=== PATIENT | female | born 1960 | race American Indian/Alaskan Native ===

== ENCOUNTER 2016-06-12 12:34 | Emergency (ER) | payer MEDICAID, SELFPAY ==
[2016-06-12 12:54] VITALS: BP 117/58
--- NOTE | 2016-06-12 14:20 | EDM.PDOC ---
Scribed by Jeanne Pate 06/12/16 [id number] for Tree Mcintosh MD ED HISTORY OF PRESENT ILLNESS - General Chief Complaint: Respiratory Problem Stated Complaint: COLD, BREATHING, STOMACH Time Seen by Provider: 06/12/16 13:20 Source of Information: Reports: Patient, RN, RN notes reviewed History Limitations: Reports: No limitations - History of Present Illness INITIAL COMMENTS - FREE TEXT/NARRATIVE: Complaining of cough with wheezing and increasing SOB x1 week. Denies fever or chills. Admits to occasional clear to white sputum. Denies chest pain or edema. Severity: moderate Location, General: Reports: chest Quality: Reports: Ache Improves with: Reports: None Worsens with: Reports: None Associated Symptoms (General): Reports: no other symptoms - Related Data Allergies/ADRs: Allergies Allergy/AdvReac Type Severity Reaction Status Date / Time cephalexin monohydrate Allergy Rash Verified 06/12/16 12:54 [From Keflex] codeine Allergy Hives Verified 06/12/16 12:54 hydroxyzine Allergy Cannot Verified 06/12/16 12:54 Remember propoxyphene napsylate Allergy Cannot Verified 06/12/16 12:54 [From Darvocet-N] Remember ondansetron AdvReac Intermediate Other Verified 06/12/16 12:54 Home Meds: Home Meds Loratadine [Claritin] 10 mg PO DAILY 05/08/13 [History] Montelukast [Singulair] 10 mg PO DAILY 08/23/13 [History] Levothyroxine 25 mcg PO DAILY 10/12/13 [History] Mometasone/Formoterol [Dulera 200 MCG/5 MCG] 2 puff INH BID 12/09/14 [History] Albuterol/Ipratropium [DuoNeb 3.0-0.5 MG/3 ML] 3 ml NEB Q6HRRT neb 01/14/15 [Rx ] Omeprazole 40 mg PO BIDAC #60 cap.sr 01/14/15 [Rx] Albuterol Sulfate [Proventil Hfa] 6.7 gm IH Q6HR PRN 05/15/15 [History] Benzonatate [Tessalon Perles] 200 mg PO TID PRN 05/15/15 [History] Aspirin 325 mg PO DAILY 02/18/16 [History] Clopidogrel [Plavix] 75 mg PO DAILY 02/18/16 [History] Past Medical History HEENT History: Reports: Allergic rhinitis, Impaired vision Other HEENT History: wears glasses but not her at this time Other Cardiovascular History: 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 Respiratory History: Reports: Asthma, COPD Gastrointestinal History: Reports: GERD, Hiatal hernia Other OB/BYN History: 4 nvd Musculoskeletal History: Reports: Arthritis Psychiatric History: Reports: Anxiety Endocrine/Metabolic History: Reports: Hypothyroidism, Obesity/BMI 30+ - Infectious Disease History Infectious Disease History: Reports: Chicken pox - Past Surgical History Other Musculoskeletal Surgeries/Procedures:: SCREW LEFT BUNION REPAIR Social & Family History - Family History Family Medical History: Noncontributory Cardiac: Reports: CAD, Heart failure, High cholesterol, Hypertension, [place] Respiratory: Reports: Asthma, COPD GI: Reports: Cholelithiasis : Reports: Renal disease/insufficiency Musculoskeletal: Reports: Arthritis, Back pain, chronic Neurological: Reports: CVA Endocrine/Metabolic: Reports: Diabetes, type II, Obesity/MBI 30+ Oncologic: Reports: Prostate - Tobacco Use Smoking Status *Q: Former Smoker Years of Tobacco use: 40 Packs/Tins Daily: 0.1 Used Tobacco, but Quit: Yes Month Tobacco Last Used: 2014 Second Hand Smoke Exposure: Yes - Caffeine Use Caffeine Use: Reports: Coffee, Soda - Alcohol Use Days Per Week of Alcohol Use: 0 - Recreational Drug Use Recreational Drug Use: No - Living Situation & Occupation Living situation: Reports: with family Occupation: unemployed ED ROS GENERAL - Review of Systems Review Of Systems: ROS reveals no pertinent complaints other than HPI. ED EXAM, GENERAL - Physical Exam Exam: See Below Exam Limited By: No limitations General Appearance: alert, WD/WN, no apparent distress, obese Eye Exam: bilateral eye: normal inspection Ears: normal external exam, normal canal, hearing grossly normal, normal TMs Nose: normal inspection, normal mucosa, no blood Throat/Mouth: Normal inspection, Normal lips, Normal teeth, Normal gums, Normal oropharynx, Normal voice, No airway compromise Head: atraumatic, normocephalic Neck: normal inspection, supple, non-tender, full range of motion Respiratory/Chest: no respiratory distress, no accessory muscle use, decreased breath sounds, wheezing, other (decreased sounds in bilateral bases. Scattered wheezes throughout bilateral lung harris. ) Cardiovascular: normal peripheral pulses, regular rate, rhythm, no edema, no gallop, no JVD, no murmur, no rub GI/Abdominal: normal bowel sounds, soft, non tender, no distention Back Exam: normal inspection, full range of motion, NT Extremities: normal inspection, normal range of motion, non-tender, normal capillary refill, no pedal edema Neurological: alert, oriented, CN II-XII intact, normal cognition, normal gait, normal reflexes, no motor/sensory deficits Psychiatric: normal affect, normal mood Skin Exam: Warm, Dry, Intact, Normal color, No rash Course - Vital Signs Last Recorded V/S: Last Vital Signs Temp 35.9 C 06/12/16 12:51 Pulse 80 06/12/16 12:51 Resp 16 06/12/16 12:51 BP 117/58 L 06/12/16 12:51 Pulse Ox 96 06/12/16 12:51 - Radiology Interpretation Free Text/Narrative:: chest x-ray: 9.4cm air fluid level in the retrocardiac region may represent a large hiatal hernia. Opacity in the left lower lobe may represent atelectasis or pneumonia per rad report. Departure - Departure Time of Disposition: 13:52 Disposition: Home, Self-Care 01 Condition: fair Clinical Impression: Acute exacerbation of chronic bronchitis, COPD with acute exacerbation Instructions: Chronic Obstructive Pulmonary Disease Exacerbation, [id number] , Acute Bronchitis, [id number] Forms: ED Department Discharge Additional Instructions: Zithromax 250mg. Prednisone 20mg. Tessalone Perles 200mg. Follow up in 2-3 days if not improved. I have read and agree with the documentation that has been completed regarding this visit. By signing this record, I attest that the documentation was completed in my physical presence and is an accurate record of the encounter.
== END 2016-06-12 13:55 | disposition home or self-care (01) ==
LOC: DL.ED 12:34
DX: J44.1 Chronic obstructive pulmonary disease with (acute) exacerbation (principal); J45.909 Unspecified asthma, uncomplicated; K21.9 Gastro-esophageal reflux disease without esophagitis; M19.90 Unspecified osteoarthritis, unspecified site; F41.9 Anxiety disorder, unspecified; E03.9 Hypothyroidism, unspecified; E66.9 Obesity, unspecified; Z88.1 Allergy status to other antibiotic agents; Z88.5 Allergy status to narcotic agent; Z88.8 Allergy status to other drugs, medicaments and biological substances; Z79.82 Long term (current) use of aspirin; Z79.899 Other long term (current) drug therapy; Z87.891 Personal history of nicotine dependence
CPT/HCPCS: 71020; 99283

== ENCOUNTER 2016-06-22 18:30 | Emergency (ER) | payer MEDICAID ==
[2016-06-22 22:43] LABS: CHLORIDE,CL 107 mmol/L (101-111); SODIUM,NA 137 mmol/L (135-145)
[2016-06-22 23:27] VITALS: BP 116/64
--- NOTE | 2016-06-22 23:50 | EDM.PDOC ---
ED HPI GENERAL MEDICAL PROBLEM - General Chief Complaint: Abdominal Pain Stated Complaint: STOMACH PAIN/HYNERIA Time Seen by Provider: 06/22/16 21:45 Source of Information: Reports: Patient History Limitations: Reports: No Limitations - History of Present Illness INITIAL COMMENTS - FREE TEXT/NARRATIVE: c/o lower abdominal pain right medial worse with movement. Has hx of hernia in area. Pain not relieved with tylenol or ibuprofen. Pain gradually increasing. attempted to contact PCP this afternoon around 1pm and was told to go to ER. No fever or nausea. Pain improved with rest. Initial referral to [facility] for suregery declined. Awaiting new referral for other facility for repair. Lower Abdominal Pain Score (Numeric/FACES): 8 - Related Data Allergies Allergy/AdvReac Type Severity Reaction Status Date / Time cephalexin monohydrate Allergy Rash Verified 06/12/16 12:54 [From Keflex] codeine Allergy Hives Verified 06/12/16 12:54 hydroxyzine Allergy Cannot Verified 06/12/16 12:54 Remember pantoprazole [From Protonix] Allergy Tremors Verified 06/22/16 18:58 propoxyphene napsylate Allergy Cannot Verified 06/12/16 12:54 [From Darvocet-N] Remember ondansetron AdvReac Intermediate Other Verified 06/12/16 12:54 Home Meds: Home Meds Loratadine [Claritin] 10 mg PO DAILY 05/08/13 [History] Montelukast [Singulair] 10 mg PO DAILY 08/23/13 [History] Levothyroxine 25 mcg PO DAILY 10/12/13 [History] Mometasone/Formoterol [Dulera 200 MCG/5 MCG] 2 puff INH BID 12/09/14 [History] Albuterol/Ipratropium [DuoNeb 3.0-0.5 MG/3 ML] 3 ml NEB Q6HRRT neb 01/14/15 [Rx ] Omeprazole 40 mg PO BIDAC #60 cap.sr 01/14/15 [Rx] Albuterol Sulfate [Proventil Hfa] 6.7 gm IH Q6HR PRN 05/15/15 [History] Benzonatate [Tessalon Perles] 200 mg PO TID PRN 05/15/15 [History] Aspirin 325 mg PO DAILY 02/18/16 [History] Clopidogrel [Plavix] 75 mg PO DAILY 02/18/16 [History] Past Medical History HEENT History: Reports: Allergic Rhinitis, Impaired Vision Other HEENT History: wears glasses but not her at this time Other Cardiovascular History: 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 Respiratory History: Reports: Asthma, COPD Gastrointestinal History: Reports: Cholelithiasis, GERD, Hiatal Hernia Other OB/BYN History: 4 nvd Musculoskeletal History: Reports: Arthritis Psychiatric History: Reports: Anxiety Endocrine/Metabolic History: Reports: Hypothyroidism, Obesity/BMI 30+ - Infectious Disease History Infectious Disease History: Reports: Chicken Pox - Past Surgical History GI Surgical History: Reports: Hernia Repair/Other Other Musculoskeletal Surgeries/Procedures:: SCREW LEFT BUNION REPAIR Social & Family History - Family History Family Medical History: Noncontributory Cardiac: Reports: CAD, Heart Failure, High Cholesterol, Hypertension, [place] Respiratory: Reports: Asthma, COPD GI: Reports: Cholelithiasis : Reports: Renal Disease/Insufficiency Musculoskeletal: Reports: Arthritis, Back pain, Chronic Neurological: Reports: CVA Endocrine/Metabolic: Reports: Diabetes, type II, Obesity/MBI 30+ Oncologic: Reports: Prostate - Tobacco Use Smoking Status *Q: Former Smoker Years of Tobacco use: 40 Packs/Tins Daily: 0.1 Used Tobacco, but Quit: Yes Month Tobacco Last Used: 2 Second Hand Smoke Exposure: Yes - Caffeine Use Caffeine Use: Reports: Soda, Tea - Alcohol Use Days Per Week of Alcohol Use: 0 - Recreational Drug Use Recreational Drug Use: No - Living Situation & Occupation Living situation: Reports: with Family Occupation: Unemployed ED ROS GENERAL - Review of Systems Review Of Systems: See Below Constitutional: Denies: Fever HEENT: Reports: No Symptoms Respiratory: Reports: Sputum Cardiovascular: Reports: No Symptoms GI/Abdominal: Reports: Abdominal Pain. Denies: Decreased Appetite, Distension, Nausea, Vomiting : Reports: No Symptoms Skin: Reports: No Symptoms Neurological: Reports: No Symptoms Psychiatric: Reports: No Symptoms ED EXAM, GI/ABD - Physical Exam Exam: See Below Exam Limited By: No Limitations General Appearance: Alert, Mild Distress, Obese Eyes: Bilateral: EOMI Ears: Normal External Exam Nose: Normal Inspection Throat/Mouth: Normal Inspection Head: Atraumatic, Normocephalic Neck: Normal Inspection Respiratory/Chest: No Respiratory Distress, Lungs Clear, Normal Breath Sounds Cardiovascular: Normal Peripheral Pulses, Regular Rate, Rhythm GI/Abdominal: Normal Bowel Sounds, Soft, Tenderness (mid right medial abdomen, point tenderness, no mass or bulging. ). No: Guarding, Rebound, Rigidity Neurological: Alert, Oriented Psychiatric: Normal Affect, Normal Mood Skin Exam: Warm, Dry, Intact, Normal Color Course - Vital Signs Last Recorded V/S: Last Vital Signs Temp 97.2 F 06/22/16 23:23 Pulse 62 06/22/16 23:23 Resp 16 06/22/16 23:23 BP 116/64 06/22/16 23:23 Pulse Ox 97 06/22/16 23:23 - Orders/Labs/Meds Orders: Active Orders 24 hr Category Date Time Status Abdomen Pelvis wo Cont [CT] Urgent Exams 06/22/16 23:01 Taken Labs: Laboratory Tests 06/22/16 06/22/16 06/22/16 Range/Units 22:14 22:14 22:54 WBC 10.2 H (5.0-10.0) 10^3/uL RBC 4.40 (4.2-5.4) 10^6/uL Hgb 11.3 L (12.0-16.0) g/dL Hct 37.0 (37.0-47.0) % MCV 84.1 (80-100) fL MCH 25.7 L (27.0-34.0) pg MCHC 30.5 L (33.0-35.0) g/dL Plt Count 247 (150-450) 10^3/uL Neut % (Auto) 69.7 (42.2-75.2) % Lymph % (Auto) 17.1 L (20.5-50.1) % Bell % (Auto) 6.0 (2-8) % Eos % (Auto) 6.8 H (1.0-3.0) % Baso % (Auto) 0.4 (0.0-1.0) % Sodium 137 (135-145) mmol/L Potassium 4.4 (3.6-5.0) mmol/L Chloride 107 (101-111) mmol/L Carbon Dioxide 27.0 (21.0-31.0) mmol/L Anion Gap 7.4 BUN 20 H (7-18) mg/dL Creatinine 0.6 (0.6-1.3) mg/dL Est Cr Clr Drug Dosing 83.79 mL/min Estimated GFR (MDRD) > 60 BUN/Creatinine Ratio 33.33 Glucose 99 (74-105) mg/dL Calcium 8.2 L (8.4-10.2) mg/dl Total Bilirubin 0.4 (0.2-1.0) mg/dL AST 19 (10-42) IU/L ALT 27 (10-60) IU/L Alkaline Phosphatase 77 (42-121) IU/L Total Protein 6.4 L (6.7-8.2) g/dl Albumin 3.6 (3.2-5.5) g/dl Globulin 2.8 Albumin/Globulin Ratio 1.29 Amylase 43 (28-100) U/L Urine Color Yellow (YELLOW) Urine Appearance Slightly cloudy (CLEAR) Urine pH 7.0 (5.0-9.0) Ur Specific [place] 1.020 (1.005-1.030) Urine Protein 30 H (NEGATIVE) Urine Glucose (UA) Negative (NEGATIVE) Urine Ketones Negative (NEGATIVE) Urine Occult Blood Negative (NEGATIVE) Urine Nitrite Negative (NEGATIVE) Urine Bilirubin Negative (NEGATIVE) Urine Urobilinogen 1.0 (0.2-1.0) mg/dL Ur Leukocyte Esterase Negative (NEGATIVE) Urine RBC 0-5 /HPF Urine WBC 0-5 (0-5/HPF) /HPF Ur Epithelial Cells Moderate H /HPF Urine Mucus Moderate H /LPF Meds: Medications Discontinued Medications Generic Name Dose Route Start Last Admin Trade Name Freq PRN Reason Stop Dose Admin Hydrocodone Bitart/Acetaminophen Confirm 06/22/16 23:55 06/23/16 00:01 [place] 325-10 Mg Administered 06/22/16 23:56 Not Given Dose 1 tab .ROUTE .STK-MED ONE - Radiology Interpretation Free Text/Narrative:: CT hiatal hernia, diverticulosis without diverticulitis, Departure - Departure Time of Disposition: 23:49 Disposition: Home, Self-Care 01 Condition: good Clinical Impression: Hernia Abdominal pain Qualifiers: Abdominal location: right lower quadrant Qualified Code(s): R10.31 - Right lower quadrant pain - Discharge Information Instructions: Abdominal Pain, Adult, [id number] Forms: ED Department Discharge Additional Instructions: hydrocodone 10/325 one every 8 hours as needed for pain #11 follow up in clinic as scheduled - My Orders Last 24 Hours: My Active Orders 06/22/16 23:01 Abdomen Pelvis wo Cont [CT] Urgent - Assessment/Plan Last 24 Hours: My Active Orders 06/22/16 23:01 Abdomen Pelvis wo Cont [CT] Urgent
[2016-06-22] MEDS ORDERED: Acetaminophen/HYDROcodone 325-10 MG Tab PO ONE (23:55)
[2016-06-22] MEDS ORDERED: Acetaminophen/HYDROcodone 325-10 MG Tab ONE (23:55)
== END 2016-06-22 23:58 | disposition home or self-care (01) ==
LOC: DL.ED 18:30
DX: K44.9 Diaphragmatic hernia without obstruction or gangrene (principal); K57.90 Diverticulosis of intestine, part unspecified, without perforation or abscess without bleeding; J44.9 Chronic obstructive pulmonary disease, unspecified; K21.9 Gastro-esophageal reflux disease without esophagitis; M19.90 Unspecified osteoarthritis, unspecified site; F41.9 Anxiety disorder, unspecified; E03.9 Hypothyroidism, unspecified; E66.9 Obesity, unspecified; Z98.890 Other specified postprocedural states; Z87.891 Personal history of nicotine dependence; Z88.8 Allergy status to other drugs, medicaments and biological substances; Z88.5 Allergy status to narcotic agent; Z79.82 Long term (current) use of aspirin; Z79.899 Other long term (current) drug therapy
CPT/HCPCS: 36415; 74176; 80053; 81001; 82150; 85025; 99284; A9270

== ENCOUNTER 2016-07-26 21:30 | Emergency (ER) | payer MEDICAID ==
[2016-07-27] VITALS: BP 99/62
[2016-07-27] MEDS ORDERED: Albuterol 0.083% 2.5 MG/3 ML Neb Soln NEB ONE (00:48)
[2016-07-27] MEDS ORDERED: predniSONE 20 MG Tab PO ONE (00:48)
[2016-07-27] MEDS ORDERED: Azithromycin 250 MG Tab PO ONE (00:49)
--- NOTE | 2016-07-27 00:54 | EDM.PDOC ---
ED HPI GENERAL MEDICAL PROBLEM - General Chief Complaint: Respiratory Problem Stated Complaint: BEATHING, LUNGS, [id number] Time Seen by Provider: 07/27/16 00:27 Source of Information: Reports: Patient - History of Present Illness INITIAL COMMENTS - FREE TEXT/NARRATIVE: sorethroat ear pain tuesday, now moved into chest. Mattery eye today, chills no fever. Hx COPD. Cough productive "bright green slime" - Related Data Allergies Allergy/AdvReac Type Severity Reaction Status Date / Time cephalexin monohydrate Allergy Rash Verified 07/26/16 21:54 [From Keflex] codeine Allergy Hives Verified 07/26/16 21:54 hydroxyzine Allergy Cannot Verified 07/26/16 21:54 Remember pantoprazole [From Protonix] Allergy Tremors Verified 07/26/16 21:54 propoxyphene napsylate Allergy Cannot Verified 07/26/16 21:54 [From Darvocet-N] Remember ondansetron AdvReac Intermediate Other Verified 07/26/16 21:54 Home Meds: Home Meds Loratadine [Claritin] 10 mg PO DAILY 05/08/13 [History] Montelukast [Singulair] 10 mg PO DAILY 08/23/13 [History] Levothyroxine 25 mcg PO DAILY 10/12/13 [History] Mometasone/Formoterol [Dulera 200 MCG/5 MCG] 2 puff INH BID 12/09/14 [History] Albuterol/Ipratropium [DuoNeb 3.0-0.5 MG/3 ML] 3 ml NEB Q6HRRT neb 01/14/15 [Rx ] Omeprazole 40 mg PO BIDAC #60 cap.sr 01/14/15 [Rx] Albuterol Sulfate [Proventil Hfa] 6.7 gm IH Q6HR PRN 05/15/15 [History] Benzonatate [Tessalon Perles] 200 mg PO TID PRN 05/15/15 [History] Aspirin 81 mg PO DAILY 02/18/16 [History] Past Medical History HEENT History: Reports: Allergic Rhinitis, Impaired Vision Other HEENT History: wears glasses but not her at this time Other Cardiovascular History: 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 Respiratory History: Reports: Asthma, COPD Gastrointestinal History: Reports: Cholelithiasis, GERD, Hiatal Hernia Other OB/BYN History: 4 nvd Musculoskeletal History: Reports: Arthritis Psychiatric History: Reports: Anxiety Endocrine/Metabolic History: Reports: Hypothyroidism, Obesity/BMI 30+ - Infectious Disease History Infectious Disease History: Reports: Chicken Pox - Past Surgical History GI Surgical History: Reports: Hernia Repair/Other Other Musculoskeletal Surgeries/Procedures:: SCREW LEFT BUNION REPAIR Social & Family History - Family History Family Medical History: Noncontributory Cardiac: Reports: CAD, Heart Failure, High Cholesterol, Hypertension, [place] Respiratory: Reports: Asthma, COPD GI: Reports: Cholelithiasis : Reports: Renal Disease/Insufficiency Musculoskeletal: Reports: Arthritis, Back pain, Chronic Neurological: Reports: CVA Endocrine/Metabolic: Reports: Diabetes, type II, Obesity/MBI 30+ Oncologic: Reports: Prostate - Tobacco Use Smoking Status *Q: Unknown Ever Smoked Years of Tobacco use: 40 Packs/Tins Daily: 0.1 Used Tobacco, but Quit: Yes Month Tobacco Last Used: 2 Second Hand Smoke Exposure: No - Caffeine Use Caffeine Use: Reports: Coffee - Alcohol Use Days Per Week of Alcohol Use: 0 - Recreational Drug Use Recreational Drug Use: No - Living Situation & Occupation Living situation: Reports: with Family Occupation: Unemployed ED ROS GENERAL - Review of Systems Review Of Systems: See Below Constitutional: Reports: No Symptoms HEENT: Reports: Ear Pain, Eye Discharge, Throat Pain, Throat Swelling Respiratory: Reports: Shortness of Breath, Wheezing Cardiovascular: Denies: No Symptoms GI/Abdominal: Reports: No Symptoms : Reports: No Symptoms Musculoskeletal: Reports: No Symptoms Skin: Reports: No Symptoms ED EXAM, GENERAL - Physical Exam Exam: See Below Exam Limited By: No Limitations General Appearance: Alert, Mild Distress Eye Exam: Bilateral Eye: EOMI Ears: Normal External Exam Ear Exam: Bilateral Ear: Discharge Nose: Normal Inspection Throat/Mouth: Normal Inspection Head: Atraumatic, Normocephalic Neck: Normal Inspection Respiratory/Chest: No Respiratory Distress, Lungs Clear, Normal Breath Sounds, Wheezing Cardiovascular: Normal Peripheral Pulses, Regular Rate, Rhythm GI/Abdominal: Normal Bowel Sounds Extremities: Normal Inspection Neurological: Alert, Oriented, Normal Cognition Psychiatric: Normal Affect Skin Exam: Warm, Dry, Intact, Normal Color Course - Vital Signs Last Recorded V/S: Last Vital Signs Temp 97.4 F 07/26/16 21:59 Pulse 67 07/27/16 00:00 Resp 20 07/27/16 00:00 BP 99/62 07/27/16 00:00 Pulse Ox 95 07/27/16 00:00 - Orders/Labs/Meds Orders: Active Orders 24 hr Category Date Time Status RT Aerosol Therapy [RC] ASDIRECTED Care 07/27/16 00:48 Active Meds: Medications Discontinued Medications Generic Name Dose Route Start Last Admin Trade Name Freq PRN Reason Stop Dose Admin Albuterol 2.5 mg 07/27/16 00:48 07/27/16 01:06 Proventil Neb Soln NEB 07/27/16 00:49 2.5 mg ONETIME ONE Administration Azithromycin 500 mg 07/27/16 00:49 07/27/16 01:04 Zithromax PO 07/27/16 00:50 500 mg ONETIME ONE Administration Prednisone 40 mg 07/27/16 00:48 07/27/16 01:05 Prednisone PO 07/27/16 00:49 40 mg ONETIME ONE Administration - Radiology Interpretation Free Text/Narrative:: CXR negative for acute process Departure - Departure Time of Disposition: 00:51 Disposition: Home, Self-Care 01 Condition: Fair Clinical Impression: COPD with acute exacerbation URI (upper respiratory infection) Qualifiers: URI type: unspecified URI Qualified Code(s): J06.9 - Acute upper respiratory infection, unspecified - Discharge Information Referrals: Florin Salmeron MD [Primary Care Provider] - Forms: ED Department Discharge Additional Instructions: prednisone 40mg in am then 20mg daily for 5 days azithromycin 250mg daily for 4 days continue nebulizer treatments follow up if not improving - My Orders Last 24 Hours: My Active Orders 07/27/16 00:48 RT Aerosol Therapy [RC] ASDIRECTED - Assessment/Plan Last 24 Hours: My Active Orders 07/27/16 00:48 RT Aerosol Therapy [RC] ASDIRECTED
== END 2016-07-27 01:21 | disposition home or self-care (01) ==
LOC: DL.ED 21:30
DX: J44.1 Chronic obstructive pulmonary disease with (acute) exacerbation (principal); J06.9 Acute upper respiratory infection, unspecified; J45.909 Unspecified asthma, uncomplicated; H54.7 Unspecified visual loss; K21.9 Gastro-esophageal reflux disease without esophagitis; M19.90 Unspecified osteoarthritis, unspecified site; E03.9 Hypothyroidism, unspecified; Z79.82 Long term (current) use of aspirin; E66.9 Obesity, unspecified; Z88.5 Allergy status to narcotic agent; Z88.8 Allergy status to other drugs, medicaments and biological substances; Z79.899 Other long term (current) drug therapy
CPT/HCPCS: 71010; 94640; 99283; A9270; J7620

== ENCOUNTER 2016-08-13 17:52 | Emergency (ER) | payer MEDICAID ==
[2016-08-13] MEDS ORDERED: Metoclopramide 10 MG/2 ML SDV IVPUSH ONE (19:06)
[2016-08-13] MEDS ORDERED: fentaNYL 100 MCG/2 ML SDV IVPUSH ONE (19:07)
[2016-08-13 19:53] LABS: CHLORIDE,CL 108 mmol/L (101-111); SODIUM,NA 141 mmol/L (135-145)
[2016-08-13 22:20] VITALS: BP 124/44
--- NOTE | 2016-08-13 23:43 | EDM.PDOC ---
ED HPI GENERAL MEDICAL PROBLEM - General Chief Complaint: Abdominal Pain Stated Complaint: ABD PAINS, HERNIA, [id number] Time Seen by Provider: 08/13/16 19:10 Source of Information: Reports: Patient History Limitations: Reports: No Limitations - History of Present Illness INITIAL COMMENTS - FREE TEXT/NARRATIVE: C/O severe abdominal pain since around noon after vacuuming. Nauseated this genna with one emesis. Known hiatal hernia, but pain is different more severe pain and nausea tonight. Onset: Today Duration: Constant Right Upper Abdomen Pain Score (Numeric/FACES): 2 - Related Data Allergies Allergy/AdvReac Type Severity Reaction Status Date / Time cephalexin monohydrate Allergy Rash Verified 08/13/16 18:50 [From Keflex] codeine Allergy Hives Verified 08/13/16 18:50 hydroxyzine Allergy Cannot Verified 08/13/16 18:50 Remember pantoprazole [From Protonix] Allergy Tremors Verified 08/13/16 18:50 propoxyphene napsylate Allergy Cannot Verified 08/13/16 18:50 [From Darvocet-N] Remember ondansetron AdvReac Intermediate Other Verified 08/13/16 18:50 Home Meds: Home Meds Loratadine [Claritin] 10 mg PO DAILY 05/08/13 [History] Montelukast [Singulair] 10 mg PO DAILY 08/23/13 [History] Levothyroxine 25 mcg PO DAILY 10/12/13 [History] Mometasone/Formoterol [Dulera 200 MCG/5 MCG] 2 puff INH BID 12/09/14 [History] Albuterol/Ipratropium [DuoNeb 3.0-0.5 MG/3 ML] 3 ml NEB Q6HRRT neb 01/14/15 [Rx ] Omeprazole 40 mg PO BIDAC #60 cap.sr 01/14/15 [Rx] Albuterol Sulfate [Proventil Hfa] 6.7 gm IH Q6HR PRN 05/15/15 [History] Benzonatate [Tessalon Perles] 200 mg PO TID PRN 05/15/15 [History] Aspirin 81 mg PO DAILY 02/18/16 [History] Past Medical History HEENT History: Reports: Allergic Rhinitis, Impaired Vision Other HEENT History: wears glasses but not her at this time Other Cardiovascular History: 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 Respiratory History: Reports: Asthma, COPD Gastrointestinal History: Reports: Cholelithiasis, GERD, Hiatal Hernia 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: Other OB/BYN History: 4 nvd Musculoskeletal History: Reports: Arthritis, Other (See Below) Other Musculoskeletal History: foot Psychiatric History: Reports: Anxiety Endocrine/Metabolic History: Reports: Hypothyroidism, Obesity/BMI 30+ - Infectious Disease History Infectious Disease History: Reports: Chicken Pox - Past Surgical History GI Surgical History: Reports: Cholecystectomy, Hernia Repair/Other Other Musculoskeletal Surgeries/Procedures:: SCREW LEFT BUNION REPAIR Social & Family History - Family History Family Medical History: Noncontributory Cardiac: Reports: CAD, Heart Failure, High Cholesterol, Hypertension, [place] Respiratory: Reports: Asthma, COPD GI: Reports: Cholelithiasis : Reports: Renal Disease/Insufficiency Musculoskeletal: Reports: Arthritis, Back pain, Chronic Neurological: Reports: CVA Endocrine/Metabolic: Reports: Diabetes, type II, Obesity/MBI 30+ Oncologic: Reports: Prostate - Tobacco Use Smoking Status *Q: Never Smoker Years of Tobacco use: 40 Packs/Tins Daily: 0.1 Used Tobacco, but Quit: Yes Month Tobacco Last Used: 2 Second Hand Smoke Exposure: No - Caffeine Use Caffeine Use: Reports: None - Alcohol Use Days Per Week of Alcohol Use: 0 - Recreational Drug Use Recreational Drug Use: No - Living Situation & Occupation Living situation: Reports: with Family Occupation: Unemployed ED ROS GENERAL - Review of Systems Review Of Systems: See Below Constitutional: Denies: Fever HEENT: Reports: No Symptoms Respiratory: Reports: No Symptoms Cardiovascular: Reports: No Symptoms GI/Abdominal: Reports: Abdominal Pain, Diarrhea, Decreased Appetite, Distension , Nausea, Vomiting (x1) : Reports: No Symptoms Musculoskeletal: Reports: No Symptoms Skin: Reports: No Symptoms Neurological: Reports: No Symptoms Psychiatric: Reports: No Symptoms ED EXAM, GI/ABD - Physical Exam Exam: See Below Exam Limited By: No Limitations General Appearance: Alert, Mild Distress, Obese Eyes: Bilateral: EOMI Ears: Normal External Exam, Normal TMs Nose: Normal Inspection Throat/Mouth: Normal Inspection, Normal Oropharynx Head: Atraumatic, Normocephalic Neck: Normal Inspection, Full Range of Motion Respiratory/Chest: No Respiratory Distress, Lungs Clear, Normal Breath Sounds Cardiovascular: Normal Peripheral Pulses, Regular Rate, Rhythm GI/Abdominal: Hypoactive Bowel Sounds, Tenderness, Distention. No: Tympanic Bowel Sounds, Guarding Back Exam: Normal Inspection Extremities: Normal Inspection Neurological: Alert, Oriented Psychiatric: Normal Affect Skin Exam: Warm, Dry, Intact Course - Vital Signs Last Recorded V/S: Last Vital Signs Temp 97.4 F 08/13/16 22:20 Pulse 72 08/13/16 22:20 Resp 16 08/13/16 22:20 BP 124/44 L 08/13/16 22:20 Pulse Ox 96 08/13/16 22:20 - Orders/Labs/Meds Labs: Laboratory Tests 08/13/16 08/13/16 08/13/16 Range/Units 19:08 19:25 19:25 WBC 7.8 (5.0-10.0) 10^3/uL RBC 4.73 (4.2-5.4) 10^6/uL Hgb 12.1 (12.0-16.0) g/dL Hct 38.7 (37.0-47.0) % MCV 81.8 (80-100) fL MCH 25.6 L (27.0-34.0) pg MCHC 31.3 L (33.0-35.0) g/dL Plt Count 266 (150-450) 10^3/uL Neut % (Auto) 69.4 (42.2-75.2) % Lymph % (Auto) 16.0 L (20.5-50.1) % Fleming % (Auto) 5.1 (2-8) % Eos % (Auto) 8.7 H (1.0-3.0) % Baso % (Auto) 0.8 (0.0-1.0) % PT 9.8 (9.0-12.0) SEC INR 1.0 (0.9-1.2) Sodium 141 (135-145) mmol/L Potassium 4.4 (3.6-5.0) mmol/L Chloride 108 (101-111) mmol/L Carbon Dioxide 23.0 (21.0-31.0) mmol/L Anion Gap 14.4 BUN 20 H (7-18) mg/dL Creatinine 0.8 (0.6-1.3) mg/dL Est Cr Clr Drug Dosing 62.10 mL/min Estimated GFR (MDRD) > 60 BUN/Creatinine Ratio 25.00 Glucose 104 (74-105) mg/dL Calcium 9.3 (8.4-10.2) mg/dl Total Bilirubin 0.3 (0.2-1.0) mg/dL AST 23 (10-42) IU/L ALT 29 (10-60) IU/L Alkaline Phosphatase 80 (42-121) IU/L Troponin I < 0.02 (0.00-0.02) ng/ml Total Protein 7.0 (6.7-8.2) g/dl Albumin 4.3 (3.2-5.5) g/dl Globulin 2.7 Albumin/Globulin Ratio 1.59 Amylase 46 (28-100) U/L Lipase 27 (22-51) U/L Meds: Medications Discontinued Medications Generic Name Dose Route Start Last Admin Trade Name Fazalq PRN Reason Stop Dose Admin Hydrocodone Bitart/Acetaminophen Confirm 08/13/16 23:49 08/13/16 23:51 [place] 325-10 Mg Administered 08/13/16 23:50 Not Given Dose 2 tab .ROUTE .STK-MED ONE Fentanyl 25 mcg 08/13/16 19:07 08/13/16 19:17 Sublimaze IVPUSH 08/13/16 19:08 25 mcg ONETIME ONE Administration Metoclopramide HCl 10 mg 08/13/16 19:06 08/13/16 19:16 Reglan IVPUSH 08/13/16 19:07 10 mg ONETIME ONE Administration - Radiology Interpretation Free Text/Narrative:: CT, Hiatal hernia, no obstruction Departure - Departure Time of Disposition: 23:38 Disposition: Home, Self-Care 01 Condition: Good Clinical Impression: Hiatal hernia Abdominal pain Qualifiers: Abdominal location: generalized Qualified Code(s): R10.84 - Generalized abdominal pain - Discharge Information Instructions: Abdominal Pain, Adult, [id number] Referrals: Florin Salmeron MD [Primary Care Provider] - Forms: ED Department Discharge Additional Instructions: light diet rest light activity follow up with PCP next week Hydrocodone 10/325 one every 8 hours as needed for pain #2
[2016-08-13] MEDS ORDERED: Acetaminophen/HYDROcodone 325-10 MG Tab ONE (23:49)
[2016-08-13] MEDS ORDERED: Acetaminophen/HYDROcodone 325-10 MG Tab PO ONE (23:49)
== END 2016-08-13 23:56 | disposition home or self-care (01) ==
LOC: DL.ED 17:52
DX: K44.9 Diaphragmatic hernia without obstruction or gangrene (principal); J45.909 Unspecified asthma, uncomplicated; J44.9 Chronic obstructive pulmonary disease, unspecified; K21.9 Gastro-esophageal reflux disease without esophagitis; M19.90 Unspecified osteoarthritis, unspecified site; F41.9 Anxiety disorder, unspecified; E03.9 Hypothyroidism, unspecified; E66.9 Obesity, unspecified; Z90.49 Acquired absence of other specified parts of digestive tract; Z98.890 Other specified postprocedural states; Z79.82 Long term (current) use of aspirin; Z79.899 Other long term (current) drug therapy; Z88.5 Allergy status to narcotic agent; Z88.1 Allergy status to other antibiotic agents; Z88.8 Allergy status to other drugs, medicaments and biological substances
CPT/HCPCS: 36415; 74176; 80053; 82150; 83690; 84484; 85025; 85610; 96374; 96375; 99284; J2765; J3010; A9270-GY

== ENCOUNTER 2016-09-06 20:04 | Emergency (ER) | payer MEDICAID ==
[2016-09-06 21:02] VITALS: BP 114/95
[2016-09-07] MEDS ORDERED: Acetaminophen/oxyCODONE 325-5 MG Tab PO ONE (00:51)
--- NOTE | 2016-09-07 01:11 | EDM.PDOC ---
[id number]: TEENA BARBOZA, [id number] Time Seen by Provider: 09/07/16 00:25 Source of Information: Reports: Patient History Limitations: Reports: No Limitations - History of Present Illness INITIAL COMMENTS - FREE TEXT/NARRATIVE: c/o mid abdominal pain since [place]. Hx hiatal hernia and appointment scheduled on Tuesday with surgeon. Has not tried anything except warm blanket to abdomen.States she didn't have any money to get anything OTC. No change in pain from usual. No vomiting or fever. Right Upper Abdomen Pain Score (Numeric/FACES): 8 - Related Data Allergies Allergy/AdvReac Type Severity Reaction Status Date / Time cephalexin monohydrate Allergy Rash Verified 09/06/16 21:02 [From Keflex] codeine Allergy Hives Verified 09/06/16 21:02 hydroxyzine Allergy Cannot Verified 09/06/16 21:02 Remember pantoprazole [From Protonix] Allergy Tremors Verified 09/06/16 21:02 propoxyphene napsylate Allergy Cannot Verified 09/06/16 21:02 [From Darvocet-N] Remember ondansetron AdvReac Intermediate Other Verified 09/06/16 21:02 Home Meds: Home Meds Loratadine [Claritin] 10 mg PO DAILY 05/08/13 [History] Montelukast [Singulair] 10 mg PO DAILY 08/23/13 [History] Levothyroxine 25 mcg PO DAILY 10/12/13 [History] Mometasone/Formoterol [Dulera 200 MCG/5 MCG] 2 puff INH BID 12/09/14 [History] Albuterol/Ipratropium [DuoNeb 3.0-0.5 MG/3 ML] 3 ml NEB Q6HRRT neb 01/14/15 [Rx ] Omeprazole 40 mg PO BIDAC #60 cap.sr 01/14/15 [Rx] Albuterol Sulfate [Proventil Hfa] 6.7 gm IH Q6HR PRN 05/15/15 [History] Benzonatate [Tessalon Perles] 200 mg PO TID PRN 05/15/15 [History] Aspirin 81 mg PO DAILY 02/18/16 [History] Past Medical History HEENT History: Reports: Allergic Rhinitis, Impaired Vision Other HEENT History: wears glasses but not her at this time Cardiovascular History: Reports: [place] Other Cardiovascular History: 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 Respiratory History: Reports: Asthma, COPD Gastrointestinal History: Reports: Cholelithiasis, GERD, 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 OB/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 History: 4 nvd Musculoskeletal History: Reports: Arthritis, Other (See Below) Other Musculoskeletal History: foot Psychiatric History: Reports: Anxiety Endocrine/Metabolic History: Reports: Hypothyroidism, Obesity/BMI 30+ - Infectious Disease History Infectious Disease History: Reports: Chicken Pox - Past Surgical History GI Surgical History: Reports: Cholecystectomy, Hernia Repair/Other Other Musculoskeletal Surgeries/Procedures:: SCREW LEFT BUNION REPAIR Social & Family History - Family History Family Medical History: Noncontributory Cardiac: Reports: CAD, Heart Failure, High Cholesterol, Hypertension, [place] Respiratory: Reports: Asthma, COPD GI: Reports: Cholelithiasis : Reports: Renal Disease/Insufficiency Musculoskeletal: Reports: Arthritis, Back pain, Chronic Neurological: Reports: CVA Endocrine/Metabolic: Reports: Diabetes, type II, Obesity/MBI 30+ Oncologic: Reports: Prostate - Tobacco Use Smoking Status *Q: Never Smoker Years of Tobacco use: 40 Packs/Tins Daily: 0.1 Used Tobacco, but Quit: Yes Month Tobacco Last Used: 2 Second Hand Smoke Exposure: No - Caffeine Use Caffeine Use: Reports: None - Alcohol Use Days Per Week of Alcohol Use: 0 - Recreational Drug Use Recreational Drug Use: No - Living Situation & Occupation Living situation: Reports: with Family Occupation: Unemployed ED ROS GENERAL - Review of Systems Review Of Systems: ROS reveals no pertinent complaints other than HPI. ED EXAM, GI/ABD - Physical Exam Exam: See Below Exam Limited By: No Limitations General Appearance: Alert, Mild Distress Eyes: Bilateral: EOMI Ears: Normal External Exam Nose: Normal Inspection Throat/Mouth: Normal Inspection, Normal Lips, Normal Oropharynx, Normal Voice Head: Atraumatic, Normocephalic Neck: Normal Inspection, Full Range of Motion Respiratory/Chest: No Respiratory Distress, Lungs Clear, Normal Breath Sounds Cardiovascular: Normal Peripheral Pulses, Regular Rate, Rhythm GI/Abdominal Exam: Normal Bowel Sounds, Soft, No Organomegaly, No Distention, Tender (mid abdomen with palpation and movment). No: Distended, Guarding, Rigid, Rebound, Abnormal Bowel Sounds Extremities: Normal Inspection Neurological: Alert, Oriented, Normal Cognition Psychiatric: Normal Affect Skin Exam: Warm, Dry, Intact, Normal Color Course - Vital Signs Last Recorded V/S: Last Vital Signs Temp 97.6 F 09/06/16 20:58 Pulse 96 09/06/16 20:58 Resp 20 09/06/16 20:58 BP 114/95 H 09/06/16 20:58 Pulse Ox 98 09/06/16 20:58 - Orders/Labs/Meds Meds: Medications Discontinued Medications Generic Name Dose Route Start Last Admin Trade Name Pedro Luis PRN Reason Stop Dose Admin Oxycodone/Acetaminophen 1 tab 09/07/16 00:51 09/07/16 00:59 Percocet 325-5 Mg PO 09/07/16 00:52 1 tab ONETIME ONE Administration Departure - Departure Time of Disposition: 01:07 Disposition: Home, Self-Care 01 Condition: Good Clinical Impression: Hiatal hernia, Abdominal pain - Discharge Information Instructions: Abdominal Pain, Adult, [id number] Forms: ED Department Discharge Additional Instructions: percocety 5/325 one every 12 hours as needed for severe pain follow with surgeon as scheduled tylenol or ibuprofen for mild- moderate pain
== END 2016-09-07 01:13 | disposition home or self-care (01) ==
LOC: DL.ED 20:04
DX: K44.9 Diaphragmatic hernia without obstruction or gangrene (principal); J45.909 Unspecified asthma, uncomplicated; I25.2 Old myocardial infarction; J44.9 Chronic obstructive pulmonary disease, unspecified; K21.9 Gastro-esophageal reflux disease without esophagitis; F41.9 Anxiety disorder, unspecified; E03.9 Hypothyroidism, unspecified; E66.9 Obesity, unspecified; Z68.39 Body mass index [BMI] 39.0-39.9, adult; Z79.82 Long term (current) use of aspirin; Z79.899 Other long term (current) drug therapy; Z90.49 Acquired absence of other specified parts of digestive tract; Z98.890 Other specified postprocedural states; Z88.1 Allergy status to other antibiotic agents; Z88.5 Allergy status to narcotic agent; Z88.8 Allergy status to other drugs, medicaments and biological substances
CPT/HCPCS: 99283; A9270

== ENCOUNTER 2017-01-27 05:08 | Day surgery (SDC) | payer MEDICAID ==
[2017-01-27] MEDS ORDERED: fentaNYL 100 MCG/2 ML SDV IV ONE ×3 (05:09→06:32)
[2017-01-27] MEDS ORDERED: Midazolam 1 MG/ML 2 ML SDV IV ONE ×3 (05:09→06:34)
[2017-01-27] MEDS ORDERED: Dextrose 5%-0.45% NaCl 1,000 ML IV SCH (06:00)
[2017-01-27] MEDS ORDERED: Sodium Chloride 0.9% 10 ML Syringe FLUSH PRN (06:00)
[2017-01-27] MEDS ORDERED: fentaNYL 100 MCG/2 ML SDV ONE (06:22)
[2017-01-27] MEDS ORDERED: Midazolam 1 MG/ML 2 ML SDV ONE (06:22)
[2017-01-27 10:12] VITALS: BP 108/55
--- NOTE | 2017-01-27 10:33 | OR ---
DATE: 01/27/2017 PROCEDURE: Esophagogastroduodenoscopy and multiple pinch biopsies. INSTRUMENT USED: GIF-H180 Olympus video panendoscope. PREMEDICATIONS: No oral topical anesthesia used. Fentanyl 100 mcg intravenous, Versed 2 mg intravenous. Nasal O2 cannula. The procedure was done under pulse oximetry, BP recording, and glass handler. INDICATION: The patient with longstanding difficulties of heartburn and status post Fernando fundoplication with persistent heartburn, upper abdominal pain, as well as some dysphagia, iron deficiency noted. Esophagogastroduodenoscopy is performed for detection of any active erosive lesions, H. pylori status to be determined, small bowel biopsies to be obtained for celiac disease if indicated, esophageal dilatations if indicated, endoscopic hemostasis therapy if needed. DESCRIPTION OF PROCEDURE: The scope was passed with ease. Adequate visualization of the esophagus was made from proximal to distal areas. No upper esophageal lesions identified. There was considerable deformity involving the distal esophagus and proximal gastric fundus area. No uphill or downhill esophageal varices. No Adela-Gordon tear. No evidence of erosive esophagitis by Rosanky criteria. No esophageal polyp or tumor mass identified. No proximal gastric varices noted. Gastric fundus examination by retroflexion showed no polypoid lesions, no gastric ulcer, malignant mass, or vascular ectasia identified. Duodenal bulb showed no ulcer. Visualized second part of the duodenum was unremarkable. Multiple pinch biopsies 4 in number were taken from different areas of the second part of the duodenum, tissues were also obtained from 9 and 12 o'clock positions of the duodenal bulb and sent for histopathologic evidence of celiac disease. Multiple pinch biopsies were obtained from the gastric antrum and proximal body and sent for PyloriTek test for H. pylori and histopathology. Scattered gastric antral erosions were noted. No bleeding was noted from any of the visualized areas at the completion of examination. Photographs were taken of the duodenal bulb, gastric antrum, fundus, and distal esophagus. There was some amount of food material retained in the stomach. IMPRESSION: 1. Status post Fernando fundoplication. 2. Gastric antral erosions. The patient tolerated the procedure well. [facility] /[id number]
== END 2017-01-27 08:53 | disposition home or self-care (01) ==
LOC: DL.ENDO 05:08
PROVIDERS: ATTEND Internal Medicine Gastroenterology
DX: K29.50 Unspecified chronic gastritis without bleeding (principal); K25.9 Gastric ulcer, unspecified as acute or chronic, without hemorrhage or perforation; K31.89 Other diseases of stomach and duodenum; K21.9 Gastro-esophageal reflux disease without esophagitis; F41.1 Generalized anxiety disorder; J44.9 Chronic obstructive pulmonary disease, unspecified; E66.09 Other obesity due to excess calories; Z68.38 Body mass index [BMI] 38.0-38.9, adult; Z79.82 Long term (current) use of aspirin; Z79.899 Other long term (current) drug therapy; Z91.011 Allergy to milk products; Z90.710 Acquired absence of both cervix and uterus; Z98.890 Other specified postprocedural states; Z87.891 Personal history of nicotine dependence
CPT/HCPCS: 43239; 87077; J2250; J3010; J7042

== ENCOUNTER 2017-07-09 18:39 | Emergency (ER) | payer MEDICAID ==
[2017-07-09] MEDS ORDERED: predniSONE 20 MG Tab PO ONE (18:40)
[2017-07-09] MEDS ORDERED: Benzonatate 100 MG Cap PO ONE (18:40)
[2017-07-09] MEDS ORDERED: Azithromycin 250 MG Tab PO ONE (18:40)
--- NOTE | 2017-07-09 19:06 | EDM.PDOC ---
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 Productive cough yellow phlegm. Heartburn. Chills today. Chest Pain Score (Numeric/FACES): 8 - Related Data Allergies Allergy/AdvReac Type Severity Reaction Status Date / Time cephalexin monohydrate Allergy Rash Verified 07/09/17 18:55 [From Keflex] codeine Allergy Hives Verified 07/09/17 18:55 hydroxyzine Allergy Cannot Verified 07/09/17 18:55 Remember pantoprazole [From Protonix] Allergy Tremors Verified 07/09/17 18:55 propoxyphene napsylate Allergy Cannot Verified 07/09/17 18:55 [From Darvocet-N] Remember ondansetron AdvReac Intermediate Other Verified 07/09/17 18:55 Home Meds: Home Meds Montelukast [Singulair] 10 mg PO DAILY 08/23/13 [History] Levothyroxine 75 mcg PO DAILY 10/12/13 [History] Mometasone/Formoterol [Dulera 200 MCG/5 MCG] 2 puff INH BID 12/09/14 [History] Albuterol/Ipratropium [DuoNeb 3.0-0.5 MG/3 ML] 3 ml NEB Q6HRRT neb 01/14/15 [Rx ] Albuterol Sulfate [Proventil Hfa] 6.7 gm IH Q6HR PRN 05/15/15 [History] Benzonatate [Tessalon Perles] 200 mg PO TID PRN 05/15/15 [History] Aspirin 81 mg PO DAILY 02/18/16 [History] Diclofenac Sodium [Voltaren 1% Gel] 1 applic TOP ASDIRECTED 01/26/17 [History] Docusate Sodium [Diocto] 1 dose PO ASDIRECTED 01/26/17 [History] Fluticasone Propionate [Flonase Allergy Relief] 1 - 2 spray NASBOTH ASDIRECTED 01/26/17 [History] Mupirocin Oint [Bactroban Oint] 1 applic TOP ASDIRECTED 01/26/17 [History] Phentermine HCl 1 cap PO DAILY 01/26/17 [History] Sertraline [Zoloft] 1 tab PO DAILY 01/26/17 [History] atorvaSTATin [Lipitor] 1 tab PO DAILY 01/26/17 [History] Omeprazole 20 mg PO BIDAC 01/27/17 [History] Past Medical History HEENT History: Reports: Allergic Rhinitis, Impaired Vision Other HEENT History: wears glasses but not her at this time Cardiovascular History: Reports: [place] Other Cardiovascular History: 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 Respiratory History: Reports: Asthma, COPD Gastrointestinal History: Reports: Cholelithiasis, GERD, Hiatal Hernia Genitourinary History: Reports: None 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/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 History: 4 nvd Musculoskeletal History: Reports: Arthritis, Other (See Below) Other Musculoskeletal History: foot Neurological History: Reports: None Psychiatric History: Reports: Anxiety Endocrine/Metabolic History: Reports: Hypothyroidism, Obesity/BMI 30+ Hematologic History: Reports: None Immunologic History: Reports: None Oncologic (Cancer) History: Reports: None Dermatologic History: Reports: None - Infectious Disease History Infectious Disease History: Reports: Chicken Pox, Measles - Past Surgical History HEENT Surgical History: Reports: Adenoidectomy, Tonsillectomy GI Surgical History: Reports: Bariatric Procedure, Cholecystectomy, EGD, Hernia Repair/Other, Fernando Fundoplication Other GI Surgeries/Procedures: laser surgery on gallbladder Female Surgical History: Reports: Hysterectomy Musculoskeletal Surgical History: Reports: Other (See Below) Other Musculoskeletal Surgeries/Procedures:: SCREW LEFT BUNION REPAIR Social & Family History - Family History Family Medical History: Noncontributory Cardiac: Reports: CAD, Heart Failure, High Cholesterol, Hypertension, [place] Respiratory: Reports: Asthma, COPD GI: Reports: GERD : Reports: Renal Disease/Insufficiency Musculoskeletal: Reports: Arthritis, Back pain, Chronic Neurological: Reports: CVA Endocrine/Metabolic: Reports: Diabetes, type II, Obesity/MBI 30+ Oncologic: Reports: Other (See Below) Other Oncologic Family History: MOTHER HAD STOMACH CA. - Tobacco Use Smoking Status *Q: Never Smoker - Caffeine Use Caffeine Use: Reports: Coffee - Recreational Drug Use Recreational Drug Use: No - Living Situation & Occupation Living situation: Reports: with Family Occupation: Unemployed ED ROS GENERAL - Review of Systems Review Of Systems: ROS reveals no pertinent complaints other than HPI. ED EXAM, GENERAL - Physical Exam Exam: See Below Exam Limited By: No Limitations General Appearance: Alert, Mild Distress Eye Exam: Bilateral Eye: EOMI Ears: Normal External Exam, Hearing Grossly Normal Ear Exam: Right Ear: TM Red, Left Ear: TM Dull (effusion) Nose: Normal Inspection Throat/Mouth: Normal Inspection Head: Atraumatic, Normocephalic Neck: Normal Inspection Respiratory/Chest: Crackles (fine right), Wheezing (bilateral throughout) Cardiovascular: Normal Peripheral Pulses, Regular Rate, Rhythm GI/Abdominal: Normal Bowel Sounds, Soft. No: Tender Neurological: Alert, Oriented, Normal Cognition Skin Exam: Warm, Dry, Intact Course - Vital Signs Last Recorded V/S: Last Vital Signs Temp 97.8 F 07/09/17 19:35 Pulse 61 07/09/17 19:35 Resp 20 07/09/17 19:35 BP 116/31 L 07/09/17 19:35 Pulse Ox 95 07/09/17 19:35 - Orders/Labs/Meds Orders: Active Orders 24 hr Category Date Time Status EKG Documentation Completion [RC] URGENT Care 07/09/17 19:03 Active RT Aerosol Therapy [RC] ASDIRECTED Care 07/09/17 19:02 Active Labs: Laboratory Tests 07/09/17 07/09/17 07/09/17 Range/Units 19:05 19:05 19:05 WBC 7.4 (5.0-10.0) 10^3/uL RBC 4.57 (4.2-5.4) 10^6/uL Hgb 12.7 (12.0-16.0) g/dL Hct 39.7 (37.0-47.0) % MCV 86.9 D (80-100) fL MCH 27.8 (27.0-34.0) pg MCHC 32.0 L (33.0-35.0) g/dL Plt Count 265 (150-450) 10^3/uL Neut % (Auto) 60.0 (42.2-75.2) % Lymph % (Auto) 19.7 L (20.5-50.1) % Cook % (Auto) 6.7 (2-8) % Eos % (Auto) 13.1 H (1.0-3.0) % Baso % (Auto) 0.5 (0.0-1.0) % Sodium 139 (135-145) mmol/L Potassium 3.9 (3.6-5.0) mmol/L Chloride 109 (101-111) mmol/L Carbon Dioxide 24.0 (21.0-31.0) mmol/L Anion Gap 9.9 BUN 15 (7-18) mg/dL Creatinine 0.7 (0.6-1.3) mg/dL Est Cr Clr Drug Dosing 70.98 mL/min Estimated GFR (MDRD) > 60 BUN/Creatinine Ratio 21.42 Glucose 114 H (74-105) mg/dL Lactic Acid 0.6 (0.5-2.2) mmol/L Calcium 9.1 (8.4-10.2) mg/dl Magnesium 2.0 (1.8-2.5) mg/dL Total Bilirubin 0.4 (0.2-1.0) mg/dL AST 22 (10-42) IU/L ALT 29 (10-60) IU/L Alkaline Phosphatase 79 (42-121) IU/L Troponin I < 0.02 (0.00-0.02) ng/ml B-Natriuretic Peptide 21 (0-100) pg/ml Total Protein 6.7 (6.7-8.2) g/dl Albumin 4.2 (3.2-5.5) g/dl Globulin 2.5 Albumin/Globulin Ratio 1.68 Meds: Medications Discontinued Medications Generic Name Dose Route Start Last Admin Trade Name Freq PRN Reason Stop Dose Admin Albuterol/Ipratropium 3 ml 07/09/17 19:02 07/09/17 19:21 Duoneb 3.0-0.5 Mg/3 Ml NEB 07/09/17 19:03 3 ml ONETIME ONE Administration Methylprednisolone Sodium Succinate 125 mg 07/09/17 19:02 07/09/17 19:32 Solu-Medrol IVPUSH 07/09/17 19:03 125 mg ONETIME ONE Administration - Radiology Interpretation Free Text/Narrative:: CXR no infiltrate - Re-Assessments/Exams Free Text/Narrative Re-Assessment/Exam: 07/09/17 20:03 Improved airexchange and decrease in wheeze following neb. Departure - Departure Time of Disposition: 19:59 Disposition: Home, Self-Care 01 Condition: Good Clinical Impression: Bilateral otitis media with effusion COPD (chronic obstructive pulmonary disease) Qualifiers: COPD type: COPD with acute exacerbation Qualified Code(s): J44.1 - Chronic obstructive pulmonary disease with (acute) exacerbation - Discharge Information Instructions: Chronic Obstructive Pulmonary Disease Exacerbation, [id number] Forms: ED Department Discharge Additional Instructions: Albuterol Neb every 4 hours as needed prednisone 40mg x 3 days, 30 x 3 days 20mg x 3 days 10mg x 3 days azithromycin 500mg today, 250 daily x 4 days fluids follow up if symptoms worsen tesselon pearles 200mg every 8 hours as needed for cough #34 - My Orders Last 24 Hours: My Active Orders 07/09/17 19:02 RT Aerosol Therapy [RC] ASDIRECTED 07/09/17 19:03 EKG Documentation Completion [RC] URGENT - Assessment/Plan Last 24 Hours: My Active Orders 07/09/17 19:02 RT Aerosol Therapy [RC] ASDIRECTED 07/09/17 19:03 EKG Documentation Completion [RC] URGENT
[2017-07-09] MEDS: Albuterol/Ipratropium 3.0-0.5 MG/3 ML Neb Soln NEB ONE (19:21)
[2017-07-09 19:31] LABS: CHLORIDE,CL 109 mmol/L (101-111); SODIUM,NA 139 mmol/L (135-145)
[2017-07-09] MEDS: methylPREDNISolone Sodium Succinate 125 MG/2 ML SDV IVPUSH ONE (19:32)
[2017-07-09 20:15] VITALS: BP 136/47
[2017-07-09] MEDS: Benzonatate 100 MG Cap ONE (20:16)
[2017-07-09] MEDS: Azithromycin 250 MG Tab ONE (20:16)
[2017-07-09] MEDS: predniSONE 20 MG Tab ONE (20:16)
== END 2017-07-09 20:12 | disposition home or self-care (01) ==
LOC: DL.ED 18:39
DX: H65.93 Unspecified nonsuppurative otitis media, bilateral (principal); J44.1 Chronic obstructive pulmonary disease with (acute) exacerbation; K21.9 Gastro-esophageal reflux disease without esophagitis; E03.9 Hypothyroidism, unspecified; Z88.8 Allergy status to other drugs, medicaments and biological substances; Z88.5 Allergy status to narcotic agent; Z79.899 Other long term (current) drug therapy; Z79.82 Long term (current) use of aspirin
CPT/HCPCS: 36415; 71046; 80053; 83605; 83735; 83880; 84484; 85025; 93005; 94640; 96374; 99285; A9270-GY; J2930

== ENCOUNTER 2017-10-31 07:32 | Day surgery (SDC) | payer MEDICAID ==
[~2017-10-31 07:32] MED LIST: Dextrose 5%-0.45% NaCl 1,000 ML IV SCH; Midazolam 1 MG/ML 2 ML SDV ONE; Sodium Chloride 0.9% 10 ML Syringe FLUSH PRN; fentaNYL 100 MCG/2 ML SDV ONE
[2017-10-31] MEDS ORDERED: fentaNYL 100 MCG/2 ML SDV IV ONE ×4 (07:33→08:28)
[2017-10-31] MEDS ORDERED: Midazolam 1 MG/ML 2 ML SDV IV ONE ×7 (07:33→08:24)
--- NOTE | 2017-10-31 13:43 | OR ---
DATE: 10/31/2017 PROCEDURE: Total colonoscopy. INSTRUMENT USED: CF-H180 AL Olympus video colonoscope. PREMEDICATIONS: Fentanyl 125 mcg intravenous, Versed 4 mg intravenous. The procedure was done under pulse oximetry, BP recording, and manager cardiac. INDICATION: The patient with progressive constipation and rectal bleeding, unexplained, not responsive to medical measures. Colonoscopic examination is done for detection of any polypoid lesions and removal, endoscopic hemostasis therapy if needed. DESCRIPTION OF PROCEDURE: Initial rectal exam was unremarkable. Rigid anoscopy showed small internal hemorrhoids without bleeding from them. The colonoscope was passed with ease. Scattered diverticula were noted in the distal left colon along with deformity. The scope was passed with ease up to the ileocecal area. Photographs were of normal-appearing cecum identified by double-bulged ileocecal folds. No bleeding was noted from any of the visualized areas at the commencement of the examination. There was moderate amount of fecal material that had to be aspirated clear. No stricture no vascular ectasia. No large isolated ulcerations seen. No evidence of diffuse inflammatory bowel disease in the form of friability, contact bleeding, or ulcerations. No polyp or tumor mass identified. Probing the proximal sides of folds and flexures, using adequate distention and clearing up the stool material, withdrawal of the scope was made. Cecum to rectum time over 6 minutes. No bleeding was noted from any of the visualized areas at the completion of examination. IMPRESSION: 1. Internal hemorrhoids. 2. Diverticulosis. The patient tolerated the procedure well. [facility] /[id number]
[2017-10-31 14:29] VITALS: BP 113/56
== END 2017-10-31 10:40 | disposition home or self-care (01) ==
LOC: DL.ENDO 07:32
PROVIDERS: ATTEND Internal Medicine Gastroenterology
DX: K59.00 Constipation, unspecified (principal); K62.5 Hemorrhage of anus and rectum; K64.8 Other hemorrhoids; K57.30 Diverticulosis of large intestine without perforation or abscess without bleeding; D50.9 Iron deficiency anemia, unspecified; E03.9 Hypothyroidism, unspecified; F41.1 Generalized anxiety disorder; E66.09 Other obesity due to excess calories; Z68.36 Body mass index [BMI] 36.0-36.9, adult; Z88.1 Allergy status to other antibiotic agents; Z88.5 Allergy status to narcotic agent; Z88.8 Allergy status to other drugs, medicaments and biological substances; Z90.49 Acquired absence of other specified parts of digestive tract; Z87.19 Personal history of other diseases of the digestive system
CPT/HCPCS: J2250; J3010; J7042

== ENCOUNTER 2018-03-24 11:09 | Emergency (ER) | payer MEDICAID ==
[2018-03-24 11:17] VITALS: BP 125/71
[2018-03-24] MEDS ORDERED: Albuterol/Ipratropium 3.0-0.5 MG/3 ML Neb Soln NEB ONE (11:34)
--- NOTE | 2018-03-24 11:35 | EDM.PDOC ---
ED HPI GENERAL MEDICAL PROBLEM - General Chief Complaint: Respiratory Problem Stated Complaint: TROUBLE BREATHING, COPD Time Seen by Provider: 03/24/18 11:25 Source of Information: Reports: Patient History Limitations: Reports: No Limitations - History of Present Illness INITIAL COMMENTS - FREE TEXT/NARRATIVE: This 57 yo female patient reports to the ED with a 2 day history of increased shortness of breath and a sore throat. The patient reports she has been using her nebulizer treatments, but they have not been helping. The patient reports she attempted to get into the Clinic today, but was advised that there were no appointments available. Duration: Day(s): (2), Constant, Getting Worse Location: Reports: Neck, Chest Quality: Reports: Other Severity: Severe Improves with: Reports: None Worsens with: Reports: None Associated Symptoms: Reports: Shortness of Breath Middle Chest Pain Score (Numeric/FACES): 5 - Related Data Allergies Allergy/AdvReac Type Severity Reaction Status Date / Time cephalexin monohydrate Allergy Rash Verified 03/24/18 11:18 [From Keflex] codeine Allergy Hives Verified 03/24/18 11:18 hydroxyzine Allergy Cannot Verified 03/24/18 11:18 Remember pantoprazole [From Protonix] Allergy Tremors Verified 03/24/18 11:18 propoxyphene napsylate Allergy Cannot Verified 03/24/18 11:18 [From Darvocet-N] Remember ondansetron AdvReac Intermediate Other Verified 03/24/18 11:18 Home Meds: Home Meds Montelukast [Singulair] 10 mg PO DAILY 08/23/13 [History] Levothyroxine 75 mcg PO DAILY 10/12/13 [History] Mometasone/Formoterol [Dulera 200 MCG/5 MCG] 2 puff INH BID 12/09/14 [History] Albuterol/Ipratropium [DuoNeb 3.0-0.5 MG/3 ML] 3 ml NEB Q6HRRT neb 01/14/15 [Rx ] Albuterol Sulfate [Proventil Hfa] 6.7 gm IH Q6HR PRN 05/15/15 [History] Benzonatate [Tessalon Perles] 200 mg PO TID PRN 05/15/15 [History] Diclofenac Sodium [Voltaren 1% Gel] 1 applic TOP ASDIRECTED 01/26/17 [History] Fluticasone Propionate [Flonase Allergy Relief] 1 - 2 spray NASBOTH ASDIRECTED 01/26/17 [History] atorvaSTATin [Lipitor] 20 mg PO DAILY 01/26/17 [History] Omeprazole 20 mg PO BIDAC 01/27/17 [History] DULoxetine HCl [Cymbalta] 30 mg PO DAILY 10/28/17 [History] Nitroglycerin [Nitrostat] 0.4 mg PO ASDIRECTED 10/28/17 [History] Past Medical History HEENT History: Reports: Allergic Rhinitis, Impaired Vision Other HEENT History: wears glasses but not her at this time Cardiovascular History: Reports: High Cholesterol, PA Other Cardiovascular History: 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 Respiratory History: Reports: Asthma, COPD Gastrointestinal History: Reports: Cholelithiasis, Chronic Constipation, Chronic Diarrhea, GERD, Hiatal Hernia, Other (See Below) Other Gastrointestinal History: S/P GASTRIC EROSIONS Genitourinary History: Reports: None FERMENTER WINE History: Reports: Other FERMENTER WINE History: 4 nvd Musculoskeletal History: Reports: Arthritis, Fracture, Other (See Below) Other Musculoskeletal History: foot Neurological History: Reports: None Psychiatric History: Reports: Anxiety Endocrine/Metabolic History: Reports: Hypothyroidism, Obesity/BMI 30+ Hematologic History: Reports: Blood Transfusion(s), Iron Deficiency Immunologic History: Reports: None Oncologic (Cancer) History: Reports: None Dermatologic History: Reports: None - Infectious Disease History Infectious Disease History: Reports: Chicken Pox, Measles - Past Surgical History Head Surgeries/Procedures: Reports: None HEENT Surgical History: Reports: Adenoidectomy, Tonsillectomy Cardiovascular Surgical History: Reports: None Respiratory Surgical History: Reports: None GI Surgical History: Reports: Bariatric Procedure, Cholecystectomy, EGD, Hernia Repair/Other, Fernando Fundoplication, Other (See Below) Other GI Surgeries/Procedures: laser surgery on gallbladder. S/P GASTRECTOMY Female Surgical History: Reports: Hysterectomy Endocrine Surgical History: Reports: None Neurological Surgical History: Reports: None Musculoskeletal Surgical History: Reports: Other (See Below) Other Musculoskeletal Surgeries/Procedures:: SCREW LEFT BUNION REPAIR Oncologic Surgical History: Reports: None Dermatological Surgical History: Reports: None Social & Family History - Family History Family Medical History: Noncontributory Cardiac: Reports: CAD, Heart Failure, High Cholesterol, Hypertension, PA Respiratory: Reports: Asthma, COPD GI: Reports: GERD : Reports: Renal Disease/Insufficiency Musculoskeletal: Reports: Arthritis, Back pain, Chronic Neurological: Reports: CVA Endocrine/Metabolic: Reports: Diabetes, type II, Obesity/MBI 30+ Oncologic: Reports: Other (See Below) Other Oncologic Family History: MOTHER HAD STOMACH CA. - Tobacco Use Smoking Status *Q: Former Smoker Used Tobacco, but Quit: Yes Month/Year Tobacco Last Used: ? - Caffeine Use Caffeine Use: Reports: Coffee Other Caffeine Use: COFFEE AVERAGE OF 6 CUPS DAILY - Recreational Drug Use Recreational Drug Use: No - Living Situation & Occupation Living situation: Reports: with Family Occupation: Unemployed ED ROS GENERAL - Review of Systems Review Of Systems: ROS reveals no pertinent complaints other than HPI. ED EXAM, GENERAL - Physical Exam Exam: See Below Exam Limited By: No Limitations General Appearance: Alert, WD/WN, Moderate Distress Eye Exam: Bilateral Eye: EOMI, Normal Inspection, PERRL Ears: Normal External Exam, Normal Canal, Hearing Grossly Normal, Normal TMs Nose: Normal Inspection, Normal Mucosa, No Blood Throat/Mouth: Normal Oropharynx, Normal Voice, No Airway Compromise, Inflammation (posterior pharynx) Head: Atraumatic, Normocephalic Respiratory/Chest: Rhonchi (diffuse), Wheezing (diffuse) Cardiovascular: Normal Peripheral Pulses, Regular Rate, Rhythm, No Edema, No Gallop, No JVD, No Murmur, No Rub GI/Abdominal: Normal Bowel Sounds, Soft, Non-Tender, No Organomegaly, No Distention, No Abnormal Bruit, No Mass (Female) Exam: Deferred Rectal (Female) Exam: Deferred Back Exam: Normal Inspection, Full Range of Motion, NT Extremities: Normal Inspection, Normal Range of Motion, Non-Tender, Normal Capillary Refill, No Pedal Edema Neurological: Alert, Oriented, CN II-XII Intact, Normal Cognition, Normal Gait, Normal Reflexes, No Motor/Sensory Deficits Psychiatric: Normal Affect, Normal Mood Skin Exam: Warm, Dry, Intact, Normal Color, No Rash Lymphatic: No Adenopathy Course - Vital Signs Last Recorded V/S: Last Vital Signs Temp 36.4 C 03/24/18 11:14 Pulse 67 03/24/18 11:52 Resp 24 H 03/24/18 11:14 BP 125/71 03/24/18 11:14 Pulse Ox 92 L 03/24/18 11:14 - Orders/Labs/Meds Orders: Active Orders 24 hr Category Date Time Status EKG Documentation Completion [RC] URGENT Care 03/24/18 11:22 Active RT Aerosol Therapy [RC] ASDIRECTED Care 03/24/18 11:34 Active CULTURE STREP A CONFIRMATION [] Stat Lab 03/24/18 11:40 Results STREP SCRN A RAPID W CULT CONF [] Stat Lab 03/24/18 11:40 Results Levofloxacin/Dextrose 5%-Water [Levaquin in D5W 750 MG/ Med 03/24/18 12:33 Ordered 150 ML] 750 mg Premix Bag 1 bag IV ONETIME Medication Orders Levofloxacin/Dextrose 750 mg/ (Premix) 150 mls @ 100 mls/hr IV ONETIME ONE Stop: 03/24/18 14:02 Labs: Laboratory Tests 03/24/18 03/24/18 Range/Units 11:38 11:38 WBC 6.2 (5.0-10.0) 10^3/uL RBC 4.72 (4.2-5.4) 10^6/uL Hgb 13.4 (12.0-16.0) g/dL Hct 41.7 (37.0-47.0) % MCV 88.3 (80-100) fL MCH 28.4 (27.0-34.0) pg MCHC 32.1 L (33.0-35.0) g/dL Plt Count 256 (150-450) 10^3/uL Neut % (Auto) 59.9 (42.2-75.2) % Lymph % (Auto) 19.0 L (20.5-50.1) % [place] % (Auto) 5.3 (2-8) % Eos % (Auto) 15.2 H (1.0-3.0) % Baso % (Auto) 0.6 (0.0-1.0) % Sodium 138 (135-145) mmol/L Potassium 3.6 (3.6-5.0) mmol/L Chloride 105 (101-111) mmol/L Carbon Dioxide 22.0 (21.0-31.0) mmol/L Anion Gap 14.6 BUN 19 H (7-18) mg/dL Creatinine 0.6 (0.6-1.3) mg/dL Est Cr Clr Drug Dosing 81.82 mL/min Estimated GFR (MDRD) > 60 BUN/Creatinine Ratio 31.66 Glucose 93 (74-105) mg/dL Calcium 9.0 (8.4-10.2) mg/dl Total Bilirubin 0.7 (0.2-1.0) mg/dL AST 25 (10-42) IU/L ALT 27 (10-60) IU/L Alkaline Phosphatase 86 (42-121) IU/L Troponin I < 0.02 (0.00-0.02) ng/ml Total Protein 7.0 (6.7-8.2) g/dl Albumin 4.2 (3.2-5.5) g/dl Globulin 2.8 Albumin/Globulin Ratio 1.50 Meds: Medications Generic Name Dose Route Start Last Admin Trade Name Freq PRN Reason Stop Dose Admin Levofloxacin/Dextrose 750 mg/ 150 mls @ 100 mls/hr 03/24/18 12:33 Premix IV 03/24/18 14:02 ONETIME ONE Discontinued Medications Generic Name Dose Route Start Last Admin Trade Name Freq PRN Reason Stop Dose Admin Albuterol/Ipratropium 3 ml 03/24/18 11:34 03/24/18 11:52 Duoneb 3.0-0.5 Mg/3 Ml NEB 03/24/18 11:35 3 ml ONETIME ONE Administration Methylprednisolone Sodium Succinate 125 mg 03/24/18 12:02 03/24/18 12:14 Solu-Medrol IVPUSH 03/24/18 12:03 125 mg ONETIME ONE Administration Departure - Departure Time of Disposition: 12:38 Disposition: Home, Self-Care 01 Condition: Fair Clinical Impression: COPD exacerbation, Bronchitis - Discharge Information *PRESCRIPTION DRUG MONITORING PROGRAM REVIEWED*: Not Applicable *COPY OF PRESCRIPTION DRUG MONITORING REPORT IN PATIENT FRANCO: Not Applicable Instructions: Chronic Obstructive Pulmonary Disease Exacerbation, [id number] , Acute Bronchitis, Adult, [id number] Forms: ED Department Discharge Care Plan Goals: The patient was advised of the examination, lab, EKG and x-ray results during the visit. The patient was given a nebulizer treatment, an IV dose of Levaquin and an IV dose of SoluMedrol while in the ED. The patient was discharged with a script for Levaquin (500 mg) to take 1 by mouth daily for 5 days (starting ) and Prednisone (20 mg) #10 to take 2 by mouth daily (starting 03/25/18). If the patient has any additional symptoms or concerns, the patient should follow- up with her primary care facility or return to the emergency department. - My Orders Last 24 Hours: My Active Orders 03/24/18 11:22 EKG Documentation Completion [RC] URGENT 03/24/18 11:34 RT Aerosol Therapy [RC] ASDIRECTED 03/24/18 11:40 CULTURE STREP A CONFIRMATION [RM] Stat STREP SCRN A RAPID W CULT CONF [RM] Stat 03/24/18 12:33 Levofloxacin/Dextrose 5%-Water [Levaquin in D5W 750 MG/150 ML] 750 mg Premix Bag 1 bag IV ONETIME - Assessment/Plan Last 24 Hours: My Active Orders 03/24/18 11:22 EKG Documentation Completion [RC] URGENT 03/24/18 11:34 RT Aerosol Therapy [RC] ASDIRECTED 03/24/18 11:40 CULTURE STREP A CONFIRMATION [RM] Stat STREP SCRN A RAPID W CULT CONF [RM] Stat 03/24/18 12:33 Levofloxacin/Dextrose 5%-Water [Levaquin in D5W 750 MG/150 ML] 750 mg Premix Bag 1 bag IV ONETIME
--- NOTE | 2018-03-24 11:43 | CR ---
Clinical history: 57-year-old female with chest pain and shortness of breath. Interpretation: Huge air-filled hiatus hernia filling the middle mediastinum with some underlying left lower lobe atelectasis unchanged in appearance since 30 December 2017. Normal cardiac silhouette. No alveolar edema or dependent effusion. No lung mass, hilar lymphadenopathy or focal lobar pneumonia.
[2018-03-24] MEDS ORDERED: methylPREDNISolone Sodium Succinate 125 MG/2 ML SDV IVPUSH ONE (12:02)
[2018-03-24 12:05] LABS: ANION GAP 14.6; CHLORIDE,CL 105 mmol/L (101-111); SODIUM,NA 138 mmol/L (135-145)
[2018-03-24] MEDS ORDERED: Levofloxacin/Dextrose 5%-Water 750 MG in Premix Bag 1 BAG IV ONE (12:33)
== END 2018-03-24 14:04 | disposition home or self-care (01) ==
LOC: DL.ED 11:09
DX: J44.1 Chronic obstructive pulmonary disease with (acute) exacerbation (principal); I25.2 Old myocardial infarction; Z88.8 Allergy status to other drugs, medicaments and biological substances; Z88.5 Allergy status to narcotic agent; Z79.899 Other long term (current) drug therapy; Z87.891 Personal history of nicotine dependence
CPT/HCPCS: 36415; 71045; 80053; 84484; 85025; 87081; 87430; 93005; 94640; 96365; 96375; 99285; J1956; J2930; J7620-GY

== ENCOUNTER 2018-03-30 09:11 | Day surgery (SDC) | payer MEDICAID ==
[~2018-03-30 09:11] MED LIST changes: +Clindamycin Phosphate 600 MG in Dextrose 5% in Water 50 ML IV ONE; -Dextrose 5%-0.45% NaCl 1,000 ML IV SCH; -Midazolam 1 MG/ML 2 ML SDV ONE; -fentaNYL 100 MCG/2 ML SDV ONE
[2018-03-30] MEDS ORDERED: Lidocaine 1% 30 ML SDV INJECT ONE ×4 (09:12→15:31)
[2018-03-30] MEDS ORDERED: Bupivacaine 0.5% 30 ML SDV INJECT ONE ×4 (09:12→15:31)
[2018-03-30] MEDS ORDERED: fentaNYL 100 MCG/2 ML SDV IV ONE (09:12)
[2018-03-30] MEDS ORDERED: Midazolam 1 MG/ML 2 ML SDV IV ONE (09:12)
[2018-03-30] MEDS ORDERED: Dexamethasone 4 MG/ML SDV IV ONE (09:12)
[2018-03-30] MEDS ORDERED: PROPOFOL IV ONE (09:12)
[2018-03-30] MEDS ORDERED: Lactated Ringers 1,000 ML IV SCH (10:05)
[2018-03-30] MEDS ORDERED: Bupivacaine 0.5% 30 ML SDV ONE (12:27)
[2018-03-30] MEDS ORDERED: Lidocaine 1% 30 ML SDV ONE (12:27)
[2018-03-30] MEDS ORDERED: Acetaminophen/oxyCODONE 325-5 MG Tab PO PRN (15:41)
--- NOTE | 2018-03-30 15:44 | PCM.OPNOTE ---
- General Post-Op/Procedure Note Date of Surgery/Procedure: 03/30/18 Operative Procedure(s): right foot 1st metatarsal bunionectomy/osteotomy, 5th metatarsal osteotomy/bunionectomy Pre Op Diagnosis: right foot painful bunion and tailors bunion Post-Op Diagnosis: aaliyah Anesthesia Technique: Local, MAC Primary Surgeon: Macarena Quiroz Anesthesia Provider: Dhruv Samson EBL in mLs: 10 Complications: none Condition: Good Free Text/Narrative:: Intake & Output 03/30/18 03/30/18 03/30/18 06:59 14:59 22:59 Intake Total 50 Balance 50 Pt tolerated procedure well and was transported to recovery with vascular status intact to right foot. Pike 3.0 and 2.0 cannulated screws placed. Well padded compression dressing applied.
[2018-03-30 16:45] VITALS: BP 105/64
--- NOTE | 2018-03-31 11:37 | OR ---
DATE: 03/30/2018 PREOPERATIVE DIAGNOSES: 1. Right foot painful bunion. 2. Right foot tailor bunion. POSTOPERATIVE DIAGNOSES: 1. Right foot painful bunion. 2. Right foot tailor bunion. PROCEDURES PERFORMED: 1. Right foot first metatarsal osteotomy/bunionectomy. 2. Right foot fifth metatarsal osteotomy/bunionectomy. ANESTHESIA: Local MAC with preoperative local block of 10 mL 1:1 mixture of 1% lidocaine plain and 0.5% Marcaine plain. TOURNIQUET TIME: Pneumatic ankle tourniquet, 108 minutes. ESTIMATED BLOOD LOSS: Minimal. SPECIMEN: None. COMPLICATIONS: None. INDICATIONS: Molly is a 57-year-old female who was referred by her [facility] rod puller and coiler for a surgical consult for painful bunions on the right foot. I have seen her in the past for different issues. She states that she is having pain localized to the bunions on the inside and outside of the right foot. She did have surgery on her left foot which was a bunionectomy performed approximately 10 years ago when she was living in [place]. She states that Dr. Osborne at [facility] has been treating her for her bunions. She has tried different shoes, padding, and inserts with no relief. She would want to set up surgery for this. She is having pain whenever she is standing or walking to both of those areas. X-rays from [facility] reveal 3 views of the right foot, show medially deviated first metatarsal with intermetatarsal angle of approximately 15 degrees, 4 or 5; intermetatarsal angle of 12 degrees; no signs of fracture. The patient voiced good understanding of the proposed procedure and possible complications like surgery at this time. DESCRIPTION OF PROCEDURE: The patient was taken to the operating room lying in supine position. After adequate anesthesia induction as described above, the right foot was prepped and draped in the usual sterile fashion. A pneumatic ankle tourniquet was inflated to 225 mmHg. Attention was first directed to the dorsal aspect of the first MTPJ, where an approximately 6 cm linear incision was made. Sharp and blunt dissection was performed down to the level of the joint capsule with care to gently retract all neurovascular bundles. Blunt dissection was made in the first interspace to the level of the fibular sesamoid, and the adductor tendon was transected. A lateral release was performed. An inverted capsulotomy was then made at the first metatarsophalangeal joint, and the capsule was reflected to expose the distal first metatarsal. Hypertrophy of the medial eminence of the first metatarsal head was noted at this time and resected with a sagittal saw. Inspection of the first metatarsophalangeal joint revealed that there was a small area of denuded cartilage at the center plantar aspect which was drilled with a 0.062 inch K-wire. The rest of the cartilage was healthy in appearance. A sagittal saw was then used to make an osteotomy that was parallel to the weightbearing surface and then second one that was perpendicular to that plantar osteotomy. The capital fragment was then shifted laterally approximately 6 mm and impacted on the first metatarsal shaft. A 3.0 Christina cannulated screw was then placed across the osteotomy site and was noted to have good fixation. The osteotomy site was noted to be stable with varus, valgus, and axial forces applied. The hallux was noted to be in straight rectus alignment at this time. A medial capsulorrhaphy was performed. The area was irrigated with copious amounts of sterile saline; and capsular closure was completed with 3-0 Vicryl, skin closure was completed with 4-0 nylon. The hallux was noted to be in rectus alignment with fluid range of motion of the joint. Fluoroscopy was used throughout the procedure to verify adequate reduction of the deformity and proper placement of the screw fixation. It was also noted that I was able to see at the joint if any screw was prominent, and there was no screw prominent through the cartilage of the first MTPJ after screw was placed. Attention was then directed to the fifth metatarsal, where an approximately 5 cm linear incision was made over the fifth metatarsophalangeal joint. Sharp and blunt dissection was performed down to the level of the joint capsule. A linear capsulotomy was made, and the capsule was reflected to expose the distal fifth metatarsal. A chevron-type osteotomy with a long plantar arm was then performed with a sagittal saw, and the capital fragment was transposed approximately 3 mm. Temporary fixation with the K-wires from the screw set was placed. A 3.0 cannulated screw and a 2.0 cannulated screw were then placed across the osteotomy site. I was able to see that there were no prominent screws at the plantar aspect. The temporary fixation was removed. The area was noted to be stable with all force applied. The sagittal saw was used to remove the lateral eminence. The area was then irrigated with copious amounts of sterile saline. Capsular closure was completed with 3-0 Vicryl, and skin closure was completed with 4-0 nylon. Fluoroscopy was then again used throughout this procedure to verify adequate reduction of deformity and proper screw fixation. The areas were then dressed with Xeroform to the incision site, fluffs, Webril, and Carlos wrap. She was placed on weightbearing with a Cam boot. She tolerated anesthesia well and was transported to the recovery room with vital signs stable and vascular status intact to the right foot as noted by immediate hyperemia upon deflation of the ankle tourniquet. She was then discharged home when she met hospital discharge requirements. [facility] /[id number]
== END 2018-03-30 16:50 | disposition home or self-care (01) ==
LOC: DL.SDS 09:11
PROVIDERS: ATTEND Podiatrist
DX: M21.621 Bunionette of right foot (principal); M21.611 Bunion of right foot; J44.9 Chronic obstructive pulmonary disease, unspecified; Z87.891 Personal history of nicotine dependence; Z79.899 Other long term (current) drug therapy; Z88.5 Allergy status to narcotic agent
CPT/HCPCS: 28110; 28296; 93005; J1100; J2001; J2250; J2704; J3010; J3490; J7050; J7120; 76000; C1713

== ENCOUNTER 2018-04-10 21:13 | Emergency (ER) | payer MEDICAID ==
[2018-04-10 21:29] VITALS: BP 142/68
--- NOTE | 2018-04-10 22:08 | EDM.PDOC ---
ED HPI GENERAL MEDICAL PROBLEM - General Chief Complaint: Lower Extremity Injury/Pain Stated Complaint: FOOT KEEPS BLEEDING,HAD STICTCHES REMD [id number] Time Seen by Provider: 04/10/18 21:20 Source of Information: Reports: Patient History Limitations: Reports: No Limitations - History of Present Illness INITIAL COMMENTS - FREE TEXT/NARRATIVE: ED with c/o right foot bleeding , Recent bunionectomy to right great toe. Sutures removed per prodiatry, Tonight wound opened while cooking supper. Admits more weight on it than has been.Stated wearing post op shoe. Recently seen by podiatry. No drainage from wound. No hx MRSA. No increase in pain. Right Feet Pain Score (Numeric/FACES): 2 - Related Data Allergies Allergy/AdvReac Type Severity Reaction Status Date / Time cephalexin monohydrate Allergy Rash Verified 04/10/18 21:32 [From Keflex] codeine Allergy Hives Verified 04/10/18 21:32 hydroxyzine Allergy Cannot Verified 04/10/18 21:32 Remember pantoprazole [From Protonix] Allergy Tremors Verified 04/10/18 21:32 propoxyphene napsylate Allergy Cannot Verified 04/10/18 21:32 [From Darvocet-N] Remember ondansetron AdvReac Intermediate Other Verified 04/10/18 21:32 Home Meds: Home Meds Montelukast [Singulair] 10 mg PO DAILY 08/23/13 [History] Levothyroxine 75 mcg PO DAILY 10/12/13 [History] Mometasone/Formoterol [Dulera 200 MCG/5 MCG] 2 puff INH BID 12/09/14 [History] Albuterol Sulfate [Proventil Hfa] 2 puff IH Q6HR PRN 05/15/15 [History] Benzonatate [Tessalon Perles] 200 mg PO TID PRN 05/15/15 [History] Diclofenac Sodium [Voltaren 1% Gel] 1 applic TOP ASDIRECTED 01/26/17 [History] Fluticasone Propionate [Flonase Allergy Relief] 1 - 2 spray NASBOTH ASDIRECTED 01/26/17 [History] atorvaSTATin [Lipitor] 20 mg PO DAILY 01/26/17 [History] Omeprazole 20 mg PO BIDAC 01/27/17 [History] DULoxetine HCl [Cymbalta] 30 mg PO DAILY 10/28/17 [History] Nitroglycerin [Nitrostat] 0.4 mg PO ASDIRECTED 10/28/17 [History] Albuterol/Ipratropium [DuoNeb 3.0-0.5 MG/3 ML] 3 ml NEB BID PRN 03/29/18 [ History] Docusate Sodium [Colace] 50 mg PO BID PRN 03/29/18 [History] Past Medical History HEENT History: Reports: Allergic Rhinitis, Impaired Vision, Sinusitis Other HEENT History: wears glasses but not her at this time Cardiovascular History: Reports: High Cholesterol, [place] Other Cardiovascular History: HX OF CHEST PAIN AT REST, Last used Nitro 2-3 months ago Respiratory History: Reports: Asthma, COPD Gastrointestinal History: Reports: GERD, Hiatal Hernia Other Gastrointestinal History: S/P GASTRIC EROSIONS Genitourinary History: Reports: None 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: 4 nvd Musculoskeletal History: Reports: Arthritis, Fracture, Other (See Below) Other Musculoskeletal History: foot Neurological History: Reports: None Psychiatric History: Reports: Anxiety Endocrine/Metabolic History: Reports: Hypothyroidism, Obesity/BMI 30+ Hematologic History: Reports: Blood Transfusion(s), Iron Deficiency Immunologic History: Reports: None Oncologic (Cancer) History: Reports: None Dermatologic History: Reports: None - Infectious Disease History Infectious Disease History: Reports: Chicken Pox, Measles - Past Surgical History Head Surgeries/Procedures: Reports: None HEENT Surgical History: Reports: Adenoidectomy, Tonsillectomy Respiratory Surgical History: Reports: None GI Surgical History: Reports: Bariatric Procedure, Cholecystectomy, EGD, Hernia Repair/Other, Fernando Fundoplication, Other (See Below) Other GI Surgeries/Procedures: laser surgery on gallbladder. S/P GASTRECTOMY Female Surgical History: Reports: Hysterectomy Endocrine Surgical History: Reports: None Neurological Surgical History: Reports: None Other Musculoskeletal Surgeries/Procedures:: SCREW LEFT BUNION REPAIR. Screw right Bunion repair Oncologic Surgical History: Reports: None Dermatological Surgical History: Reports: None Social & Family History - Family History Family Medical History: Noncontributory Cardiac: Reports: CAD, Heart Failure, High Cholesterol, Hypertension, [place] Respiratory: Reports: Asthma, COPD GI: Reports: GERD : Reports: Renal Disease/Insufficiency Musculoskeletal: Reports: Arthritis, Back pain, Chronic Neurological: Reports: CVA Endocrine/Metabolic: Reports: Diabetes, type II, Obesity/MBI 30+ Oncologic: Reports: Other (See Below) Other Oncologic Family History: MOTHER HAD STOMACH CA. - Tobacco Use Smoking Status *Q: Current Every Day Smoker Years of Tobacco use: 29 Packs/Tins Daily: 1 - Caffeine Use Caffeine Use: Reports: Coffee Other Caffeine Use: COFFEE AVERAGE OF 6 CUPS DAILY - Recreational Drug Use Recreational Drug Use: No - Living Situation & Occupation Living situation: Reports: with Family Occupation: Unemployed Review of Systems - Review of Systems Review Of Systems: ROS reveals no pertinent complaints other than HPI. ED EXAM, GENERAL - Physical Exam Exam: See Below Exam Limited By: No Limitations General Appearance: Alert, No Apparent Distress Eye Exam: Bilateral Eye: EOMI, PERRL Ears: Normal External Exam, Hearing Grossly Normal Nose: Normal Inspection Throat/Mouth: Normal Inspection, Normal Lips Head: Atraumatic, Normocephalic Respiratory/Chest: No Respiratory Distress, Lungs Clear, Normal Breath Sounds Cardiovascular: Normal Peripheral Pulses, Regular Rate, Rhythm Extremities: Normal Range of Motion, Other ( Right anterior adorno, mild erythema , vasculitis type rash, Right great toe wound open) Neurological: Alert, Oriented, Normal Cognition Psychiatric: Normal Affect, Normal Mood Skin Exam: Warm, Dry, Wound/Incision (2-3mm seration of wound right great toe of verticle incision. mild swelling to medial and lateral foot, ) Course - Vital Signs Last Recorded V/S: Last Vital Signs Temp 95.9 F 04/10/18 21:19 Pulse 90 04/10/18 21:19 Resp 19 04/10/18 21:19 BP 142/68 H 04/10/18 21:19 Pulse Ox 95 04/10/18 21:19 Departure - Departure Time of Disposition: 22:05 Disposition: Home, Self-Care 01 Condition: Good Clinical Impression: History of bunionectomy of right great toe Postoperative wound dehiscence Qualifiers: Encounter type: initial encounter Qualified Code(s): T81.31XA - Disruption of external operation (surgical) wound, not elsewhere classified, initial encounter - Discharge Information *PRESCRIPTION DRUG MONITORING PROGRAM REVIEWED*: Not Applicable *COPY OF PRESCRIPTION DRUG MONITORING REPORT IN PATIENT FRANCO: Not Applicable Instructions: Wound Dehiscence, [id number] Forms: ED Department Discharge Additional Instructions: change dressing twice daily keep clean and dry non weight bearing post op boot follow up with Dr Melgar in am to notify regarding suture line opening continue antibiotic as ordered by dr Melgar
== END 2018-04-10 22:11 | disposition home or self-care (01) ==
LOC: DL.ED 21:13
DX: T81.31XA Disruption of external operation (surgical) wound, not elsewhere classified, initial encounter (principal); I25.2 Old myocardial infarction; E03.9 Hypothyroidism, unspecified; E66.9 Obesity, unspecified; F17.210 Nicotine dependence, cigarettes, uncomplicated; Z98.890 Other specified postprocedural states; Z88.1 Allergy status to other antibiotic agents; Z88.5 Allergy status to narcotic agent; Z79.899 Other long term (current) drug therapy; Z98.84 Bariatric surgery status; Z90.49 Acquired absence of other specified parts of digestive tract; Z90.710 Acquired absence of both cervix and uterus
CPT/HCPCS: 99282

== ENCOUNTER 2018-07-05 12:42 | Emergency (ER) | payer MEDICAID ==
[2018-07-05 14:18] VITALS: BP 131/56
[2018-07-05] MEDS ORDERED: Diphtheria,Pertussis(Acell),Tetanus Vaccine 0.5 ML SDV IM ONE (14:33)
--- NOTE | 2018-07-05 14:33 | EDM.PDOC ---
ED HPI GENERAL MEDICAL PROBLEM - General Chief Complaint: Upper Extremity Injury/Pain Stated Complaint: CUT THUMB [id number] Time Seen by Provider: 07/05/18 14:20 Source of Information: Reports: Patient, RN, RN Notes Reviewed History Limitations: Reports: No Limitations - History of Present Illness INITIAL COMMENTS - FREE TEXT/NARRATIVE: Patient presents to ER with complaint of laceration to left thumb from taking wallpaper off the wall with a paring knife. Onset: Today Duration: Constant Location: Reports: Upper Extremity, Left Quality: Reports: Ache Severity: Mild Improves with: Reports: None Worsens with: Reports: None Associated Symptoms: Reports: No Other Symptoms Left Finger-Thumb Pain Score (Numeric/FACES): 7 - Related Data Allergies Allergy/AdvReac Type Severity Reaction Status Date / Time cephalexin monohydrate Allergy Rash Verified 04/10/18 21:32 [From Keflex] codeine Allergy Hives Verified 04/10/18 21:32 hydroxyzine Allergy Cannot Verified 04/10/18 21:32 Remember pantoprazole [From Protonix] Allergy Tremors Verified 04/10/18 21:32 propoxyphene napsylate Allergy Cannot Verified 04/10/18 21:32 [From Darvocet-N] Remember ondansetron AdvReac Intermediate Other Verified 04/10/18 21:32 Home Meds: Home Meds Montelukast [Singulair] 10 mg PO DAILY 08/23/13 [History] Levothyroxine 75 mcg PO DAILY 10/12/13 [History] Mometasone/Formoterol [Dulera 200 MCG/5 MCG] 2 puff INH BID 12/09/14 [History] Albuterol Sulfate [Proventil Hfa] 2 puff IH Q6HR PRN 05/15/15 [History] Benzonatate [Tessalon Perles] 200 mg PO TID PRN 05/15/15 [History] Diclofenac Sodium [Voltaren 1% Gel] 1 applic TOP ASDIRECTED 01/26/17 [History] Fluticasone Propionate [Flonase Allergy Relief] 1 - 2 spray NASBOTH ASDIRECTED 01/26/17 [History] atorvaSTATin [Lipitor] 20 mg PO DAILY 01/26/17 [History] Omeprazole 20 mg PO BIDAC 01/27/17 [History] DULoxetine HCl [Cymbalta] 30 mg PO DAILY 10/28/17 [History] Nitroglycerin [Nitrostat] 0.4 mg PO ASDIRECTED 10/28/17 [History] Albuterol/Ipratropium [DuoNeb 3.0-0.5 MG/3 ML] 3 ml NEB BID PRN 03/29/18 [ History] Docusate Sodium [Colace] 50 mg PO BID PRN 03/29/18 [History] Past Medical History HEENT History: Reports: Allergic Rhinitis, Impaired Vision, Sinusitis Other HEENT History: wears glasses but not her at this time Cardiovascular History: Reports: High Cholesterol, [place] Other Cardiovascular History: HX OF CHEST PAIN AT REST, Last used Nitro 2-3 months ago Respiratory History: Reports: Asthma, COPD Gastrointestinal History: Reports: GERD, Hiatal Hernia Other Gastrointestinal History: S/P GASTRIC EROSIONS Genitourinary History: Reports: None 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 SHOULDER PUNCHER History: 4 nvd Musculoskeletal History: Reports: Arthritis, Fracture, Other (See Below) Other Musculoskeletal History: foot Neurological History: Reports: None Psychiatric History: Reports: Anxiety Endocrine/Metabolic History: Reports: Hypothyroidism, Obesity/BMI 30+ Hematologic History: Reports: Blood Transfusion(s), Iron Deficiency Immunologic History: Reports: None Oncologic (Cancer) History: Reports: None Dermatologic History: Reports: None - Infectious Disease History Infectious Disease History: Reports: Chicken Pox, Measles - Past Surgical History Head Surgeries/Procedures: Reports: None HEENT Surgical History: Reports: Adenoidectomy, Tonsillectomy Respiratory Surgical History: Reports: None GI Surgical History: Reports: Bariatric Procedure, Cholecystectomy, EGD, Hernia Repair/Other, Fernando Fundoplication, Other (See Below) Other GI Surgeries/Procedures: laser surgery on gallbladder. S/P GASTRECTOMY Female Surgical History: Reports: Hysterectomy Endocrine Surgical History: Reports: None Neurological Surgical History: Reports: None Other Musculoskeletal Surgeries/Procedures:: SCREW LEFT BUNION REPAIR. Screw right Bunion repair Oncologic Surgical History: Reports: None Dermatological Surgical History: Reports: None Social & Family History - Family History Family Medical History: Noncontributory Cardiac: Reports: CAD, Heart Failure, High Cholesterol, Hypertension, [place] Respiratory: Reports: Asthma, COPD GI: Reports: GERD : Reports: Renal Disease/Insufficiency Musculoskeletal: Reports: Arthritis, Back pain, Chronic Neurological: Reports: CVA Endocrine/Metabolic: Reports: Diabetes, type II, Obesity/MBI 30+ Oncologic: Reports: Other (See Below) Other Oncologic Family History: MOTHER HAD STOMACH CA. - Tobacco Use Smoking Status *Q: Never Smoker - Caffeine Use Caffeine Use: Reports: Coffee Other Caffeine Use: COFFEE AVERAGE OF 6 CUPS DAILY - Recreational Drug Use Recreational Drug Use: No - Living Situation & Occupation Living situation: Reports: with Family Occupation: Unemployed Review of Systems - Review of Systems Review Of Systems: ROS reveals no pertinent complaints other than HPI. ED EXAM, GENERAL - Physical Exam Exam: See Below Exam Limited By: No Limitations General Appearance: Alert, WD/WN, No Apparent Distress Eye Exam: Bilateral Eye: EOMI, Normal Inspection, PERRL Ears: Normal External Exam, Normal Canal, Hearing Grossly Normal, Normal TMs Nose: Normal Inspection, Normal Mucosa, No Blood Throat/Mouth: Normal Inspection, Normal Lips, Normal Teeth, Normal Gums, Normal Oropharynx, Normal Voice, No Airway Compromise Head: Atraumatic, Normocephalic Neck: Normal Inspection, Supple, Non-Tender, Full Range of Motion Respiratory/Chest: No Respiratory Distress, Lungs Clear, Normal Breath Sounds, No Accessory Muscle Use, Chest Non-Tender Cardiovascular: Normal Peripheral Pulses, Regular Rate, Rhythm, No Edema, No Gallop, No JVD, No Murmur, No Rub GI/Abdominal: Normal Bowel Sounds, Soft, Non-Tender, No Organomegaly, No Distention, No Abnormal Bruit, No Mass (Female) Exam: Deferred Rectal (Female) Exam: Deferred Back Exam: Normal Inspection, Full Range of Motion, NT Extremities: Normal Inspection, Normal Range of Motion, Non-Tender, Normal Capillary Refill, No Pedal Edema Neurological: Alert, Oriented, CN II-XII Intact, Normal Cognition, Normal Gait, Normal Reflexes, No Motor/Sensory Deficits Psychiatric: Normal Affect, Normal Mood Skin Exam: Other (1cm laceration left thumb tip. ) Lymphatic: No Adenopathy Course - Vital Signs Last Recorded V/S: Last Vital Signs Temp 96.8 F 07/05/18 14:15 Pulse 66 07/05/18 14:15 Resp 16 07/05/18 14:15 BP 131/56 L 07/05/18 14:15 Pulse Ox 96 07/05/18 14:15 - Orders/Labs/Meds Orders: Active Orders 24 hr Category Date Time Status Vaccines to be Administered [RC] PER UNIT ROUTINE Care 07/05/18 14:33 Active Meds: Medications Discontinued Medications Generic Name Dose Route Start Last Admin Trade Name Pedro Luis PRN Reason Stop Dose Admin Diphtheria/Tetanus/Acell Pertussis 0.5 ml 07/05/18 14:33 07/05/18 14:36 Adacel IM 07/05/18 14:34 0.5 ml .ONCE ONE Administration Departure - Departure Time of Disposition: 14:32 Disposition: Home, Self-Care 01 Condition: Good Clinical Impression: Laceration - Discharge Information *PRESCRIPTION DRUG MONITORING PROGRAM REVIEWED*: No *COPY OF PRESCRIPTION DRUG MONITORING REPORT IN PATIENT FRANCO: No Instructions: Laceration Care, Adult, [id number], Stitches, Dawson, or Adhesive Wound Closure, [id number] Forms: ED Department Discharge Additional Instructions: Keep area clean and dry Do not pick at the glue, let it fall off on its own Follow up with your primary care facility if no improvement - My Orders Last 24 Hours: My Active Orders 07/05/18 14:33 Vaccines to be Administered [RC] PER UNIT ROUTINE - Assessment/Plan Last 24 Hours: My Active Orders 07/05/18 14:33 Vaccines to be Administered [RC] PER UNIT ROUTINE
== END 2018-07-05 14:40 | disposition home or self-care (01) ==
LOC: DL.ED 12:42
DX: S61.012A Laceration without foreign body of left thumb without damage to nail, initial encounter (principal); E78.00 Pure hypercholesterolemia, unspecified; I25.2 Old myocardial infarction; J44.9 Chronic obstructive pulmonary disease, unspecified; E03.9 Hypothyroidism, unspecified; F41.9 Anxiety disorder, unspecified; Z23 Encounter for immunization; W26.0XXA Contact with knife, initial encounter; Z88.1 Allergy status to other antibiotic agents; Z88.5 Allergy status to narcotic agent; Z88.8 Allergy status to other drugs, medicaments and biological substances; Z79.899 Other long term (current) drug therapy
CPT/HCPCS: 12001; 90471; 90715; 99283

== ENCOUNTER 2018-07-12 17:48 | Emergency (ER) | payer MEDICAID ==
[2018-07-12] MEDS ORDERED: Albuterol 6.7 GM Inhaler INH ONE ×2 (17:49→19:26)
--- NOTE | 2018-07-12 18:00 | EDM.PDOC ---
<Tree Mcintosh - Last Filed: 07/12/18 18:48> ED HPI GENERAL MEDICAL PROBLEM - General Chief Complaint: Respiratory Problem Stated Complaint: LUNGS, STOMACH AND RIGHT KNEE BOTHERING HER Time Seen by Provider: 07/12/18 18:00 Source of Information: Reports: Patient, Old Records, RN, RN Notes Reviewed History Limitations: Reports: No Limitations - History of Present Illness INITIAL COMMENTS - FREE TEXT/NARRATIVE: Pt presents to ER from home by POV with c/o cough with progressively worsening shortness of breath and wheezing. Pt states she has been coughing so hard that her abdominal hernia has become painful. She denies fever. Admits to chills and some pains in the chest. She continues to smoke. Pt had nebulizer, but has ran out of her Albuterol inhaler. Onset: Gradual Duration: Constant, Getting Worse Location: Reports: Chest, Abdomen Quality: Reports: Ache Severity: Moderate Improves with: Reports: None Worsens with: Reports: None Associated Symptoms: Reports: No Other Symptoms Treatments HATCHERY MAN: Reports: Breathing Treatments Abdominal Pain Score (Numeric/FACES): 7 - Related Data Allergies Allergy/AdvReac Type Severity Reaction Status Date / Time cephalexin monohydrate Allergy Rash Verified 07/12/18 17:59 [From Keflex] codeine Allergy Hives Verified 07/12/18 17:59 hydroxyzine Allergy Cannot Verified 07/12/18 17:59 Remember pantoprazole [From Protonix] Allergy Tremors Verified 07/12/18 17:59 propoxyphene napsylate Allergy Cannot Verified 07/12/18 17:59 [From Darvocet-N] Remember ondansetron AdvReac Intermediate Other Verified 07/12/18 17:59 Home Meds: Home Meds Montelukast [Singulair] 10 mg PO DAILY 08/23/13 [History] Levothyroxine 75 mcg PO DAILY 10/12/13 [History] Mometasone/Formoterol [Dulera 200 MCG/5 MCG] 2 puff INH BID 12/09/14 [History] Albuterol Sulfate [Proventil Hfa] 2 puff IH Q6HR PRN 05/15/15 [History] Benzonatate [Tessalon Perles] 200 mg PO DAILY PRN 05/15/15 [History] Diclofenac Sodium [Voltaren 1% Gel] 1 applic TOP ASDIRECTED 01/26/17 [History] Fluticasone Propionate [Flonase Allergy Relief] 1 - 2 spray NASBOTH ASDIRECTED 01/26/17 [History] atorvaSTATin [Lipitor] 20 mg PO DAILY 01/26/17 [History] Omeprazole 20 mg PO DAILY 01/27/17 [History] DULoxetine HCl [Cymbalta] 30 mg PO DAILY 10/28/17 [History] Nitroglycerin [Nitrostat] 0.4 mg PO ASDIRECTED 10/28/17 [History] Albuterol/Ipratropium [DuoNeb 3.0-0.5 MG/3 ML] 3 ml NEB BID PRN 03/29/18 [ History] Docusate Sodium [Colace] 50 mg PO DAILY PRN 03/29/18 [History] Past Medical History HEENT History: Reports: Allergic Rhinitis, Impaired Vision, Sinusitis Other HEENT History: wears glasses but not her at this time Cardiovascular History: Reports: High Cholesterol, [place] Other Cardiovascular History: HX OF CHEST PAIN AT REST, Last used Nitro 2-3 months ago Respiratory History: Reports: Asthma, COPD Gastrointestinal History: Reports: GERD, Hiatal Hernia Other Gastrointestinal History: S/P GASTRIC EROSIONS Genitourinary History: Reports: None 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 nvd Musculoskeletal History: Reports: Arthritis, Fracture, Other (See Below) Other Musculoskeletal History: foot Neurological History: Reports: None Psychiatric History: Reports: Anxiety Endocrine/Metabolic History: Reports: Hypothyroidism, Obesity/BMI 30+ Hematologic History: Reports: Blood Transfusion(s), Iron Deficiency Immunologic History: Reports: None Oncologic (Cancer) History: Reports: None Dermatologic History: Reports: None - Infectious Disease History Infectious Disease History: Reports: Chicken Pox, Measles - Past Surgical History Head Surgeries/Procedures: Reports: None HEENT Surgical History: Reports: Adenoidectomy, Tonsillectomy Respiratory Surgical History: Reports: None GI Surgical History: Reports: Bariatric Procedure, Cholecystectomy, EGD, Hernia Repair/Other, Fernando Fundoplication, Other (See Below) Other GI Surgeries/Procedures: laser surgery on gallbladder. S/P GASTRECTOMY Female Surgical History: Reports: Hysterectomy Endocrine Surgical History: Reports: None Neurological Surgical History: Reports: None Other Musculoskeletal Surgeries/Procedures:: SCREW LEFT BUNION REPAIR. Screw right Bunion repair Oncologic Surgical History: Reports: None Dermatological Surgical History: Reports: None Social & Family History - Family History Family Medical History: Noncontributory Cardiac: Reports: CAD, Heart Failure, High Cholesterol, Hypertension, [place] Respiratory: Reports: Asthma, COPD GI: Reports: GERD : Reports: Renal Disease/Insufficiency Musculoskeletal: Reports: Arthritis, Back pain, Chronic Neurological: Reports: CVA Endocrine/Metabolic: Reports: Diabetes, type II, Obesity/MBI 30+ Oncologic: Reports: Other (See Below) Other Oncologic Family History: MOTHER HAD STOMACH CA. - Tobacco Use Smoking Status *Q: Current Every Day Smoker Tobacco Use Within Last Twelve Months: Cigarettes Years of Tobacco use: 40 - Caffeine Use Caffeine Use: Reports: Coffee Other Caffeine Use: COFFEE AVERAGE OF 6 CUPS DAILY - Living Situation & Occupation Living situation: Reports: with Family Occupation: Unemployed ED ROS GENERAL - Review of Systems Review Of Systems: ROS reveals no pertinent complaints other than HPI. ED EXAM, GENERAL - Physical Exam Exam: See Below Exam Limited By: No Limitations General Appearance: Alert, No Apparent Distress, Obese Nose: Normal Inspection Throat/Mouth: Normal Inspection, Normal Lips, Normal Voice, No Airway Compromise Head: Atraumatic, Normocephalic Neck: Normal Inspection, Supple, Non-Tender, Full Range of Motion Respiratory/Chest: No Respiratory Distress, No Accessory Muscle Use, Chest Non- Tender, Decreased Breath Sounds, Crackles, Wheezing. No: Rales, Rhonchi, Stridor Cardiovascular: Normal Peripheral Pulses, Regular Rate, Rhythm, No Edema, No Gallop, No JVD, No Murmur, No Rub GI/Abdominal: Normal Bowel Sounds, Soft, Tender (mid-abdomen). No: Guarding, Rigid, Rebound Back Exam: Normal Inspection Extremities: Leg Pain (Rt knee with small contusion, slight swelling) Neurological: Alert, Oriented, CN II-XII Intact, Normal Cognition, Normal Reflexes, No Motor/Sensory Deficits Psychiatric: Normal Affect, Normal Mood Skin Exam: Warm, Dry, Intact EKG INTERPRETATION EKG Date: 07/12/18 Time: 18:33 Rhythm: Other (SR) Rate (Beats/Min): 71 [place]: Normal P-Wave: Present QRS: Normal ST-T: Other (nonspecific T wave changes) QT: Normal Comparison: No Change Course - Vital Signs Last Recorded V/S: Last Vital Signs Temp 98.8 F 07/12/18 18:55 Pulse 71 07/12/18 18:55 Resp 24 H 07/12/18 18:55 BP 120/47 L 07/12/18 18:55 Pulse Ox 97 07/12/18 18:55 - Orders/Labs/Meds Orders: Active Orders 24 hr Category Date Time Status EKG 12 Lead [EKG Documentation Completion] [RC] STAT Care 07/12/18 18:30 Active Peripheral IV Care [RC] . DIRECTED Care 07/12/18 18:29 Active RT Aerosol Therapy [RC] ASDIRECTED Care 07/12/18 18:30 Active Chest 2V [CR] Stat Exams 07/12/18 18:28 Taken CULTURE BLOOD [BC] Stat Lab 07/12/18 18:44 Received CULTURE URINE [RM] Stat Lab 07/12/18 19:05 Received TROPONIN I [CHEM] Stat Lab 07/12/18 18:30 Ordered Sodium Chloride 0.9% [Saline Flush] Med 07/12/18 18:29 Active 10 ml FLUSH ASDIRECTED PRN Peripheral IV Insertion Adult [OM.PC] Stat Oth 07/12/18 18:28 Ordered Medication Orders Sodium Chloride (Saline Flush) 10 ml FLUSH ASDIRECTED PRN PRN Reason: Keep Vein Open Last Admin: 07/12/18 18:46 Dose: 10 ml Labs: Laboratory Tests 07/12/18 07/12/18 07/12/18 Range/Units 18:44 18:44 18:44 WBC 7.1 (5.0-10.0) 10^3/uL RBC 4.66 (4.2-5.4) 10^6/uL Hgb 13.1 (12.0-16.0) g/dL Hct 41.1 (37.0-47.0) % MCV 88.2 (80-100) fL MCH 28.1 (27.0-34.0) pg MCHC 31.9 L (33.0-35.0) g/dL Plt Count 251 (150-450) 10^3/uL Neut % (Auto) 59.1 (42.2-75.2) % Lymph % (Auto) 20.6 (20.5-50.1) % [place] % (Auto) 5.2 (2-8) % Eos % (Auto) 14.5 H (1.0-3.0) % Baso % (Auto) 0.6 (0.0-1.0) % Add Manual Diff Yes Neutrophils % (Manual) 63 (42-75) % Band Neutrophils % 1 % Lymphocytes % (Manual) 19 L (20-50) % Monocytes % (Manual) 4 (2-8) % Eosinophils % (Manual) 13 H (1-3) % Sodium 141 (135-145) mmol/L Potassium 3.9 (3.6-5.0) mmol/L Chloride 110 (101-111) mmol/L Carbon Dioxide 23.0 (21.0-31.0) mmol/L Anion Gap 11.9 BUN 11 (7-18) mg/dL Creatinine 0.6 (0.6-1.3) mg/dL Est Cr Clr Drug Dosing 81.82 mL/min Estimated GFR (MDRD) > 60 BUN/Creatinine Ratio 18.33 Glucose 129 H (74-105) mg/dL Lactic Acid 1.4 (0.5-2.2) mmol/L Calcium 8.9 (8.4-10.2) mg/dl Total Bilirubin 0.6 (0.2-1.0) mg/dL AST 23 (10-42) IU/L ALT 28 (10-60) IU/L Alkaline Phosphatase 84 (42-121) IU/L Troponin I < 0.02 (0.00-0.02) ng/ml Total Protein 6.8 (6.7-8.2) g/dl Albumin 4.1 (3.2-5.5) g/dl Globulin 2.7 Albumin/Globulin Ratio 1.52 Urine Color (YELLOW) Urine Appearance (CLEAR) Urine pH (5.0-9.0) Ur Specific [place] (1.005-1.030) Urine Protein (NEGATIVE) Urine Glucose (UA) (NEGATIVE) Urine Ketones (NEGATIVE) Urine Occult Blood (NEGATIVE) Urine Nitrite (NEGATIVE) Urine Bilirubin (NEGATIVE) Urine Urobilinogen (0.2-1.0) mg/dL Ur Leukocyte Esterase (NEGATIVE) Urine RBC /HPF Urine WBC (0-5/HPF) /HPF Ur Epithelial Cells (NOT SEEN) /HPF Urine Bacteria (0-FEW/HPF) /HPF 07/12/ Range/Units 19:05 WBC (5.0-10.0) 10^3/uL RBC (4.2-5.4) 10^6/uL Hgb (12.0-16.0) g/dL Hct (37.0-47.0) % MCV (80-100) fL MCH (27.0-34.0) pg MCHC (33.0-35.0) g/dL Plt Count (150-450) 10^3/uL Neut % (Auto) (42.2-75.2) % Lymph % (Auto) (20.5-50.1) % [place] % (Auto) (2-8) % Eos % (Auto) (1.0-3.0) % Baso % (Auto) (0.0-1.0) % Add Manual Diff Neutrophils % (Manual) (42-75) % Band Neutrophils % % Lymphocytes % (Manual) (20-50) % Monocytes % (Manual) (2-8) % Eosinophils % (Manual) (1-3) % Sodium (135-145) mmol/L Potassium (3.6-5.0) mmol/L Chloride (101-111) mmol/L Carbon Dioxide (21.0-31.0) mmol/L Anion Gap BUN (7-18) mg/dL Creatinine (0.6-1.3) mg/dL Est Cr Clr Drug Dosing mL/min Estimated GFR (MDRD) BUN/Creatinine Ratio Glucose (74-105) mg/dL Lactic Acid (0.5-2.2) mmol/L Calcium (8.4-10.2) mg/dl Total Bilirubin (0.2-1.0) mg/dL AST (10-42) IU/L ALT (10-60) IU/L Alkaline Phosphatase (42-121) IU/L Troponin I (0.00-0.02) ng/ml Total Protein (6.7-8.2) g/dl Albumin (3.2-5.5) g/dl Globulin Albumin/Globulin Ratio Urine Color Yellow (YELLOW) Urine Appearance Clear (CLEAR) Urine pH 5.5 (5.0-9.0) Ur Specific [place] 1.015 (1.005-1.030) Urine Protein Negative (NEGATIVE) Urine Glucose (UA) Negative (NEGATIVE) Urine Ketones Negative (NEGATIVE) Urine Occult Blood Negative (NEGATIVE) Urine Nitrite Negative (NEGATIVE) Urine Bilirubin Negative (NEGATIVE) Urine Urobilinogen 0.2 (0.2-1.0) mg/dL Ur Leukocyte Esterase Small H (NEGATIVE) Urine RBC 5-10 H /HPF Urine WBC 5-10 H (0-5/HPF) /HPF Ur Epithelial Cells Moderate H (NOT SEEN) /HPF Urine Bacteria Few (0-FEW/HPF) /HPF Meds: Medications Generic Name Dose Route Start Last Admin Trade Name Freq PRN Reason Stop Dose Admin Sodium Chloride 10 ml 07/12/18 18:29 07/12/18 18:46 Saline Flush FLUSH 10 ml ASDIRECTED PRN Administration Keep Vein Open Discontinued Medications Generic Name Dose Route Start Last Admin Trade Name Freq PRN Reason Stop Dose Admin Albuterol/Ipratropium 3 ml 07/12/18 18:30 07/12/18 18:47 Duoneb 3.0-0.5 Mg/3 Ml NEB 07/12/18 18:31 3 ml ONETIME ONE Administration Methylprednisolone Sodium Succinate 125 mg 07/12/18 18:30 07/12/18 18:45 Solu-Medrol IVPUSH 07/12/18 18:31 125 mg ONETIME ONE Administration - Radiology Interpretation Free Text/Narrative:: Chest XR: no acute findings, moderate hiatal hernia per Rad. report. - Re-Assessments/Exams Free Text/Narrative Re-Assessment/Exam: 07/12/18 18:56 Care of pt transferred to Mary Salas SHORT STORY WRITER at 1900HR shift change. Departure - Departure Disposition: Home, Self-Care 01 Clinical Impression: COPD with acute exacerbation - Discharge Information Instructions: Shortness of Breath, Adult, [id number], Steps to Quit Smoking, [id number], Chronic Obstructive Pulmonary Disease Exacerbation, [id number] Forms: ED Department Discharge Additional Instructions: Continue to use Albuterol inhaler and nebulizers as directed Follow up with your primary care facility RX: Albuterol inhaler <Mary Salas - Last Filed: 07/12/18 19:23> Departure - Departure Time of Disposition: 19:22 Condition: Fair - Discharge Information *PRESCRIPTION DRUG MONITORING PROGRAM REVIEWED*: No *COPY OF PRESCRIPTION DRUG MONITORING REPORT IN PATIENT FRANCO: No
[2018-07-12] MEDS ORDERED: Sodium Chloride 0.9% 10 ML Syringe FLUSH PRN (18:29)
[2018-07-12] MEDS ORDERED: Albuterol/Ipratropium 3.0-0.5 MG/3 ML Neb Soln NEB ONE (18:30)
[2018-07-12] MEDS ORDERED: methylPREDNISolone Sodium Succinate 125 MG/2 ML SDV IVPUSH ONE (18:30)
[2018-07-12 19:12] LABS: ANION GAP 11.9; CHLORIDE,CL 110 mmol/L (101-111); SODIUM,NA 141 mmol/L (135-145)
[2018-07-12 19:35] VITALS: BP 113/43; PULSE 72
== END 2018-07-12 19:34 | disposition home or self-care (01) ==
LOC: DL.ED 17:48
DX: J44.1 Chronic obstructive pulmonary disease with (acute) exacerbation (principal); F17.210 Nicotine dependence, cigarettes, uncomplicated; F41.9 Anxiety disorder, unspecified; E03.9 Hypothyroidism, unspecified; Z79.899 Other long term (current) drug therapy; Z88.1 Allergy status to other antibiotic agents; Z88.5 Allergy status to narcotic agent; Z88.8 Allergy status to other drugs, medicaments and biological substances
CPT/HCPCS: 36415; 71046; 80053; 81001; 83605; 84484; 85025; 87040; 87086; 93005; 94640; 96374; 99284; J2930; A9270-GY; J7620-GY

== ENCOUNTER 2019-02-06 11:33 | Emergency (ER) | payer MEDICAID ==
[2019-02-06 11:45] VITALS: BP 143/55
[2019-02-06] MEDS ORDERED: Albuterol/Ipratropium 3.0-0.5 MG/3 ML Neb Soln NEB ONE (12:18)
[2019-02-06] MEDS ORDERED: methylPREDNISolone Sodium Succinate 125 MG/2 ML SDV IVPUSH ONE (12:19)
[2019-02-06 12:48] VITALS: PULSE 90
--- NOTE | 2019-02-06 13:12 | EDM.PDOC ---
Scribed by Jeanne Pate 02/06/19 1311 for Laz Nayak PA ED HPI GENERAL MEDICAL PROBLEM - General Chief Complaint: Respiratory Problem Stated Complaint: RESPIRATORY PROBLEM Time Seen by Provider: 02/06/19 12:10 Source of Information: Reports: Patient, RN, RN Notes Reviewed History Limitations: Reports: No Limitations - History of Present Illness INITIAL COMMENTS - FREE TEXT/NARRATIVE: Patient is a 58-year-old female presents with a hard time breathing for [address] Da Silva in clinic and was prescribed antibiotic. She has an appointment at 2 P.M. today but came to the ED due to shortness of breath. Onset: Gradual Duration: Getting Worse Location: Reports: Chest Quality: Reports: Ache Severity: Moderate Improves with: Reports: None Worsens with: Reports: None Associated Symptoms: Reports: No Other Symptoms - Related Data Allergies Allergy/AdvReac Type Severity Reaction Status Date / Time cephalexin monohydrate Allergy Rash Verified 09/08/18 19:10 [From Keflex] codeine Allergy Hives Verified 09/08/18 19:10 hydroxyzine Allergy Cannot Verified 09/08/18 19:10 Remember pantoprazole [From Protonix] Allergy Tremors Verified 09/08/18 19:10 propoxyphene napsylate Allergy Cannot Verified 09/08/18 19:10 [From Darvocet-N] Remember ondansetron AdvReac Intermediate Other Verified 09/08/18 19:10 Home Meds: Home Meds Montelukast [Singulair] 10 mg PO DAILY 08/23/13 [History] Levothyroxine 75 mcg PO DAILY 10/12/13 [History] Mometasone/Formoterol [Dulera 200 MCG/5 MCG] 2 puff INH BID 12/09/14 [History] Albuterol Sulfate [Proventil Hfa] 2 puff IH Q6HR PRN 05/15/15 [History] Benzonatate [Tessalon Perles] 200 mg PO DAILY PRN 05/15/15 [History] Diclofenac Sodium [Voltaren 1% Gel] 1 applic TOP ASDIRECTED 01/26/17 [History] Fluticasone Propionate [Flonase Allergy Relief] 1 - 2 spray NASBOTH ASDIRECTED 01/26/17 [History] atorvaSTATin [Lipitor] 20 mg PO DAILY 01/26/17 [History] Omeprazole 20 mg PO DAILY 01/27/17 [History] DULoxetine HCl [Cymbalta] 30 mg PO DAILY 10/28/17 [History] Nitroglycerin [Nitrostat] 0.4 mg PO ASDIRECTED 10/28/17 [History] Albuterol/Ipratropium [DuoNeb 3.0-0.5 MG/3 ML] 3 ml NEB BID PRN 03/29/18 [ History] Docusate Sodium [Colace] 50 mg PO DAILY PRN 03/29/18 [History] Past Medical History HEENT History: Reports: Allergic Rhinitis, Impaired Vision, Sinusitis Other HEENT History: wears glasses but not her at this time Cardiovascular History: Reports: High Cholesterol, [place] Other Cardiovascular History: HX OF CHEST PAIN AT REST, Last used Nitro 2-3 months ago Respiratory History: Reports: Asthma, COPD Gastrointestinal History: Reports: GERD, Hiatal Hernia Other Gastrointestinal History: S/P GASTRIC EROSIONS Genitourinary History: Reports: None 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 Musculoskeletal History: Reports: Arthritis, Fracture, Other (See Below) Other Musculoskeletal History: foot Neurological History: Reports: None Psychiatric History: Reports: Anxiety Endocrine/Metabolic History: Reports: Hypothyroidism, Obesity/BMI 30+ Hematologic History: Reports: Blood Transfusion(s), Iron Deficiency Immunologic History: Reports: None Oncologic (Cancer) History: Reports: None Dermatologic History: Reports: None - Infectious Disease History Infectious Disease History: Reports: Chicken Pox, Measles - Past Surgical History Head Surgeries/Procedures: Reports: None HEENT Surgical History: Reports: Adenoidectomy, Tonsillectomy Respiratory Surgical History: Reports: None GI Surgical History: Reports: Bariatric Procedure, Cholecystectomy, EGD, Hernia Repair/Other, Fernando Fundoplication, Other (See Below) Other GI Surgeries/Procedures: laser surgery on gallbladder. S/P GASTRECTOMY Female Surgical History: Reports: Hysterectomy Endocrine Surgical History: Reports: None Neurological Surgical History: Reports: None Other Musculoskeletal Surgeries/Procedures:: SCREW LEFT BUNION REPAIR. Screw right Bunion repair Oncologic Surgical History: Reports: None Dermatological Surgical History: Reports: None Social & Family History - Family History Family Medical History: Noncontributory Cardiac: Reports: CAD, Heart Failure, High Cholesterol, Hypertension, [place] Respiratory: Reports: Asthma, COPD GI: Reports: GERD : Reports: Renal Disease/Insufficiency Musculoskeletal: Reports: Arthritis, Back pain, Chronic Neurological: Reports: CVA Endocrine/Metabolic: Reports: Diabetes, type II, Obesity/MBI 30+ Oncologic: Reports: Other (See Below) Other Oncologic Family History: MOTHER HAD STOMACH CA. - Tobacco Use Smoking Status *Q: Never Smoker Second Hand Smoke Exposure: No - Caffeine Use Caffeine Use: Reports: None Other Caffeine Use: COFFEE AVERAGE OF 6 CUPS DAILY - Recreational Drug Use Recreational Drug Use: No - Living Situation & Occupation Living situation: Reports: with Family Occupation: Unemployed ED ROS GENERAL - Review of Systems Review Of Systems: Comprehensive ROS is negative, except as noted in HPI. ED EXAM, GENERAL - Physical Exam Exam: See Below Exam Limited By: No Limitations General Appearance: Alert, WD/WN, No Apparent Distress Eye Exam: Bilateral Eye: EOMI, Normal Inspection, PERRL Ears: Normal External Exam, Normal Canal, Hearing Grossly Normal, Normal TMs Nose: Normal Inspection, Normal Mucosa, No Blood Throat/Mouth: Normal Inspection, Normal Lips, Normal Teeth, Normal Gums, Normal Oropharynx, Normal Voice, No Airway Compromise Head: Atraumatic, Normocephalic Neck: Normal Inspection, Supple, Non-Tender, Full Range of Motion Respiratory/Chest: Rhonchi, Wheezing Cardiovascular: Normal Peripheral Pulses, Regular Rate, Rhythm, No Edema, No Gallop, No JVD, No Murmur, No Rub GI/Abdominal: Normal Bowel Sounds, Soft, Non-Tender, No Organomegaly, No Distention, No Abnormal Bruit, No Mass (Female) Exam: Deferred Rectal (Female) Exam: Deferred Back Exam: Normal Inspection, Full Range of Motion, NT Extremities: Normal Inspection, Normal Range of Motion, Non-Tender, Normal Capillary Refill, No Pedal Edema Neurological: Alert, Oriented, CN II-XII Intact, Normal Cognition, Normal Gait, Normal Reflexes, No Motor/Sensory Deficits Psychiatric: Normal Affect, Normal Mood Skin Exam: Warm, Dry, Intact, Normal Color, No Rash Lymphatic: No Adenopathy Course - Vital Signs Last Recorded V/S: Last Vital Signs Temp 36.5 C 02/06/19 11:43 Pulse 90 02/06/19 12:46 Resp 19 02/06/19 11:43 BP 143/55 H 02/06/19 11:43 Pulse Ox 94 L 02/06/19 11:43 - Orders/Labs/Meds Orders: Active Orders 24 hr Category Date Time Status RT Aerosol Therapy [RC] ASDIRECTED Care 02/06/19 12:18 Ordered CBC WITH AUTO DIFF [HEME] Stat Lab 02/06/19 12:11 Ordered COMPREHENSIVE METABOLIC PN,CMP [CHEM] Stat Lab 02/06/19 12:11 Ordered CULTURE BLOOD [BC] Stat Lab 02/06/19 12:12 Ordered CULTURE BLOOD [BC] Stat Lab 02/06/19 12:12 Ordered LACTIC ACID [CHEM] Stat Lab 02/06/19 12:11 Ordered Blood Culture x2 Reflex Set [OM.PC] Stat Oth 02/06/19 12:11 Ordered Meds: Medications Discontinued Medications Generic Name Dose Route Start Last Admin Trade Name Freq PRN Reason Stop Dose Admin Albuterol/Ipratropium 3 ml 02/06/19 12:18 02/06/19 12:48 Duoneb 3.0-0.5 Mg/3 Ml NEB 02/06/19 12:19 3 ml ONETIME ONE Administration Methylprednisolone Sodium Succinate 125 mg 02/06/19 12:19 02/06/19 12:53 Solu-Medrol IVPUSH 02/06/19 12:20 125 mg ONETIME ONE Administration Departure - Departure Time of Disposition: 13:07 Disposition: Home, Self-Care 01 Condition: Fair Clinical Impression: COPD exacerbation - Discharge Information *PRESCRIPTION DRUG MONITORING PROGRAM REVIEWED*: Not Applicable *COPY OF PRESCRIPTION DRUG MONITORING REPORT IN PATIENT FRANCO: Not Applicable Instructions: Chronic Obstructive Pulmonary Disease Exacerbation, [id number] Forms: ED Department Discharge Care Plan Goals: The patient was advised of the examination, lab and x-ray results during the visit. The patient was given a Duoneb treatment and an IV dose of steroids while in the ED. The patient was discharged with prescriptions for 1) Prednisone (20 mg) #10 to take 2 by mouth daily for 5 days, 2) Albuterol MDI #1 to take 2 puffs up to 4 times per day as needed and 3) Duoneb (nebulizer solution) #1 box to take 1 treatment 3 times per day as needed. If the patient has any additional symptoms or concerns, the patient should either visit her primary care facility or return to the emergency department. Sepsis Event Note - Evaluation Sepsis Screening Result: No Definite Risk - Focused Exam Vital Signs: Vital Signs Temp Pulse Resp BP Pulse Ox 02/06/19 12:46 90 02/06/19 11:43 36.5 C 80 19 143/55 H 94 L Date Exam was Performed: 02/06/19 Time Exam was Performed: 13:07 - My Orders Last 24 Hours: My Active Orders 02/06/19 12:11 CBC WITH AUTO DIFF [HEME] Stat COMPREHENSIVE METABOLIC PN,CMP [CHEM] Stat LACTIC ACID [CHEM] Stat Blood Culture x2 Reflex Set [OM.PC] Stat 02/06/19 12:12 CULTURE BLOOD [BC] Stat CULTURE BLOOD [BC] Stat 02/06/19 12:18 RT Aerosol Therapy [RC] ASDIRECTED - Assessment/Plan Last 24 Hours: My Active Orders 02/06/19 12:11 CBC WITH AUTO DIFF [HEME] Stat COMPREHENSIVE METABOLIC PN,CMP [CHEM] Stat LACTIC ACID [CHEM] Stat Blood Culture x2 Reflex Set [OM.PC] Stat 02/06/19 12:12 CULTURE BLOOD [BC] Stat CULTURE BLOOD [BC] Stat 02/06/19 12:18 RT Aerosol Therapy [RC] ASDIRECTED I have read and agree with the documentation that has been completed regarding this visit. By signing this record, I attest that the documentation was completed in my physical presence and is an accurate record of the encounter.
[2019-02-06 13:40] LABS: ANION GAP 12.9; CHLORIDE,CL 104 mmol/L (101-111); SODIUM,NA 138 mmol/L (135-145)
== END 2019-02-06 13:13 | disposition home or self-care (01) ==
LOC: DL.ED 11:33
DX: J44.1 Chronic obstructive pulmonary disease with (acute) exacerbation (principal); E03.9 Hypothyroidism, unspecified; E66.9 Obesity, unspecified; Z98.890 Other specified postprocedural states; Z98.84 Bariatric surgery status; Z90.49 Acquired absence of other specified parts of digestive tract; Z88.8 Allergy status to other drugs, medicaments and biological substances; Z79.899 Other long term (current) drug therapy; Z88.5 Allergy status to narcotic agent
CPT/HCPCS: 11750; 36415; 71046; 80053; 83605; 85025; 87040; 94640; 96374; 99285; J2930; J7620-GY

== ENCOUNTER 2020-04-12 02:47 | Inpatient (IN) | payer MEDICAID ==
--- NOTE | 2020-04-12 03:06 | EDM.PDOC ---
ED HPI GENERAL MEDICAL PROBLEM - General Chief Complaint: Respiratory Problem Stated Complaint: AMBULANCE Time Seen by Provider: 04/12/20 03:05 Source of Information: Reports: Patient, EMS, RN History Limitations: Reports: No Limitations - History of Present Illness INITIAL COMMENTS - FREE TEXT/NARRATIVE: ED with c/o cough, chills and SOB. Onset sx about 10 days prior, has been on Augmentin and most recently 3/3 switched to doxycycline. Tonight woke with coughing spell and unable to catch breath after, Chest pain only with cough. Hx COPD . Sats room air 85%. No nausea or vomiting. . Feels shakey after neb. . Last neb Albuterol by EMS. Some improvement . - Related Data Allergies Allergy/AdvReac Type Severity Reaction Status Date / Time cephalexin monohydrate Allergy Rash Verified 04/12/20 03:02 [From Keflex] codeine Allergy Hives Verified 04/12/20 03:02 hydroxyzine Allergy Cannot Verified 04/12/20 03:02 Remember pantoprazole [From Protonix] Allergy Tremors Verified 04/12/20 03:02 propoxyphene napsylate Allergy Cannot Verified 04/12/20 03:02 [From Darvocet-N] Remember ondansetron AdvReac Intermediate Other Verified 04/12/20 03:02 Home Meds: Home Meds Montelukast [Singulair] 10 mg PO DAILY 08/23/13 [History] Levothyroxine 75 mcg PO DAILY 10/12/13 [History] Mometasone/Formoterol [Dulera 200 MCG/5 MCG] 2 puff INH BID 12/09/14 [History] Albuterol Sulfate [Proventil Hfa] 2 puff IH Q6HR PRN 05/15/15 [History] Benzonatate [Tessalon Perles] 200 mg PO DAILY PRN 05/15/15 [History] Diclofenac Sodium [Voltaren 1% Gel] 1 applic TOP ASDIRECTED 01/26/17 [History] Fluticasone Propionate [Flonase Allergy Relief] 1 - 2 spray NASBOTH ASDIRECTED 01/26/17 [History] atorvaSTATin [Lipitor] 20 mg PO DAILY 01/26/17 [History] Omeprazole 20 mg PO DAILY 01/27/17 [History] DULoxetine HCl [Cymbalta] 30 mg PO DAILY 10/28/17 [History] Nitroglycerin [Nitrostat] 0.4 mg PO ASDIRECTED 10/28/17 [History] Albuterol/Ipratropium [DuoNeb 3.0-0.5 MG/3 ML] 3 ml NEB BID PRN 03/29/18 [History] Docusate Sodium [Colace] 50 mg PO DAILY PRN 03/29/18 [History] Past Medical History HEENT History: Reports: Allergic Rhinitis, Impaired Vision, Sinusitis Other HEENT History: wears glasses but not her at this time Cardiovascular History: Reports: High Cholesterol, CT Other Cardiovascular History: HX OF CHEST PAIN AT REST, Last used Nitro 2-3 months ago Respiratory History: Reports: Asthma, COPD Gastrointestinal History: Reports: GERD, Hiatal Hernia Other Gastrointestinal History: S/P GASTRIC EROSIONS Genitourinary History: Reports: None VULCANIZER RUBBER PLATE History: Reports: Other VULCANIZER RUBBER PLATE History: 4 nvd Musculoskeletal History: Reports: Arthritis, Fracture, Other (See Below) Other Musculoskeletal History: foot Neurological History: Reports: None Psychiatric History: Reports: Anxiety Endocrine/Metabolic History: Reports: Hypothyroidism, Obesity/BMI 30+ Hematologic History: Reports: Blood Transfusion(s), Iron Deficiency Immunologic History: Reports: None Oncologic (Cancer) History: Reports: None Dermatologic History: Reports: None - Infectious Disease History Infectious Disease History: Reports: Chicken Pox, Measles - Past Surgical History Head Surgeries/Procedures: Reports: None HEENT Surgical History: Reports: Adenoidectomy, Tonsillectomy Respiratory Surgical History: Reports: None GI Surgical History: Reports: Bariatric Procedure, Cholecystectomy, EGD, Hernia Repair/Other, Fernando Fundoplication, Other (See Below) Other GI Surgeries/Procedures: laser surgery on gallbladder. S/P GASTRECTOMY Female Surgical History: Reports: Hysterectomy Endocrine Surgical History: Reports: None Neurological Surgical History: Reports: None Other Musculoskeletal Surgeries/Procedures:: SCREW LEFT BUNION REPAIR. Screw right Bunion repair Oncologic Surgical History: Reports: None Dermatological Surgical History: Reports: None Social & Family History - Family History Family Medical History: No Pertinent Family History Cardiac: Reports: CAD, Heart Failure, High Cholesterol, Hypertension, CT Respiratory: Reports: Asthma, COPD GI: Reports: GERD : Reports: Renal Disease/Insufficiency Musculoskeletal: Reports: Arthritis, Back pain, Chronic Neurological: Reports: CVA Endocrine/Metabolic: Reports: Diabetes, type II, Obesity/MBI 30+ Oncologic: Reports: Other (See Below) Other Oncologic Family History: MOTHER HAD STOMACH CA. - Caffeine Use Caffeine Use: Reports: None Other Caffeine Use: COFFEE AVERAGE OF 6 CUPS DAILY - Living Situation & Occupation Living situation: Reports: with Family Occupation: Unemployed ED ROS GENERAL - Review of Systems Review Of Systems: Comprehensive ROS is negative, except as noted in HPI. ED EXAM, GENERAL - Physical Exam Exam: See Below Exam Limited By: No Limitations General Appearance: Alert, Anxious, Mild Distress, Obese Eye Exam: Bilateral Eye: EOMI Ears: Normal External Exam, Hearing Grossly Normal Nose: Normal Inspection Throat/Mouth: Normal Inspection, Normal Voice Head: Atraumatic, Normocephalic Neck: Normal Inspection Respiratory/Chest: Decreased Breath Sounds, Wheezing (mid to base bilaterally), Other (harsh loose productive cough) Cardiovascular: Normal Peripheral Pulses, Regular Rate, Rhythm. No: JVD GI/Abdominal: Normal Bowel Sounds, Soft Neurological: Alert, Oriented, Normal Cognition Psychiatric: Normal Affect, Anxious Skin Exam: Warm, Dry, Intact, Normal Color Course - Vital Signs Last Recorded V/S: Last Vital Signs Temp 98.2 F 04/12/20 03:02 Pulse 89 04/12/20 03:02 Resp 18 04/12/20 03:02 BP 134/84 04/12/20 03:02 Pulse Ox 93 L 04/12/20 03:14 - Orders/Labs/Meds Orders: Active Orders 24 hr Category Date Time Status EKG Documentation Completion [RC] URGENT Care 04/12/20 02:50 Active Code Status [Resuscitation Status] Stat Resus Stat 04/12/20 04:24 Ordered Labs: Laboratory Tests 04/12/20 04/12/20 04/12/20 Range/Units 03:00 03:00 03:00 WBC 10.9 H (5.0-10.0) 10^3/uL RBC 4.62 (4.2-5.4) 10^6/uL Hgb 11.8 L (12.0-16.0) g/dL Hct 38.2 (37.0-47.0) % MCV 82.7 D (80-100) fL MCH 25.5 L (27.0-34.0) pg MCHC 30.9 L (33.0-35.0) g/dL Plt Count 297 (150-450) 10^3/uL Neut % (Auto) 85.7 H (42.2-75.2) % Lymph % (Auto) 10.1 L (20.5-50.1) % Braxton % (Auto) 3.6 (2-8) % Eos % (Auto) 0.1 L (1.0-3.0) % Baso % (Auto) 0.5 (0.0-1.0) % D-Dimer, Quantitative < 100 (0-400) ng/mL Sodium 144 (136-145) mmol/L Potassium 4.0 (3.5-5.1) mmol/L Chloride 106 (98-107) mmol/L Carbon Dioxide 24 (21-32) mmol/L Anion Gap 18.0 H (7-13) mEq/L BUN 28 H (7-18) mg/dL Creatinine 0.89 (0.55-1.02) mg/dL Est Cr Clr Drug Dosing 53.83 mL/min Estimated GFR (MDRD) > 60 BUN/Creatinine Ratio 31.5 (No establ ref range) Glucose 135 H (74-99) mg/dL Lactic Acid (0.4-2.0) mmol/L Calcium 8.7 (8.5-10.1) mg/dL Total Bilirubin 0.4 (0.2-1.0) mg/dL AST 16 (15-37) U/L ALT 39 (14-59) U/L Alkaline Phosphatase 87 (46-116) U/L Troponin I < 0.017 (0.000-0.056) ng/mL B-Natriuretic Peptide (0-100) pg/ml Total Protein 7.3 (6.4-8.2) g/dL Albumin 3.9 (3.4-5.0) g/dL Globulin 3.4 Albumin/Globulin Ratio 1.1 Urine Color (YELLOW) Urine Appearance (CLEAR) Urine pH (5.0-9.0) Ur Specific [place] (1.005-1.030) Urine Protein (NEGATIVE) Urine Glucose (UA) (NEGATIVE) Urine Ketones (NEGATIVE) Urine Occult Blood (NEGATIVE) Urine Nitrite (NEGATIVE) Urine Bilirubin (NEGATIVE) Urine Urobilinogen (0.2-1.0) mg/dL Ur Leukocyte Esterase (NEGATIVE) Urine RBC /HPF Urine WBC (0-5/HPF) /HPF Ur Epithelial Cells (NOT SEEN) /HPF Urine Bacteria (0-FEW/HPF) /HPF Influenza Type A RNA (NEGATIVE) Influenza Type B RNA (NEGATIVE) SARS-CoV-2 RNA (ROSA) (NEGATIVE) 04/12/20 04/12/20 04/12/20 Range/Units 03:00 03:00 03:08 WBC (5.0-10.0) 10^3/uL RBC (4.2-5.4) 10^6/uL Hgb (12.0-16.0) g/dL Hct (37.0-47.0) % MCV (80-100) fL MCH (27.0-34.0) pg MCHC (33.0-35.0) g/dL Plt Count (150-450) 10^3/uL Neut % (Auto) (42.2-75.2) % Lymph % (Auto) (20.5-50.1) % Braxton % (Auto) (2-8) % Eos % (Auto) (1.0-3.0) % Baso % (Auto) (0.0-1.0) % D-Dimer, Quantitative (0-400) ng/mL Sodium (136-145) mmol/L Potassium (3.5-5.1) mmol/L Chloride (98-107) mmol/L Carbon Dioxide (21-32) mmol/L Anion Gap (7-13) mEq/L BUN (7-18) mg/dL Creatinine (0.55-1.02) mg/dL Est Cr Clr Drug Dosing mL/min Estimated GFR (MDRD) BUN/Creatinine Ratio (No establ ref range) Glucose (74-99) mg/dL Lactic Acid 2.6 H* (0.4-2.0) mmol/L Calcium (8.5-10.1) mg/dL Total Bilirubin (0.2-1.0) mg/dL AST (15-37) U/L ALT (14-59) U/L Alkaline Phosphatase (46-116) U/L Troponin I (0.000-0.056) ng/mL B-Natriuretic Peptide 14 (0-100) pg/ml Total Protein (6.4-8.2) g/dL Albumin (3.4-5.0) g/dL Globulin Albumin/Globulin Ratio Urine Color (YELLOW) Urine Appearance (CLEAR) Urine pH (5.0-9.0) Ur Specific [place] (1.005-1.030) Urine Protein (NEGATIVE) Urine Glucose (UA) (NEGATIVE) Urine Ketones (NEGATIVE) Urine Occult Blood (NEGATIVE) Urine Nitrite (NEGATIVE) Urine Bilirubin (NEGATIVE) Urine Urobilinogen (0.2-1.0) mg/dL Ur Leukocyte Esterase (NEGATIVE) Urine RBC /HPF Urine WBC (0-5/HPF) /HPF Ur Epithelial Cells (NOT SEEN) /HPF Urine Bacteria (0-FEW/HPF) /HPF Influenza Type A RNA Negative (NEGATIVE) Influenza Type B RNA Negative (NEGATIVE) SARS-CoV-2 RNA (ROSA) Negative (NEGATIVE) 04/12/20 Range/Units 03:08 WBC (5.0-10.0) 10^3/uL RBC (4.2-5.4) 10^6/uL Hgb (12.0-16.0) g/dL Hct (37.0-47.0) % MCV (80-100) fL MCH (27.0-34.0) pg MCHC (33.0-35.0) g/dL Plt Count (150-450) 10^3/uL Neut % (Auto) (42.2-75.2) % Lymph % (Auto) (20.5-50.1) % Braxton % (Auto) (2-8) % Eos % (Auto) (1.0-3.0) % Baso % (Auto) (0.0-1.0) % D-Dimer, Quantitative (0-400) ng/mL Sodium (136-145) mmol/L Potassium (3.5-5.1) mmol/L Chloride (98-107) mmol/L Carbon Dioxide (21-32) mmol/L Anion Gap (7-13) mEq/L BUN (7-18) mg/dL Creatinine (0.55-1.02) mg/dL Est Cr Clr Drug Dosing mL/min Estimated GFR (MDRD) BUN/Creatinine Ratio (No establ ref range) Glucose (74-99) mg/dL Lactic Acid (0.4-2.0) mmol/L Calcium (8.5-10.1) mg/dL Total Bilirubin (0.2-1.0) mg/dL AST (15-37) U/L ALT (14-59) U/L Alkaline Phosphatase (46-116) U/L Troponin I (0.000-0.056) ng/mL B-Natriuretic Peptide (0-100) pg/ml Total Protein (6.4-8.2) g/dL Albumin (3.4-5.0) g/dL Globulin Albumin/Globulin Ratio Urine Color Yellow (YELLOW) Urine Appearance Clear (CLEAR) Urine pH 5.5 (5.0-9.0) Ur Specific [place] 1.025 (1.005-1.030) Urine Protein Negative (NEGATIVE) Urine Glucose (UA) Negative (NEGATIVE) Urine Ketones Negative (NEGATIVE) Urine Occult Blood Trace-intact H (NEGATIVE) Urine Nitrite Negative (NEGATIVE) Urine Bilirubin Negative (NEGATIVE) Urine Urobilinogen 0.2 (0.2-1.0) mg/dL Ur Leukocyte Esterase Negative (NEGATIVE) Urine RBC 0-5 /HPF Urine WBC 0-5 (0-5/HPF) /HPF Ur Epithelial Cells Occasional (NOT SEEN) /HPF Urine Bacteria Occasional (0-FEW/HPF) /HPF Influenza Type A RNA (NEGATIVE) Influenza Type B RNA (NEGATIVE) SARS-CoV-2 RNA (ROSA) (NEGATIVE) Meds: Medications Discontinued Medications Generic Name Dose Route Start Last Admin Trade Name Freq PRN Reason Stop Dose Admin Methylprednisolone Sodium Succinate 125 mg 04/12/20 03:07 04/12/20 03:22 Solu-Medrol IVPUSH 04/12/20 03:08 125 mg ONETIME ONE Administration - Re-Assessments/Exams Free Text/Narrative Re-Assessment/Exam: 04/12/20 04:20 Some improvement with Solumedrol, Continued frequent cough productive. frothy white to green phlegm. Dyspneic with minimal activity. Conversations limited 3- [address] Parks accepting for admission. Departure - Departure Time of Disposition: 04:17 Disposition: Admitted As Inpatient 66 Condition: Good Clinical Impression: Acute respiratory failure with hypoxemia, COPD with acute exacerbation, Hiatal hernia - Discharge Information *PRESCRIPTION DRUG MONITORING PROGRAM REVIEWED*: No *COPY OF PRESCRIPTION DRUG MONITORING REPORT IN PATIENT FRANCO: No Sepsis Event Note (ED) - Focused Exam Vital Signs: Vital Signs Temp Pulse Resp BP Pulse Ox Pulse Ox 04/12/20 03:14 93 L 04/12/20 03:02 98.2 F 89 18 134/84 85 L - My Orders Last 24 Hours: My Active Orders 04/12/20 02:50 EKG Documentation Completion [RC] URGENT 04/12/20 04:24 Code Status [Resuscitation Status] Stat - Assessment/Plan Last 24 Hours: My Active Orders 04/12/20 02:50 EKG Documentation Completion [RC] URGENT 04/12/20 04:24 Code Status [Resuscitation Status] Stat
[2020-04-12] MEDS ORDERED: methylPREDNISolone Sodium Succinate 125 MG/2 ML SDV IVPUSH ONE (03:07)
[2020-04-12 03:31] LABS: CHLORIDE,CL 106 mmol/L (98-107); SODIUM,NA 144 mmol/L (136-145)
[2020-04-12 03:46] LABS: CORONAVIRUS COVID-19 NAA NEGATIVE (NEGATIVE)
--- NOTE | 2020-04-12 03:55 | CR ---
PROCEDURE INFORMATION: Exam: XR Chest Exam date and time: 04/12/2020 3:35 AM Age: 59 years old Clinical indication: Shortness of breath; Additional info: Cough TECHNIQUE: Imaging protocol: XR of the chest Views: 2 views. COMPARISON: CR Chest 2V 02/06/2019 11:44 AM FINDINGS: Lungs: See "Heart/Mediastinum" finding. Pleural spaces: Unremarkable. No pleural effusion. No pneumothorax. Heart/Mediastinum: There is a large hiatal hernia present. It measures approximately 12.1 cm transverse dimension. Strandy opacities superimposed over the hiatal hernia likely representing atelectasis. However, a bilateral basilar pneumonitis cannot be entirely excluded. Bones/joints: Unremarkable. IMPRESSION: 1. Prominent hiatal hernia 2. Strandy opacities superimposed over the hiatal hernia likely representing atelectasis although bilateral basilar pneumonitis cannot be entirely excluded.
[2020-04-12] MEDS ORDERED: Acetaminophen 325 MG Tab PO PRN (06:39)
[2020-04-12] MEDS ORDERED: Albuterol/Ipratropium 3.0-0.5 MG/3 ML Neb Soln NEB PRN (06:57)
--- NOTE | 2020-04-12 07:01 | PCM.HP ---
H&P History of Present Illness - General Date of Service: 04/12/20 Admit Problem/Dx: Admission Diagnosis/Problem Admission Diagnosis/Problem COPD, Moderate chronic obstructive pulmonary disease - History of Present Illness Initial Comments - Free Text/Narative: 59F w/ pmh COPD, asthma, GERD, hiatal hernia, anxiety, morbid obesity, LAKESHIA, hypothyroidism, HL, CAD s/p [place] in 2016 p/w respiratory distress. Pt has been having coughing and dyspnea worsening for 4 days. 2 days ago she was prescribed a medrol dose pack. She came in today in setting of incessant coughing fit and dyspnea. ER evaluation found her wheezing w/ room air sats in mid 80s. At baseline she is not o2 dependent. Additionally she reports nausea and vomiting for one day after eating chili. No abdominal pain. No fevers. Bilateral Chest Pain Score (Numeric/FACES): 3 - Related Data Allergies/Adverse Reactions: Allergies Allergy/AdvReac Type Severity Reaction Status Date / Time cephalexin monohydrate Allergy Rash Verified 04/12/20 03:02 [From Keflex] codeine Allergy Hives Verified 04/12/20 03:02 hydroxyzine Allergy Cannot Verified 04/12/20 03:02 Remember pantoprazole [From Protonix] Allergy Tremors Verified 04/12/20 03:02 propoxyphene napsylate Allergy Cannot Verified 04/12/20 03:02 [From Darvocet-N] Remember ondansetron AdvReac Intermediate Other Verified 04/12/20 03:02 Home Medications: Home Meds Montelukast [Singulair] 10 mg PO DAILY 08/23/13 [History] Mometasone/Formoterol [Dulera 200 MCG/5 MCG] 2 puff INH BID 12/09/14 [History] Benzonatate [Tessalon Perles] 100 mg PO DAILY 05/15/15 [History] Diclofenac Sodium [Voltaren 1% Gel] 1 applic TOP ASDIRECTED PRN 01/26/17 [History] Fluticasone Propionate [Flonase Allergy Relief] 1 - 2 spray NASBOTH DAILY 01/26/17 [History] atorvaSTATin [Lipitor] 20 mg PO DAILY 01/26/17 [History] Omeprazole 20 mg PO BID 01/27/17 [History] DULoxetine HCl [Cymbalta] 30 mg PO DAILY 10/28/17 [History] Nitroglycerin [Nitrostat] 0.4 mg PO ASDIRECTED PRN 10/28/17 [History] Albuterol/Ipratropium [DuoNeb 3.0-0.5 MG/3 ML] 3 ml NEB BID PRN 03/29/18 [History] Benzonatate [Tessalon Perle] 100 mg PO DAILY PRN 04/12/20 [History] Cyclobenzaprine [Flexeril] 5 mg PO BEDTIME 04/12/20 [History] Docusate Sodium [Colace 50 MG/5 ML Liquid] 5 ml PO DAILY PRN 04/12/20 [History] Levothyroxine [Synthroid] 100 mcg PO ACBREAKFAST 04/12/20 [History] Past Medical History HEENT History: Reports: Allergic Rhinitis, Impaired Vision, Sinusitis Other HEENT History: wears glasses but not her at this time Cardiovascular History: Reports: High Cholesterol, [place] Other Cardiovascular History: HX OF CHEST PAIN AT REST, Last used Nitro 2-3 months ago, [place] 2015 Respiratory History: Reports: Asthma, COPD, SOB Gastrointestinal History: Reports: Chronic Constipation, GERD, Hiatal Hernia Other Gastrointestinal History: S/P GASTRIC EROSIONS Genitourinary History: Reports: None TITLE I COORDINATOR History: Reports: Other OB/BYN History: 4 nvd Musculoskeletal History: Reports: Arthritis, Fracture, Other (See Below) Other Musculoskeletal History: foot Neurological History: Reports: None Psychiatric History: Reports: Anxiety Endocrine/Metabolic History: Reports: Hypothyroidism, Obesity/BMI 30+ Hematologic History: Reports: Blood Transfusion(s), Iron Deficiency Immunologic History: Reports: None Oncologic (Cancer) History: Reports: None Dermatologic History: Reports: None - Infectious Disease History Infectious Disease History: Reports: Chicken Pox, Measles - Past Surgical History Head Surgeries/Procedures: Reports: None HEENT Surgical History: Reports: Adenoidectomy, Tonsillectomy Cardiovascular Surgical History: Reports: None Respiratory Surgical History: Reports: None GI Surgical History: Reports: Bariatric Procedure, Cholecystectomy, EGD, Hernia Repair/Other, Fernando Fundoplication, Other (See Below) Other GI Surgeries/Procedures: laser surgery on gallbladder. S/P GASTRECTOMY Female Surgical History: Reports: Hysterectomy Other Female Surgeries/Procedures: partial hysterectomy Endocrine Surgical History: Reports: None Neurological Surgical History: Reports: None Musculoskeletal Surgical History: Reports: Other (See Below) Other Musculoskeletal Surgeries/Procedures:: SCREW LEFT BUNION REPAIR, left foot reconstruction. Screw right Bunion repair Oncologic Surgical History: Reports: None Dermatological Surgical History: Reports: None Social & Family History - Family History Family Medical History: No Pertinent Family History Cardiac: Reports: CAD, Heart Failure, High Cholesterol, Hypertension, [place] Respiratory: Reports: Asthma, COPD GI: Reports: GERD : Reports: Renal Disease/Insufficiency Musculoskeletal: Reports: Arthritis, Back pain, Chronic Neurological: Reports: CVA Endocrine/Metabolic: Reports: Diabetes, type II, Obesity/MBI 30+ Oncologic: Reports: Other (See Below) Other Oncologic Family History: MOTHER HAD STOMACH CA. - Tobacco Use Tobacco Use Status *Q: Former Tobacco User Years of Tobacco use: 40 Packs/Tins Daily: 1 Used Tobacco, but Quit: Yes Month/Year Tobacco Last Used: Dec 2019 Second Hand Smoke Exposure: Yes - Caffeine Use Caffeine Use: Reports: Coffee, Tea Other Caffeine Use: COFFEE AVERAGE OF 6 CUPS DAILY - Recreational Drug Use Recreational Drug Use: No - Living Situation & Occupation Living situation: Reports: with Family Occupation: Unemployed H&P Review of Systems - Review of Systems: Review Of Systems: See Below Free Text/Narrative: negative for 14 systems except as specifically mentioned in HPI Exam - Exam Exam: See Below - Vital Signs Vital Signs: Last Vital Signs Temp 96.4 F L 04/12/20 04:45 Pulse 77 04/12/20 04:45 Resp 22 H 04/12/20 04:45 BP 139/60 04/12/20 04:45 Pulse Ox 97 04/12/20 04:45 Weight: 225 lb 9.6 oz - Exam Quality Assessment: Supplemental Oxygen (2L) General: Alert, Oriented, Cooperative, Other (no distress) HEENT: Conjunctiva Clear Neck: Supple Lungs: Wheezing (tight and diffuse) Cardiovascular: Regular Rate, Regular Rhythm GI/Abdominal Exam: Normal Bowel Sounds, Soft, Non-Tender, No Distention, Other (morbidly obese) Back Exam: Normal Inspection Extremities: Normal Inspection, Normal Range of Motion, No Pedal Edema Skin: Warm, Dry, Intact Neurological: Cranial Nerves Intact Neuro Extensive - Mental Status: Alert, Oriented x3, Normal Mood/Affect, Memory Intact Psychiatric: Alert, Normal Affect, Normal Mood - Patient Data Lab Results Last 24 hrs: Laboratory Results - last 24 hr 04/12/20 04/12/20 04/12/20 Range/Units 03:00 03:00 03:00 WBC 10.9 H (5.0-10.0) 10^3/uL RBC 4.62 (4.2-5.4) 10^6/uL Hgb 11.8 L (12.0-16.0) g/dL Hct 38.2 (37.0-47.0) % MCV 82.7 D (80-100) fL MCH 25.5 L (27.0-34.0) pg MCHC 30.9 L (33.0-35.0) g/dL Plt Count 297 (150-450) 10^3/uL Neut % (Auto) 85.7 H (42.2-75.2) % Lymph % (Auto) 10.1 L (20.5-50.1) % [place] % (Auto) 3.6 (2-8) % Eos % (Auto) 0.1 L (1.0-3.0) % Baso % (Auto) 0.5 (0.0-1.0) % D-Dimer, Quantitative < 100 (0-400) ng/mL Sodium 144 (136-145) mmol/L Potassium 4.0 (3.5-5.1) mmol/L Chloride 106 (98-107) mmol/L Carbon Dioxide 24 (21-32) mmol/L Anion Gap 18.0 H (7-13) mEq/L BUN 28 H (7-18) mg/dL Creatinine 0.89 (0.55-1.02) mg/dL Est Cr Clr Drug Dosing 53.83 mL/min Estimated GFR (MDRD) > 60 BUN/Creatinine Ratio 31.5 (No establ ref range) Glucose 135 H (74-99) mg/dL Lactic Acid (0.4-2.0) mmol/L Calcium 8.7 (8.5-10.1) mg/dL Total Bilirubin 0.4 (0.2-1.0) mg/dL AST 16 (15-37) U/L ALT 39 (14-59) U/L Alkaline Phosphatase 87 (46-116) U/L Troponin I < 0.017 (0.000-0.056) ng/mL B-Natriuretic Peptide (0-100) pg/ml Total Protein 7.3 (6.4-8.2) g/dL Albumin 3.9 (3.4-5.0) g/dL Globulin 3.4 Albumin/Globulin Ratio 1.1 Urine Color (YELLOW) Urine Appearance (CLEAR) Urine pH (5.0-9.0) Ur Specific [place] (1.005-1.030) Urine Protein (NEGATIVE) Urine Glucose (UA) (NEGATIVE) Urine Ketones (NEGATIVE) Urine Occult Blood (NEGATIVE) Urine Nitrite (NEGATIVE) Urine Bilirubin (NEGATIVE) Urine Urobilinogen (0.2-1.0) mg/dL Ur Leukocyte Esterase (NEGATIVE) Urine RBC /HPF Urine WBC (0-5/HPF) /HPF Ur Epithelial Cells (NOT SEEN) /HPF Urine Bacteria (0-FEW/HPF) /HPF Influenza Type A RNA (NEGATIVE) Influenza Type B RNA (NEGATIVE) SARS-CoV-2 RNA (ROSA) (NEGATIVE) 04/12/20 04/12/20 04/12/20 Range/Units 03:00 03:00 03:08 WBC (5.0-10.0) 10^3/uL RBC (4.2-5.4) 10^6/uL Hgb (12.0-16.0) g/dL Hct (37.0-47.0) % MCV (80-100) fL MCH (27.0-34.0) pg MCHC (33.0-35.0) g/dL Plt Count (150-450) 10^3/uL Neut % (Auto) (42.2-75.2) % Lymph % (Auto) (20.5-50.1) % [place] % (Auto) (2-8) % Eos % (Auto) (1.0-3.0) % Baso % (Auto) (0.0-1.0) % D-Dimer, Quantitative (0-400) ng/mL Sodium (136-145) mmol/L Potassium (3.5-5.1) mmol/L Chloride (98-107) mmol/L Carbon Dioxide (21-32) mmol/L Anion Gap (7-13) mEq/L BUN (7-18) mg/dL Creatinine (0.55-1.02) mg/dL Est Cr Clr Drug Dosing mL/min Estimated GFR (MDRD) BUN/Creatinine Ratio (No establ ref range) Glucose (74-99) mg/dL Lactic Acid 2.6 H* (0.4-2.0) mmol/L Calcium (8.5-10.1) mg/dL Total Bilirubin (0.2-1.0) mg/dL AST (15-37) U/L ALT (14-59) U/L Alkaline Phosphatase (46-116) U/L Troponin I (0.000-0.056) ng/mL B-Natriuretic Peptide 14 (0-100) pg/ml Total Protein (6.4-8.2) g/dL Albumin (3.4-5.0) g/dL Globulin Albumin/Globulin Ratio Urine Color (YELLOW) Urine Appearance (CLEAR) Urine pH (5.0-9.0) Ur Specific [place] (1.005-1.030) Urine Protein (NEGATIVE) Urine Glucose (UA) (NEGATIVE) Urine Ketones (NEGATIVE) Urine Occult Blood (NEGATIVE) Urine Nitrite (NEGATIVE) Urine Bilirubin (NEGATIVE) Urine Urobilinogen (0.2-1.0) mg/dL Ur Leukocyte Esterase (NEGATIVE) Urine RBC /HPF Urine WBC (0-5/HPF) /HPF Ur Epithelial Cells (NOT SEEN) /HPF Urine Bacteria (0-FEW/HPF) /HPF Influenza Type A RNA Negative (NEGATIVE) Influenza Type B RNA Negative (NEGATIVE) SARS-CoV-2 RNA (ROSA) Negative (NEGATIVE) 04/12/20 Range/Units 03:08 WBC (5.0-10.0) 10^3/uL RBC (4.2-5.4) 10^6/uL Hgb (12.0-16.0) g/dL Hct (37.0-47.0) % MCV (80-100) fL MCH (27.0-34.0) pg MCHC (33.0-35.0) g/dL Plt Count (150-450) 10^3/uL Neut % (Auto) (42.2-75.2) % Lymph % (Auto) (20.5-50.1) % [place] % (Auto) (2-8) % Eos % (Auto) (1.0-3.0) % Baso % (Auto) (0.0-1.0) % D-Dimer, Quantitative (0-400) ng/mL Sodium (136-145) mmol/L Potassium (3.5-5.1) mmol/L Chloride (98-107) mmol/L Carbon Dioxide (21-32) mmol/L Anion Gap (7-13) mEq/L BUN (7-18) mg/dL Creatinine (0.55-1.02) mg/dL Est Cr Clr Drug Dosing mL/min Estimated GFR (MDRD) BUN/Creatinine Ratio (No establ ref range) Glucose (74-99) mg/dL Lactic Acid (0.4-2.0) mmol/L Calcium (8.5-10.1) mg/dL Total Bilirubin (0.2-1.0) mg/dL AST (15-37) U/L ALT (14-59) U/L Alkaline Phosphatase (46-116) U/L Troponin I (0.000-0.056) ng/mL B-Natriuretic Peptide (0-100) pg/ml Total Protein (6.4-8.2) g/dL Albumin (3.4-5.0) g/dL Globulin Albumin/Globulin Ratio Urine Color Yellow (YELLOW) Urine Appearance Clear (CLEAR) Urine pH 5.5 (5.0-9.0) Ur Specific [place] 1.025 (1.005-1.030) Urine Protein Negative (NEGATIVE) Urine Glucose (UA) Negative (NEGATIVE) Urine Ketones Negative (NEGATIVE) Urine Occult Blood Trace-intact H (NEGATIVE) Urine Nitrite Negative (NEGATIVE) Urine Bilirubin Negative (NEGATIVE) Urine Urobilinogen 0.2 (0.2-1.0) mg/dL Ur Leukocyte Esterase Negative (NEGATIVE) Urine RBC 0-5 /HPF Urine WBC 0-5 (0-5/HPF) /HPF Ur Epithelial Cells Occasional (NOT SEEN) /HPF Urine Bacteria Occasional (0-FEW/HPF) /HPF Influenza Type A RNA (NEGATIVE) Influenza Type B RNA (NEGATIVE) SARS-CoV-2 RNA (ROSA) (NEGATIVE) Result Diagrams: 04/12/20 03:00 04/12/20 03:00 Problem List Initiated/Reviewed/Updated: No Orders Last 24hrs: Active Orders 24 hr Category Date Time Status Patient Status [ADT] Routine ADT 04/12/20 04:31 Active Patient Status [ADT] Routine ADT 04/12/20 06:39 Ordered Antiembolic Devices [RC] PER UNIT ROUTINE Care 04/12/20 06:42 Ordered Oxygen Therapy [RC] PRN Care 04/12/20 06:39 Ordered RT Aerosol Therapy [RC] ASDIRECTED Care 04/12/20 06:58 Ordered RT Post Treatment Assessment [RC] Click to Edit Care 04/12/20 06:58 Ordered RT Pre-Treatment Assessment [RC] Click to Edit Care 04/12/20 06:58 Ordered Up ad Faith [RC] ASDIRECTED Care 04/12/20 06:39 Ordered VTE/DVT Education [RC] PER UNIT ROUTINE Care 04/12/20 06:39 Ordered Vital Signs [RC] Q4H Care 04/12/20 06:39 Ordered Heart Healthy Diet [DIET] Diet 04/12/20 Breakfast Ordered Acetaminophen [TylenoL] Med 04/12/20 06:39 Ordered 650 mg PO Q4H PRN Albuterol/Ipratropium [DuoNeb 3.0-0.5 MG/3 ML] Med 04/12/20 06:57 Ordered 3 ml NEB Q2H PRN Albuterol/Ipratropium [DuoNeb 3.0-0.5 MG/3 ML] Med 04/12/20 09:00 Ordered 3 ml NEB QID Cyclobenzaprine [Flexeril] Med 04/12/20 21:00 Ordered 5 mg PO BEDTIME DULoxetine [Cymbalta] Med 04/12/20 09:00 Ordered 30 mg PO DAILY Enoxaparin [Lovenox] Med 04/12/20 09:00 Ordered 40 mg SUBCUT DAILY Levothyroxine [Synthroid] Med 04/13/20 06:00 Ordered 100 mcg PO ACBREAKFAST Montelukast [Singulair] Med 04/12/20 09:00 Ordered 10 mg PO DAILY Omeprazole [Omeprazole] Med 04/12/20 09:00 Ordered 20 mg PO BID Tiotropium [Spiriva HandiHaler] Med 04/12/20 09:00 Ordered 18 mcg INH DAILY atorvaSTATin [Lipitor] Med 04/12/20 09:00 Ordered 20 mg PO DAILY levoFLOXacin [Levaquin] Med 04/12/20 09:00 Ordered 500 mg PO DAILY methylPREDNISolone Sod Succ [Solu-MEDROL] Med 04/12/20 18:00 Ordered 40 mg IVPUSH Q6H Antiembolic Hose [OM.PC] Per Unit Routine Oth 04/12/20 06:40 Ordered Resuscitation Status Routine Resus Stat 04/12/20 06:39 Ordered Medication Orders Acetaminophen (Tylenol) 650 mg PO Q4H PRN PRN Reason: Pain (Mild 1-3)/fever Albuterol/Ipratropium (Duoneb 3.0-0.5 Mg/3 Ml) 3 ml NEB Q2H PRN PRN Reason: Wheezing Albuterol/Ipratropium (Duoneb 3.0-0.5 Mg/3 Ml) 3 ml NEB QID [facility]ACE[facility] Atorvastatin Calcium (Lipitor) 20 mg PO DAILY [facility] Duloxetine HCl (Cymbalta) 30 mg PO DAILY [facility] Enoxaparin Sodium (Lovenox) 40 mg SUBCUT DAILY [facility] Levothyroxine Sodium (Synthroid) 100 mcg PO ACBREAKFAST [facility] Methylprednisolone Sodium Succinate (Solu-Medrol) 40 mg IVPUSH Q6H [facility] Montelukast Sodium (Singulair) 10 mg PO DAILY [facility] Non-Formulary Medication (Cyclobenzaprine [Flexeril]) 5 mg PO BEDTIME [facility]ACEY Non-Formulary Medication (Omeprazole [Omeprazole]) 20 mg PO BID TRACE[facility] Tiotropium [place] (Spiriva Handihaler) 18 mcg INH DAILY TRACEY Assessment/Plan Comment:: #acute hypoxic respiratory failure 2/2 COPD exacerbation - standing and prn duonebs, IV solumedrol, spriva, o2 supp prn, LQ - expect a prolonged hospital stay #lactic acidosis - no apparent source apart from serial nebulizers #GERD / hiatal hernia / hypothyroidism / CAD / [place] - c/w home meds PPX - LMWH Full code
[2020-04-12] MEDS: Albuterol/Ipratropium 3.0-0.5 MG/3 ML Neb Soln NEB SCH ×4 (07:35→20:28)
[2020-04-12] MEDS: Montelukast 10 MG Tab PO SCH (09:06)
[2020-04-12] MEDS: DULoxetine 30 MG Cap PO SCH (09:06)
[2020-04-12] MEDS: Levofloxacin 500 MG Tab PO SCH (09:06)
[2020-04-12] MEDS: Omeprazole 20 MG Cap.CR PO SCH ×2 (09:06→17:30)
[2020-04-12] MEDS: Levothyroxine 100 MCG Tab PO SCH (09:06)
[2020-04-12] MEDS: atorvaSTATin 20 MG Tab PO SCH (09:06)
[2020-04-12] MEDS: Tiotropium Inhaler 18 MCG Inhalation Powder Cap Kit of 5 INH SCH (09:07)
[2020-04-12] MEDS: Enoxaparin 40 MG/0.4 ML Syringe SUBCUT SCH (09:07)
[2020-04-12] MEDS: Acetaminophen 500 MG Tab PO SCH ×2 (09:41→17:30)
[2020-04-12] MEDS: guaiFENesin 600 MG Tab.ER PO SCH ×3 (11:21→20:27)
[2020-04-12] MEDS ORDERED: Nitroglycerin 0.4 MG Tab.SL SL ONE (12:43)
[2020-04-12] MEDS ORDERED: Nitroglycerin 0.4 MG Tab.SL ONE (12:45)
[2020-04-12] MEDS: methylPREDNISolone Sodium Succinate 40 MG/1 ML SDV IVPUSH SCH (17:32)
[2020-04-12] MEDS: Cyclobenzaprine 10 MG Tab PO SCH (20:28)
[2020-04-13] MEDS: methylPREDNISolone Sodium Succinate 40 MG/1 ML SDV IVPUSH SCH ×4 (00:17→21:20)
[2020-04-13] MEDS: Acetaminophen 500 MG Tab PO SCH ×4 (00:17→23:55)
[2020-04-13] MEDS: Omeprazole 20 MG Cap.CR PO SCH ×2 (05:18→16:49)
[2020-04-13] MEDS: Levothyroxine 100 MCG Tab PO SCH (05:18)
[2020-04-13 06:09] LABS: ANION GAP 16.4 mEq/L (7-13); CHLORIDE,CL 106 mmol/L (98-107); SODIUM,NA 144 mmol/L (136-145)
[2020-04-13] MEDS: DULoxetine 30 MG Cap PO SCH (08:34)
[2020-04-13] MEDS: Levofloxacin 500 MG Tab PO SCH (08:34)
[2020-04-13] MEDS: Montelukast 10 MG Tab PO SCH (08:37)
[2020-04-13] MEDS: atorvaSTATin 20 MG Tab PO SCH (08:37)
[2020-04-13] MEDS: Aspirin 81 MG Tab.EC PO SCH (08:37)
[2020-04-13] MEDS: Tiotropium Inhaler 18 MCG Inhalation Powder Cap Kit of 5 INH SCH (08:38)
[2020-04-13] MEDS: Enoxaparin 40 MG/0.4 ML Syringe SUBCUT SCH (08:38)
[2020-04-13] MEDS: guaiFENesin 600 MG Tab.ER PO SCH ×3 (08:43→21:19)
[2020-04-13] MEDS: Albuterol/Ipratropium 3.0-0.5 MG/3 ML Neb Soln NEB SCH ×4 (09:03→21:20)
--- NOTE | 2020-04-13 11:49 | PCM.PN ---
- General Info Date of Service: 04/13/20 Admission Dx/Problem (Free Text): Had episode of chest pain yesterday afternoon - EKG non ischemic / trops neg. Today much improved in terms of dyspnea and wheezing. Ambulating on room air. - Review of Systems Systems Review Comment:: negative for 14 systems except as noted above - Patient Data Vitals - Most Recent: Last Vital Signs Temp 97.6 F 04/13/20 11:33 Pulse 71 04/13/20 11:33 Resp 16 04/13/20 11:33 BP 124/71 04/13/20 11:33 Pulse Ox 93 L 04/13/20 11:33 Weight - Most Recent: 225 lb 9.6 oz I&O - Last 24 Hours: Intake & Output 04/12/20 04/13/20 04/13/20 22:59 06:59 14:59 Intake Total 670 500 Balance 670 500 Lab Results Last 24 Hours: Laboratory Results - last 24 hr 04/12/20 04/12/20 04/13/20 Range/Units 13:04 17:56 05:30 Sodium 144 (136-145) mmol/L Potassium 4.4 (3.5-5.1) mmol/L Chloride 106 (98-107) mmol/L Carbon Dioxide 26 (21-32) mmol/L Anion Gap 16.4 H (7-13) mEq/L BUN 17 (7-18) mg/dL Creatinine 0.76 (0.55-1.02) mg/dL Est Cr Clr Drug Dosing 63.04 mL/min Estimated GFR (MDRD) > 60 Glucose 150 H (74-99) mg/dL Calcium 8.7 (8.5-10.1) mg/dL Troponin I < 0.017 < 0.017 (0.000-0.056) ng/mL Med Orders - Current: Current Medications Acetaminophen (Tylenol Extra Strength) 1,000 mg PO Q8H [facility] Last Admin: 04/13/20 08:35 Dose: 1,000 mg Documented by: Albuterol/Ipratropium (Duoneb 3.0-0.5 Mg/3 Ml) 3 ml NEB Q2H PRN PRN Reason: Wheezing Albuterol/Ipratropium (Duoneb 3.0-0.5 Mg/3 Ml) 3 ml NEB QIDRT [facility] Last Admin: 04/13/20 09:03 Dose: 3 ml Documented by: Aspirin (Halfprin) 81 mg PO WITHBREAKFAST [facility] Last Admin: 04/13/20 08:37 Dose: 81 mg Documented by: Atorvastatin Calcium (Lipitor) 20 mg PO DAILY [facility] Last Admin: 04/13/20 08:37 Dose: 20 mg Documented by: Cyclobenzaprine HCl (Flexeril) 5 mg PO BEDTIME [facility] Last Admin: 04/12/20 20:28 Dose: 5 mg Documented by: Duloxetine HCl (Cymbalta) 30 mg PO DAILY [facility] Last Admin: 04/13/20 08:34 Dose: 30 mg Documented by: Enoxaparin Sodium (Lovenox) 40 mg SUBCUT DAILY [facility] Last Admin: 04/13/20 08:38 Dose: 40 mg Documented by: Guaifenesin (Mucinex) 600 mg PO TID [facility] Last Admin: 04/13/20 08:43 Dose: 600 mg Documented by: Levofloxacin (Levaquin) 500 mg PO DAILY [facility] Last Admin: 04/13/20 08:34 Dose: 500 mg Documented by: Levothyroxine Sodium (Synthroid) 100 mcg PO ACBREAKFAST [facility] Last Admin: 04/13/20 05:18 Dose: 100 mcg Documented by: Methylprednisolone Sodium Succinate (Solu-Medrol) 40 mg IVPUSH Q8H [facility] Montelukast Sodium (Singulair) 10 mg PO DAILY [facility] Last Admin: 04/13/20 08:37 Dose: 10 mg Documented by: Omeprazole (Omeprazole) 20 mg PO BIDAC [facility] Last Admin: 04/13/20 05:18 Dose: 20 mg Documented by: Tiotropium [place] (Spiriva Handihaler) 18 mcg INH DAILY [facility] Last Admin: 04/13/20 08:38 Dose: 18 mcg Documented by: Discontinued Medications Acetaminophen (Tylenol) 650 mg PO Q4H PRN PRN Reason: Pain (Mild 1-3)/fever Methylprednisolone Sodium Succinate (Solu-Medrol) 125 mg IVPUSH ONETIME ONE Stop: 04/12/20 03:08 Last Admin: 04/12/20 03:22 Dose: 125 mg Documented by: Methylprednisolone Sodium Succinate (Solu-Medrol) 40 mg IVPUSH Q6H [facility] Last Admin: 04/13/20 05:18 Dose: 40 mg Documented by: Nitroglycerin (Nitrostat) 0.4 mg SL ONETIME ONE Stop: 04/12/20 12:44 Last Admin: 04/12/20 12:49 Dose: 0.4 mg Documented by: Nitroglycerin (Nitrostat) Confirm Administered Dose 0.4 mg .ROUTE .STK-MED ONE Stop: 04/12/20 12:46 Last Admin: 04/12/20 13:59 Dose: Not Given Documented by: - Exam Quality Assessment: No: Supplemental Oxygen General: Alert, Oriented, Cooperative HEENT: Pupils Equal Neck: Supple Lungs: Clear to Auscultation, Normal Respiratory Effort Cardiovascular: Regular Rate, Regular Rhythm GI/Abdominal Exam: Normal Bowel Sounds, Soft, Non-Tender, No Distention, Other (morbidly obese) Back Exam: Normal Inspection Extremities: No Pedal Edema Skin: Warm, Dry, Intact Neurological: No New Focal Deficit Psy/Mental Status: Alert, Normal Affect, Normal Mood - Patient Data Lab Results Last 24 hrs: Laboratory Results - last 24 hr 04/12/20 04/12/20 04/13/20 Range/Units 13:04 17:56 05:30 Sodium 144 (136-145) mmol/L Potassium 4.4 (3.5-5.1) mmol/L Chloride 106 (98-107) mmol/L Carbon Dioxide 26 (21-32) mmol/L Anion Gap 16.4 H (7-13) mEq/L BUN 17 (7-18) mg/dL Creatinine 0.76 (0.55-1.02) mg/dL Est Cr Clr Drug Dosing 63.04 mL/min Estimated GFR (MDRD) > 60 Glucose 150 H (74-99) mg/dL Calcium 8.7 (8.5-10.1) mg/dL Troponin I < 0.017 < 0.017 (0.000-0.056) ng/mL Result Diagrams: 04/12/20 03:00 04/13/20 05:30 Sepsis Event Note - Evaluation Sepsis Screening Result: No Definite Risk - Focused Exam Vital Signs: Vital Signs Temp Pulse Resp BP BP Pulse Ox Pulse Ox 04/13/20 11:33 97.6 F 71 16 124/71 93 L 04/13/20 09:00 69 92 L 04/13/20 08:00 97.6 F 71 18 124/53 L 95 04/13/20 04:33 97.5 F 65 20 131/54 L 94 L 04/13/20 00:36 98.7 F 68 18 131/60 94 L - Problem List Review Problem List Initiated/Reviewed/Updated: No - My Orders Last 24 Hours: My Active Orders 04/12/20 12:38 EKG 12 Lead [EKG Documentation Completion] [RC] STAT 04/12/20 21:00 Cyclobenzaprine [Flexeril] 5 mg PO BEDTIME 04/13/20 08:00 Aspirin [Halfprin] 81 mg PO WITHBREAKFAST 04/13/20 08:51 Consult to Physical Therapy [PT Evaluation and Treatment] [CONS] Routine 04/13/20 14:00 methylPREDNISolone Sod Succ [Solu-MEDROL] 40 mg IVPUSH Q8H - Plan Plan:: #acute hypoxic respiratory failure 2/2 COPD exacerbation - c/w standing and prn duonebs, spriva, o2 supp prn, LQ - taper IV solumedrol q6h >>> q8h - improving #lactic acidosis - no apparent source apart from serial nebulizers #GERD / hiatal hernia / hypothyroidism / CAD / HL - c/w home meds PPX - LMWH Full code
[2020-04-13] MEDS: Sodium Chloride 0.9% 10 ML Syringe FLUSH PRN ×2 (14:10→21:20)
[2020-04-13] MEDS: Cyclobenzaprine 10 MG Tab PO SCH (21:19)
[2020-04-14] MEDS: Acetaminophen 500 MG Tab PO SCH ×3 (00:14→16:27)
[2020-04-14] MEDS: Levothyroxine 100 MCG Tab PO SCH (05:47)
[2020-04-14] MEDS: Sodium Chloride 0.9% 10 ML Syringe FLUSH PRN (05:47)
[2020-04-14] MEDS: methylPREDNISolone Sodium Succinate 40 MG/1 ML SDV IVPUSH SCH (05:47)
[2020-04-14] MEDS: Omeprazole 20 MG Cap.CR PO SCH ×2 (05:47→16:27)
[2020-04-14] MEDS: Albuterol/Ipratropium 3.0-0.5 MG/3 ML Neb Soln NEB SCH ×4 (07:11→20:46)
[2020-04-14] MEDS: Enoxaparin 40 MG/0.4 ML Syringe SUBCUT SCH (09:09)
[2020-04-14] MEDS: Montelukast 10 MG Tab PO SCH (09:10)
[2020-04-14] MEDS: atorvaSTATin 20 MG Tab PO SCH (09:10)
[2020-04-14] MEDS: Aspirin 81 MG Tab.EC PO SCH (09:10)
[2020-04-14] MEDS: DULoxetine 30 MG Cap PO SCH (09:10)
[2020-04-14] MEDS: Levofloxacin 500 MG Tab PO SCH (09:10)
[2020-04-14] MEDS: guaiFENesin 600 MG Tab.ER PO SCH ×3 (09:12→20:58)
[2020-04-14] MEDS: Tiotropium Inhaler 18 MCG Inhalation Powder Cap Kit of 5 INH SCH (10:34)
--- NOTE | 2020-04-14 11:00 | PCM.PN ---
- General Info Date of Service: 04/14/20 Admission Dx/Problem (Free Text): Feeling good. Occ relapse of dyspnea. Still coughing up thick mucus plugs. Ambulating. - Review of Systems Systems Review Comment:: negative for 14 systems except as specifically noted above - Patient Data Vitals - Most Recent: Last Vital Signs Temp 97.7 F 04/14/20 08:00 Pulse 71 04/14/20 08:00 Resp 20 04/14/20 08:00 BP 128/58 L 04/14/20 08:00 Pulse Ox 93 L 04/14/20 08:00 Weight - Most Recent: 225 lb 9.6 oz I&O - Last 24 Hours: Intake & Output 04/13/20 04/14/20 04/14/20 22:59 06:59 14:59 Intake Total 900 400 Balance 900 400 Med Orders - Current: Current Medications Acetaminophen (Tylenol Extra Strength) 1,000 mg PO Q8H [facility] Last Admin: 04/14/20 09:10 Dose: 1,000 mg Documented by: Albuterol/Ipratropium (Duoneb 3.0-0.5 Mg/3 Ml) 3 ml NEB Q2H PRN PRN Reason: Wheezing Albuterol/Ipratropium (Duoneb 3.0-0.5 Mg/3 Ml) 3 ml NEB QIDRT [facility] Last Admin: 04/14/20 07:11 Dose: 3 ml Documented by: Aspirin (Halfprin) 81 mg PO WITHBREAKFAST [facility] Last Admin: 04/14/20 09:10 Dose: 81 mg Documented by: Atorvastatin Calcium (Lipitor) 20 mg PO DAILY [facility] Last Admin: 04/14/20 09:10 Dose: 20 mg Documented by: Cyclobenzaprine HCl (Flexeril) 5 mg PO BEDTIME [facility] Last Admin: 04/13/20 21:19 Dose: 5 mg Documented by: Duloxetine HCl (Cymbalta) 30 mg PO DAILY [facility] Last Admin: 04/14/20 09:10 Dose: 30 mg Documented by: Enoxaparin Sodium (Lovenox) 40 mg SUBCUT DAILY [facility] Last Admin: 04/14/20 09:09 Dose: 40 mg Documented by: Guaifenesin (Mucinex) 600 mg PO TID [facility] Last Admin: 04/14/20 09:12 Dose: 600 mg Documented by: Levofloxacin (Levaquin) 500 mg PO DAILY [facility] Last Admin: 04/14/20 09:10 Dose: 500 mg Documented by: Levothyroxine Sodium (Synthroid) 100 mcg PO ACBREAKFAST [facility] Last Admin: 04/14/20 05:47 Dose: 100 mcg Documented by: Methylprednisolone Sodium Succinate (Solu-Medrol) 40 mg IVPUSH Q12H [facility] Montelukast Sodium (Singulair) 10 mg PO DAILY [facility] Last Admin: 04/14/20 09:10 Dose: 10 mg Documented by: Omeprazole (Omeprazole) 20 mg PO BIDAC [facility] Last Admin: 04/14/20 05:47 Dose: 20 mg Documented by: Sodium Chloride (Saline Flush) 10 ml FLUSH ASDIRECTED PRN PRN Reason: Keep Vein Open Last Admin: 04/14/20 05:47 Dose: 10 ml Documented by: Tiotropium [place] (Spiriva Handihaler) 18 mcg INH DAILY [facility] Last Admin: 04/14/20 10:34 Dose: 18 mcg Documented by: Discontinued Medications Acetaminophen (Tylenol) 650 mg PO Q4H PRN PRN Reason: Pain (Mild 1-3)/fever Methylprednisolone Sodium Succinate (Solu-Medrol) 125 mg IVPUSH ONETIME ONE Stop: 04/12/20 03:08 Last Admin: 04/12/20 03:22 Dose: 125 mg Documented by: Methylprednisolone Sodium Succinate (Solu-Medrol) 40 mg IVPUSH Q6H [facility] Last Admin: 04/13/20 05:18 Dose: 40 mg Documented by: Methylprednisolone Sodium Succinate (Solu-Medrol) 40 mg IVPUSH Q8H [facility] Last Admin: 04/14/20 05:47 Dose: 40 mg Documented by: Nitroglycerin (Nitrostat) 0.4 mg SL ONETIME ONE Stop: 04/12/20 12:44 Last Admin: 04/12/20 12:49 Dose: 0.4 mg Documented by: Nitroglycerin (Nitrostat) Confirm Administered Dose 0.4 mg .ROUTE .STK-MED ONE Stop: 04/12/20 12:46 Last Admin: 04/12/20 13:59 Dose: Not Given Documented by: - Exam Quality Assessment: No: Supplemental Oxygen General: Alert, Oriented, Cooperative HEENT: Pupils Equal Neck: Supple Lungs: Wheezing (mild wheeze) Cardiovascular: Regular Rate, Regular Rhythm, No Murmurs GI/Abdominal Exam: Normal Bowel Sounds, Soft, Non-Tender, No Distention Back Exam: Normal Inspection Extremities: No Pedal Edema Skin: Warm, Dry Neurological: No New Focal Deficit Psy/Mental Status: Alert, Normal Affect, Normal Mood - Patient Data Result Diagrams: 04/12/20 03:00 04/13/20 05:30 Sepsis Event Note - Evaluation Sepsis Screening Result: No Definite Risk - Focused Exam Vital Signs: Vital Signs Temp Pulse Resp BP Pulse Ox 04/14/20 08:00 97.7 F 71 20 128/58 L 93 L 04/14/20 07:08 69 04/14/20 05:44 97.7 F 76 20 147/59 H 95 04/13/20 23:54 98.7 F 73 20 129/51 L 94 L - Problem List Review Problem List Initiated/Reviewed/Updated: No - My Orders Last 24 Hours: My Active Orders 04/13/20 14:00 Sodium Chloride 0.9% [Saline Flush] 10 ml FLUSH ASDIRECTED PRN 04/14/20 18:00 methylPREDNISolone Sod Succ [Solu-MEDROL] 40 mg IVPUSH Q12H - Plan Plan:: #acute hypoxic respiratory failure 2/2 COPD exacerbation - c/w standing and prn duonebs, spriva, o2 supp prn, LQ - taper IV solumedrol q8h >>> q12h - plan for d/c tomorrow on prednisone #lactic acidosis - no apparent source apart from serial nebulizers #GERD / hiatal hernia / hypothyroidism / CAD / HL - c/w home meds PPX - LMWH Full code
[2020-04-14] MEDS ORDERED: methylPREDNISolone Sodium Succinate 40 MG/1 ML SDV IVPUSH SCH (18:00)
[2020-04-14] MEDS: Cyclobenzaprine 10 MG Tab PO SCH (20:46)
[2020-04-15] MEDS: Acetaminophen 500 MG Tab PO SCH ×2 (00:49→09:21)
[2020-04-15] MEDS ORDERED: Omeprazole 20 MG Cap.CR PO ONE (06:00)
[2020-04-15] MEDS ORDERED: Levothyroxine 100 MCG Tab PO ONE (06:00)
[2020-04-15] MEDS: Albuterol/Ipratropium 3.0-0.5 MG/3 ML Neb Soln NEB SCH (07:44)
[2020-04-15] MEDS ORDERED: predniSONE 20 MG Tab PO SCH (08:00)
[2020-04-15] MEDS: Enoxaparin 40 MG/0.4 ML Syringe SUBCUT SCH (09:20)
[2020-04-15] MEDS: Aspirin 81 MG Tab.EC PO SCH (09:22)
[2020-04-15] MEDS: Levofloxacin 500 MG Tab PO SCH (09:22)
[2020-04-15] MEDS: Montelukast 10 MG Tab PO SCH (09:22)
[2020-04-15] MEDS: guaiFENesin 600 MG Tab.ER PO SCH (09:22)
[2020-04-15] MEDS: DULoxetine 30 MG Cap PO SCH (09:22)
[2020-04-15] MEDS: atorvaSTATin 20 MG Tab PO SCH (09:22)
[2020-04-15] MEDS: Tiotropium Inhaler 18 MCG Inhalation Powder Cap Kit of 5 INH SCH (10:22)
[2020-04-15 11:08] VITALS: BP 121/50; PULSE 59
--- NOTE | 2020-04-15 13:08 | PCM.DCSUM1 ---
Discharge Summary - Hospital Course Free Text/Narrative:: 59F w/ pmh COPD, asthma, GERD, hiatal hernia, anxiety, morbid obesity, LAKESHIA, hypothyroidism, HL, CAD s/p NV in 2016 p/w respiratory distress. Pt has been having coughing and dyspnea worsening for 4 days. 2 days ago she was prescribed a medrol dose pack. She came in today in setting of incessant coughing fit and dyspnea. ER evaluation found her wheezing w/ room air sats in mid 80s. At baseline she is not o2 dependent. She was treated w/ IV solumedrol, standing and scheduled nebs and levofloxacin for a COPD exacerbation. She improved rapidly. The hospital stay was uncomplicated. She was d/c on short course of prednisone. - Discharge Data Discharge Date: 04/15/20 Discharge Disposition: Home, Self-Care 01 Condition: Stable - Referral to Home Health Primary Care Physician: PCP Unobtainable - Discharge Plan *PRESCRIPTION DRUG MONITORING PROGRAM REVIEWED*: Not Applicable *COPY OF PRESCRIPTION DRUG MONITORING REPORT IN PATIENT FRANCO: Not Applicable Prescriptions/Med Rec: levoFLOXacin [Levaquin] 500 mg PO DAILY #3 tablet predniSONE 40 mg PO WITHBREAKFAST #6 tablet Tiotropium [Spiriva HandiHaler] 18 mcg INH DAILY #1 cap Home Medications: Home Meds Montelukast [Singulair] 10 mg PO DAILY 08/23/13 [History] Mometasone/Formoterol [Dulera 200 MCG/5 MCG] 2 puff INH BID 12/09/14 [History] Diclofenac Sodium [Voltaren 1% Gel] 1 applic TOP ASDIRECTED PRN 01/26/17 [History] Fluticasone Propionate [Flonase Allergy Relief] 1 - 2 spray NASBOTH DAILY 01/26/17 [History] atorvaSTATin [Lipitor] 20 mg PO DAILY 01/26/17 [History] Omeprazole 20 mg PO BID 01/27/17 [History] DULoxetine HCl [Cymbalta] 30 mg PO DAILY 10/28/17 [History] Nitroglycerin [Nitrostat] 0.4 mg PO ASDIRECTED PRN 10/28/17 [History] Albuterol/Ipratropium [DuoNeb 3.0-0.5 MG/3 ML] 3 ml NEB BID PRN 03/29/18 [History] Cyclobenzaprine [Flexeril] 5 mg PO BEDTIME 04/12/20 [History] Docusate Sodium [Colace 50 MG/5 ML Liquid] 5 ml PO DAILY PRN 04/12/20 [History] Levothyroxine [Synthroid] 100 mcg PO ACBREAKFAST 04/12/20 [History] Aspirin [Halfprin] 81 mg PO WITHBREAKFAST tab.ec 04/15/20 [Rx] Tiotropium [Spiriva HandiHaler] 18 mcg INH DAILY #1 cap 04/15/20 [Rx] levoFLOXacin [Levaquin] 500 mg PO DAILY #3 tablet 04/15/20 [Rx] predniSONE 40 mg PO WITHBREAKFAST #6 tablet 04/15/20 [Rx] Patient Handouts: Chronic Obstructive Pulmonary Disease Exacerbation, Yiva-hj-Styy, Levothyroxine tablets, Chronic Obstructive Pulmonary Disease, Poja-[id number]-[id number], Levofloxacin tablets Referrals: Florin Salmeron MD [Physician] - - Discharge Summary/Plan Comment DC Time >30 min.: No - General Info Date of Service: 04/15/20 - Patient Data Vitals - Most Recent: Last Vital Signs Temp 97.8 F 04/15/20 08:00 Pulse 59 L 04/15/20 08:00 Resp 20 04/15/20 08:00 BP 121/50 L 04/15/20 08:00 Pulse Ox 100 04/15/20 08:00 Weight - Most Recent: 225 lb 9.6 oz I&O - Last 24 hours: Intake & Output 04/14/20 04/15/20 04/15/20 22:59 06:59 14:59 Intake Total 1900 360 Balance 1900 360 Med Orders - Current: Current Medications Acetaminophen (Tylenol Extra Strength) 1,000 mg PO Q8H [facility] Last Admin: 04/15/20 09:21 Dose: 1,000 mg Documented by: Albuterol/Ipratropium (Duoneb 3.0-0.5 Mg/3 Ml) 3 ml NEB Q2H PRN PRN Reason: Wheezing Albuterol/Ipratropium (Duoneb 3.0-0.5 Mg/3 Ml) 3 ml NEB QIDRT [facility] Last Admin: 04/15/20 07:44 Dose: 3 ml Documented by: Aspirin (Halfprin) 81 mg PO WITHBREAKFAST [facility] Last Admin: 04/15/20 09:22 Dose: 81 mg Documented by: Atorvastatin Calcium (Lipitor) 20 mg PO DAILY [facility] Last Admin: 04/15/20 09:22 Dose: 20 mg Documented by: Cyclobenzaprine HCl (Flexeril) 5 mg PO BEDTIME [facility] Last Admin: 04/14/20 20:46 Dose: 5 mg Documented by: Duloxetine HCl (Cymbalta) 30 mg PO DAILY [facility] Last Admin: 04/15/20 09:22 Dose: 30 mg Documented by: Enoxaparin Sodium (Lovenox) 40 mg SUBCUT DAILY [facility] Last Admin: 04/15/20 09:20 Dose: 40 mg Documented by: Guaifenesin (Mucinex) 600 mg PO TID [facility] Last Admin: 04/15/20 09:22 Dose: 600 mg Documented by: Levofloxacin (Levaquin) 500 mg PO DAILY [facility] Last Admin: 04/15/20 09:22 Dose: 500 mg Documented by: Levothyroxine Sodium (Synthroid) 100 mcg PO ACBREAKFAST [facility] Last Admin: 04/14/20 05:47 Dose: 100 mcg Documented by: Montelukast Sodium (Singulair) 10 mg PO DAILY [facility] Last Admin: 04/15/20 09:22 Dose: 10 mg Documented by: Omeprazole (Omeprazole) 20 mg PO BIDAC [facility] Last Admin: 04/14/20 16:27 Dose: 20 mg Documented by: Prednisone (Prednisone) 40 mg PO WITHBREAKFAST [facility] Last Admin: 04/15/20 09:21 Dose: 40 mg Documented by: Sodium Chloride (Saline Flush) 10 ml FLUSH ASDIRECTED PRN PRN Reason: Keep Vein Open Last Admin: 04/14/20 05:47 Dose: 10 ml Documented by: Tiotropium [place] (Spiriva Handihaler) 18 mcg INH DAILY [facility] Last Admin: 04/15/20 10:22 Dose: 18 mcg Documented by: Discontinued Medications Acetaminophen (Tylenol) 650 mg PO Q4H PRN PRN Reason: Pain (Mild 1-3)/fever Methylprednisolone Sodium Succinate (Solu-Medrol) 125 mg IVPUSH ONETIME ONE Stop: 04/12/20 03:08 Last Admin: 04/12/20 03:22 Dose: 125 mg Documented by: Methylprednisolone Sodium Succinate (Solu-Medrol) 40 mg IVPUSH Q6H [facility] Last Admin: 04/13/20 05:18 Dose: 40 mg Documented by: Methylprednisolone Sodium Succinate (Solu-Medrol) 40 mg IVPUSH Q8H [facility] Last Admin: 04/14/20 05:47 Dose: 40 mg Documented by: Methylprednisolone Sodium Succinate (Solu-Medrol) 40 mg IVPUSH Q12H [facility] Stop: 04/14/20 21:00 Last Admin: 04/14/20 17:45 Dose: 40 mg Documented by: Nitroglycerin (Nitrostat) 0.4 mg SL ONETIME ONE Stop: 04/12/20 12:44 Last Admin: 04/12/20 12:49 Dose: 0.4 mg Documented by: Nitroglycerin (Nitrostat) Confirm Administered Dose 0.4 mg .ROUTE .STK-MED ONE Stop: 04/12/20 12:46 Last Admin: 04/12/20 13:59 Dose: Not Given Documented by: - Exam Quality Assessment: Denies: Supplemental Oxygen General: Reports: Alert, Oriented, Cooperative HEENT: Reports: Pupils Equal Neck: Reports: Supple Lungs: Reports: Clear to Auscultation, Normal Respiratory Effort Cardiovascular: Reports: Regular Rate, Regular Rhythm GI/Abdominal Exam: Normal Bowel Sounds, Soft, Non-Tender, No Distention Back Exam: Reports: Normal Inspection Extremities: No Pedal Edema Skin: Reports: Warm, Dry, Intact Neurological: Reports: No New Focal Deficit Psy/Mental Status: Reports: Alert, Normal Affect, Normal Mood
== END 2020-04-15 10:37 | disposition home or self-care (01) | DRG 189 ==
LOC: DL.ED 02:47 → DL.MS 04:31
PROVIDERS: ADMIT Internal Medicine; ATTEND Internal Medicine
DX: J96.01 Acute respiratory failure with hypoxia (principal); J44.1 Chronic obstructive pulmonary disease with (acute) exacerbation; E87.2 Acidosis; Z68.41 Body mass index [BMI] 40.0-44.9, adult; K21.9 Gastro-esophageal reflux disease without esophagitis; K44.9 Diaphragmatic hernia without obstruction or gangrene; F41.9 Anxiety disorder, unspecified; E66.01 Morbid (severe) obesity due to excess calories; E03.9 Hypothyroidism, unspecified; E78.5 Hyperlipidemia, unspecified; E61.1 Iron deficiency; I25.10 Atherosclerotic heart disease of native coronary artery without angina pectoris; Z20.822 Contact with and (suspected) exposure to COVID-19; H54.7 Unspecified visual loss; E78.00 Pure hypercholesterolemia, unspecified; K59.09 Other constipation; M19.90 Unspecified osteoarthritis, unspecified site; E66.9 Obesity, unspecified; Z90.89 Acquired absence of other organs; I25.2 Old myocardial infarction; Z79.890 Hormone replacement therapy; Z79.52 Long term (current) use of systemic steroids; Z79.899 Other long term (current) drug therapy; Z88.1 Allergy status to other antibiotic agents; Z88.8 Allergy status to other drugs, medicaments and biological substances; Z88.5 Allergy status to narcotic agent; Z90.49 Acquired absence of other specified parts of digestive tract; Z90.710 Acquired absence of both cervix and uterus; Z87.891 Personal history of nicotine dependence
CPT/HCPCS: 0240U; 36415; 71046; 80048; 80053; 81001; 83605; 83880; 84484; 85025; 85379; 93005; 94640; 97162; 96374; 99223; 99232; 99238; 99284; 99285-25; A9270-GY; J1650; J2920; J2930; J7512; J7620-GY

== ENCOUNTER 2020-10-14 18:15 | Emergency (ER) | payer MEDICAID ==
[2020-10-14 19:46] VITALS: BP 183/84; PULSE 90
[2020-10-14] MEDS ORDERED: Albuterol/Ipratropium 3.0-0.5 MG/3 ML Neb Soln NEB ONE (20:08)
[2020-10-14] MEDS ORDERED: Acetaminophen 325 MG Tab PO ONE (20:08)
[2020-10-14] MEDS ORDERED: methylPREDNISolone Sodium Succinate 125 MG/2 ML SDV IVPUSH ONE (20:09)
[2020-10-14 20:35] LABS: ANION GAP 15.1 mEq/L (7-13); CHLORIDE,CL 103 mmol/L (98-107); SODIUM,NA 139 mmol/L (136-145)
--- NOTE | 2020-10-14 20:43 | EDM.PDOC ---
ED HPI GENERAL MEDICAL PROBLEM - General Chief Complaint: General Stated Complaint: HARD TIME BREATHING HX OF COPD Time Seen by Provider: 10/14/20 19:30 Source of Information: Reports: Patient History Limitations: Reports: No Limitations - History of Present Illness INITIAL COMMENTS - FREE TEXT/NARRATIVE: ED with c/o SOB, cough body aches since COVID booster vaccine on . Taking tylenol. Using nebs and not much relief. no known exposure. No nsuaea or vomiting. - Related Data Allergies Allergy/AdvReac Type Severity Reaction Status Date / Time cephalexin monohydrate Allergy Rash Verified 10/14/20 18:40 [From Keflex] codeine Allergy Hives Verified 10/14/20 18:40 hydroxyzine Allergy Cannot Verified 10/14/20 18:40 Remember pantoprazole [From Protonix] Allergy Tremors Verified 10/14/20 18:40 propoxyphene napsylate Allergy Cannot Verified 10/14/20 18:40 [From Darvocet-N] Remember ondansetron AdvReac Intermediate Other Verified 10/14/20 18:40 Home Meds: Home Meds Montelukast [Singulair] 10 mg PO DAILY 08/23/13 [History] Mometasone/Formoterol [Dulera 200 MCG/5 MCG] 2 puff INH BID 12/09/14 [History] Diclofenac Sodium [Voltaren 1% Gel] 1 applic TOP ASDIRECTED PRN 01/26/17 [History] Fluticasone Propionate [Flonase Allergy Relief] 1 - 2 spray NASBOTH DAILY 01/26/17 [History] atorvaSTATin [Lipitor] 20 mg PO DAILY 01/26/17 [History] Omeprazole 20 mg PO BID 01/27/17 [History] DULoxetine HCl [Cymbalta] 30 mg PO DAILY 10/28/17 [History] Nitroglycerin [Nitrostat] 0.4 mg PO ASDIRECTED PRN 10/28/17 [History] Albuterol/Ipratropium [DuoNeb 3.0-0.5 MG/3 ML] 3 ml NEB BID PRN 03/29/18 [History] Cyclobenzaprine [Flexeril] 5 mg PO BEDTIME 04/12/20 [History] Docusate Sodium [Colace 50 MG/5 ML Liquid] 5 ml PO DAILY PRN 04/12/20 [History] Levothyroxine [Synthroid] 100 mcg PO ACBREAKFAST 04/12/20 [History] Aspirin [Halfprin] 81 mg PO WITHBREAKFAST tab.ec 04/15/20 [Rx] Tiotropium [Spiriva HandiHaler] 18 mcg INH DAILY #1 cap 04/15/20 [Rx] Past Medical History HEENT History: Reports: Allergic Rhinitis, Impaired Vision, Sinusitis Other HEENT History: wears glasses but not her at this time Cardiovascular History: Reports: High Cholesterol, NE Other Cardiovascular History: HX OF CHEST PAIN AT REST, [place] 2016 Respiratory History: Reports: Asthma, COPD, SOB Gastrointestinal History: Reports: Chronic Constipation, GERD, Hiatal Hernia Other Gastrointestinal History: S/P GASTRIC EROSIONS Genitourinary History: Reports: None WIRE SAWYER History: Reports: Other WIRE SAWYER History: 4 nvd Musculoskeletal History: Reports: Arthritis, Fracture, Other (See Below) Other Musculoskeletal History: foot Neurological History: Reports: None Psychiatric History: Reports: Anxiety Endocrine/Metabolic History: Reports: Hypothyroidism, Obesity/BMI 30+ Hematologic History: Reports: Blood Transfusion(s), Iron Deficiency Immunologic History: Reports: None Oncologic (Cancer) History: Reports: None Dermatologic History: Reports: None - Infectious Disease History Infectious Disease History: Reports: Chicken Pox, Measles - Past Surgical History Head Surgeries/Procedures: Reports: None HEENT Surgical History: Reports: Adenoidectomy, Tonsillectomy Cardiovascular Surgical History: Reports: None Respiratory Surgical History: Reports: None GI Surgical History: Reports: Bariatric Procedure, Cholecystectomy, EGD, Hernia Repair/Other, Fernando Fundoplication, Other (See Below) Other GI Surgeries/Procedures: laser surgery on gallbladder. S/P GASTRECTOMY Female Surgical History: Reports: Hysterectomy Other Female Surgeries/Procedures: partial hysterectomy Endocrine Surgical History: Reports: None Neurological Surgical History: Reports: None Musculoskeletal Surgical History: Reports: Other (See Below) Other Musculoskeletal Surgeries/Procedures:: SCREW LEFT BUNION REPAIR, left foot reconstruction. Screw right Bunion repair Oncologic Surgical History: Reports: None Dermatological Surgical History: Reports: None Social & Family History - Family History Family Medical History: No Pertinent Family History Cardiac: Reports: CAD, Heart Failure, High Cholesterol, Hypertension, [place] Respiratory: Reports: Asthma, COPD GI: Reports: GERD : Reports: Renal Disease/Insufficiency Musculoskeletal: Reports: Arthritis, Back pain, Chronic Neurological: Reports: CVA Endocrine/Metabolic: Reports: Diabetes, type II, Obesity/MBI 30+ Oncologic: Reports: Other (See Below) Other Oncologic Family History: MOTHER HAD STOMACH CA. - Tobacco Use Tobacco Use Status *Q: Current Some Day Tobacco User Years of Tobacco use: 40 Packs/Tins Daily: 0.5 Tobacco Use Comment: states she stopped smoking 3 months ago, just smokes off and on. - Caffeine Use Caffeine Use: Reports: Coffee, Tea Other Caffeine Use: COFFEE AVERAGE OF 6 CUPS DAILY - Recreational Drug Use Recreational Drug Use: No - Living Situation & Occupation Living situation: Reports: with Family Occupation: Unemployed ED ROS GENERAL - Review of Systems Review Of Systems: Comprehensive ROS is negative, except as noted in HPI. ED EXAM, GENERAL - Physical Exam Exam: See Below Exam Limited By: No Limitations General Appearance: Alert, Mild Distress Eye Exam: Bilateral Eye: EOMI Ears: Normal External Exam, Hearing Grossly Normal Nose: Normal Inspection Throat/Mouth: Normal Inspection Head: Atraumatic, Normocephalic Neck: Normal Inspection Respiratory/Chest: Decreased Breath Sounds, Wheezing (improves with cough), Prolonged Expiration, Other (dry cough) Cardiovascular: Regular Rate, Rhythm GI/Abdominal: Normal Bowel Sounds, Soft Extremities: Normal Inspection, Normal Range of Motion Neurological: Alert, Oriented, Normal Cognition Psychiatric: Normal Affect, Normal Mood Skin Exam: Warm, Dry, Intact, Normal Color Course - Vital Signs Last Recorded V/S: Last Vital Signs Temp 97.3 F 10/14/20 19:45 Pulse 90 10/14/20 19:45 Resp 20 10/14/20 19:45 BP 183/84 H 10/14/20 19:45 Pulse Ox 95 10/14/20 19:45 - Orders/Labs/Meds Labs: Laboratory Tests 10/14/20 10/14/20 10/14/20 Range/Units 20:10 20:15 20:15 WBC 15.3 H (5.0-10.0) 10^3/uL RBC 4.72 (4.2-5.4) 10^6/uL Hgb 11.8 L (12.0-16.0) g/dL Hct 38.4 (37.0-47.0) % MCV 81.4 (80-100) fL MCH 25.0 L (27.0-34.0) pg MCHC 30.7 L (33.0-35.0) g/dL Plt Count 298 (150-450) 10^3/uL Neut % (Auto) 83.0 H (42.2-75.2) % Lymph % (Auto) 5.9 L (20.5-50.1) % Lares % (Auto) 5.2 (2-8) % Eos % (Auto) 5.7 H (1.0-3.0) % Baso % (Auto) 0.2 (0.0-1.0) % Sodium 139 (136-145) mmol/L Potassium 4.1 (3.5-5.1) mmol/L Chloride 103 (98-107) mmol/L Carbon Dioxide 25 (21-32) mmol/L Anion Gap 15.1 H (7-13) mEq/L BUN 13 (7-18) mg/dL Creatinine 0.78 (0.55-1.02) mg/dL Est Cr Clr Drug Dosing 60.66 mL/min Estimated GFR (MDRD) > 60 BUN/Creatinine Ratio 16.7 (No establ ref range) Glucose 110 H (70-99) mg/dL Lactic Acid (0.4-2.0) mmol/L Calcium 8.7 (8.5-10.1) mg/dL Total Bilirubin 0.4 (0.2-1.0) mg/dL AST 28 (15-37) U/L ALT 51 (14-59) U/L Alkaline Phosphatase 100 (46-116) U/L B-Natriuretic Peptide 7 (0-100) pg/ml Total Protein 6.8 (6.4-8.2) g/dL Albumin 3.9 (3.4-5.0) g/dL Globulin 2.9 Albumin/Globulin Ratio 1.3 SARS-CoV-2 RNA (ROSA) Negative (NEGATIVE) 10/14/20 Range/Units 20:15 WBC (5.0-10.0) 10^3/uL RBC (4.2-5.4) 10^6/uL Hgb (12.0-16.0) g/dL Hct (37.0-47.0) % MCV (80-100) fL MCH (27.0-34.0) pg MCHC (33.0-35.0) g/dL Plt Count (150-450) 10^3/uL Neut % (Auto) (42.2-75.2) % Lymph % (Auto) (20.5-50.1) % Lares % (Auto) (2-8) % Eos % (Auto) (1.0-3.0) % Baso % (Auto) (0.0-1.0) % Sodium (136-145) mmol/L Potassium (3.5-5.1) mmol/L Chloride (98-107) mmol/L Carbon Dioxide (21-32) mmol/L Anion Gap (7-13) mEq/L BUN (7-18) mg/dL Creatinine (0.55-1.02) mg/dL Est Cr Clr Drug Dosing mL/min Estimated GFR (MDRD) BUN/Creatinine Ratio (No establ ref range) Glucose (70-99) mg/dL Lactic Acid 1.4 (0.4-2.0) mmol/L Calcium (8.5-10.1) mg/dL Total Bilirubin (0.2-1.0) mg/dL AST (15-37) U/L ALT (14-59) U/L Alkaline Phosphatase (46-116) U/L B-Natriuretic Peptide (0-100) pg/ml Total Protein (6.4-8.2) g/dL Albumin (3.4-5.0) g/dL Globulin Albumin/Globulin Ratio SARS-CoV-2 RNA (ROSA) (NEGATIVE) Meds: Medications Discontinued Medications Generic Name Dose Route Start Last Admin Trade Name Pedro Luis PRN Reason Stop Dose Admin Acetaminophen 650 mg 10/14/20 20:08 10/14/20 20:22 Acetaminophen 325 Mg Tab PO 10/14/20 20:09 650 mg NOW ONE Administration Albuterol/Ipratropium 3 ml 10/14/20 20:08 10/14/20 20:22 Albuterol/Ipratropium 3.0-0.5 Mg/3 Ml Neb Soln NEB 10/14/20 20:09 3 ml ONETIME ONE Administration Methylprednisolone Sodium Succinate 125 mg 10/14/20 20:09 10/14/20 20:47 Methylprednisolone Sodium Succinate 125 Mg/2 Ml Sdv IVPUSH 10/14/20 20:10 125 mg ONETIME ONE Administration Departure - Departure Time of Disposition: 21:33 Disposition: Home, Self-Care 01 Condition: Good Clinical Impression: Other malaise and fatigue COPD (chronic obstructive pulmonary disease) Qualifiers: COPD type: COPD with acute exacerbation Qualified Code(s): J44.1 - Chronic obstructive pulmonary disease with (acute) exacerbation - Discharge Information *PRESCRIPTION DRUG MONITORING PROGRAM REVIEWED*: No *COPY OF PRESCRIPTION DRUG MONITORING REPORT IN PATIENT FRANCO: No Instructions: Chronic Obstructive Pulmonary Disease, [id number] Forms: ED Department Discharge Additional Instructions: continue home medications tylenol 500mg every 4 hours as needed for discomfort continue nebulizer Over counter Robitussin or Muccinex for cough Follow up if symptoms worsen Sepsis Event Note (ED) - Focused Exam Vital Signs: Vital Signs Temp Pulse Resp BP Pulse Ox 10/14/20 19:45 97.3 F 90 20 183/84 H 95 10/14/20 18:31 98.2 F 95 20 137/62 95
--- NOTE | 2020-10-14 20:58 | CR ---
PROCEDURE INFORMATION: Exam: XR Chest Exam date and time: 10/14/2020 8:17 PM Age: 60 years old Clinical indication: Cough; Additional info: Copd cough, recent covid booster vaccine TECHNIQUE: Imaging protocol: XR of the chest. Views: 1 view. COMPARISON: CR Chest 2V 04/12/2020 3:35 AM FINDINGS: Lungs: Linear atelectasis left lung base. Pleural spaces: Unremarkable. No pleural effusion. No pneumothorax. Heart/Mediastinum: Large hiatal hernia is suspected to again be present. Bones/joints: Age appropriate. IMPRESSION: 1. Large hiatal hernia is suspected to again be present. 2. Linear atelectasis left lung base. 3. No significant interval change when compared to the CR Chest 2V 04/12/2020 3:35 AM.
== END 2020-10-14 21:42 | disposition home or self-care (01) ==
LOC: DL.ED 18:15
DX: J44.1 Chronic obstructive pulmonary disease with (acute) exacerbation (principal); R53.81 Other malaise; R53.83 Other fatigue; E78.00 Pure hypercholesterolemia, unspecified; I25.2 Old myocardial infarction; K21.9 Gastro-esophageal reflux disease without esophagitis; M19.90 Unspecified osteoarthritis, unspecified site; E03.9 Hypothyroidism, unspecified; F17.210 Nicotine dependence, cigarettes, uncomplicated; E66.9 Obesity, unspecified; Z68.41 Body mass index [BMI] 40.0-44.9, adult; Z88.1 Allergy status to other antibiotic agents; Z88.5 Allergy status to narcotic agent; Z88.8 Allergy status to other drugs, medicaments and biological substances; Z79.82 Long term (current) use of aspirin; Z79.899 Other long term (current) drug therapy; Z20.822 Contact with and (suspected) exposure to COVID-19
CPT/HCPCS: 36415; 71045; 80053; 83605; 83880; 85025; 87635; 96372; 99285; A9270; J2930; J7620-GY; U0002

== ENCOUNTER 2020-12-22 19:19 | Emergency (ER) | payer MEDICAID ==
[2020-12-22] MEDS ORDERED: Albuterol/Ipratropium 3.0-0.5 MG/3 ML Neb Soln NEB ONE (21:48)
[2020-12-22] MEDS ORDERED: methylPREDNISolone Sodium Succinate 125 MG/2 ML SDV IVPUSH ONE (22:09)
--- NOTE | 2020-12-22 22:49 | CR ---
PROCEDURE INFORMATION: Exam: XR Chest Exam date and time: 12/22/2020 10:15 PM Age: 60 years old Clinical indication: Other: Cough chills, copd TECHNIQUE: Imaging protocol: XR of the chest. Views: 1 view. COMPARISON: CR Chest 1V Frontal 10/14/2020 8:17 PM FINDINGS: Lungs: Mild non-specific patchy linear density at both bases. These changes could be inflammatory or could reflect atelectasis. No overt pulmonary edema. Pleural spaces: Small bilateral pleural effusions cannot be excluded. Heart/Mediastinum: A large hiatal hernia is present. Mild cardiomegaly. Bones/joints: No acute bony findings are identified. IMPRESSION: Mild non-specific patchy linear density at both bases. These changes could be inflammatory or could reflect atelectasis.Some of the linear/atelectatic density at the left base could reflect compressive atelectasis due to large hiatal hernia.
[2020-12-22 22:51] LABS: ANION GAP 13.9 mEq/L (7-13); CHLORIDE,CL 106 mmol/L (98-107); SODIUM,NA 141 mmol/L (136-145)
[2020-12-22] MEDS ORDERED: Albuterol 0.083% 2.5 MG/3 ML Neb Soln NEB ONE (23:00)
[2020-12-22] MEDS ORDERED: Azithromycin 250 MG Tab PO ONE (23:01)
--- NOTE | 2020-12-22 23:03 | EDM.PDOC ---
ED HPI GENERAL MEDICAL PROBLEM - General Chief Complaint: Respiratory Problem Stated Complaint: HARD TIME BREATHING Time Seen by Provider: 12/22/20 20:00 Source of Information: Reports: Patient History Limitations: Reports: No Limitations - History of Present Illness INITIAL COMMENTS - FREE TEXT/NARRATIVE: ED with c/o cough congestion, chest tightness , neb not helping. chills, no fever. Around [facility] last week that had bad cold. CoviD negative. Using neb, Also supposed to be on home oxygen at [place] but has not been set up yet. - Related Data Allergies Allergy/AdvReac Type Severity Reaction Status Date / Time cephalexin monohydrate Allergy Rash Verified 12/22/20 22:06 [From Keflex] codeine Allergy Hives Verified 12/22/20 22:06 hydroxyzine Allergy Cannot Verified 12/22/20 22:06 Remember pantoprazole [From Protonix] Allergy Tremors Verified 12/22/20 22:06 propoxyphene napsylate Allergy Cannot Verified 12/22/20 22:06 [From Darvocet-N] Remember ondansetron AdvReac Intermediate Other Verified 12/22/20 22:06 Home Meds: Home Meds Montelukast [Singulair] 10 mg PO DAILY 08/23/13 [History] Mometasone/Formoterol [Dulera 200 MCG/5 MCG] 2 puff INH BID 12/09/14 [History] Diclofenac Sodium [Voltaren 1% Gel] 1 applic TOP ASDIRECTED PRN 01/26/17 [History] Fluticasone Propionate [Flonase Allergy Relief] 1 - 2 spray NASBOTH DAILY 01/26/17 [History] atorvaSTATin [Lipitor] 20 mg PO DAILY 01/26/17 [History] Omeprazole 20 mg PO BID 01/27/17 [History] DULoxetine HCl [Cymbalta] 30 mg PO DAILY 10/28/17 [History] Nitroglycerin [Nitrostat] 0.4 mg PO ASDIRECTED PRN 10/28/17 [History] Albuterol/Ipratropium [DuoNeb 3.0-0.5 MG/3 ML] 3 ml NEB BID PRN 03/29/18 [Histor y] Cyclobenzaprine [Flexeril] 5 mg PO BEDTIME 04/12/20 [History] Docusate Sodium [Colace 50 MG/5 ML Liquid] 5 ml PO DAILY PRN 04/12/20 [History] Levothyroxine [Synthroid] 100 mcg PO ACBREAKFAST 04/12/20 [History] Aspirin [Halfprin] 81 mg PO WITHBREAKFAST tab.ec 04/15/20 [Rx] Tiotropium [Spiriva HandiHaler] 18 mcg INH DAILY #1 cap 04/15/20 [Rx] Past Medical History HEENT History: Reports: Allergic Rhinitis, Impaired Vision, Sinusitis Other HEENT History: wears glasses but not her at this time Cardiovascular History: Reports: High Cholesterol, [place] Other Cardiovascular History: HX OF CHEST PAIN AT [place], [place] 2016 Respiratory History: Reports: Asthma, COPD, SOB Gastrointestinal History: Reports: Chronic Constipation, GERD, Hiatal Hernia Other Gastrointestinal History: S/P GASTRIC EROSIONS Genitourinary History: Reports: None CIVIL PROCESS SERVER History: Reports: Other CIVIL PROCESS SERVER History: 4 nvd Musculoskeletal History: Reports: Arthritis, Fracture, Other (See Below) Other Musculoskeletal History: foot Neurological History: Reports: None Psychiatric History: Reports: Anxiety Endocrine/Metabolic History: Reports: Hypothyroidism, Obesity/BMI 30+ Hematologic History: Reports: Blood Transfusion(s), Iron Deficiency Immunologic History: Reports: None Oncologic (Cancer) History: Reports: None Dermatologic History: Reports: None - Infectious Disease History Infectious Disease History: Reports: Chicken Pox, Measles - Past Surgical History Head Surgeries/Procedures: Reports: None HEENT Surgical History: Reports: Adenoidectomy, Tonsillectomy Cardiovascular Surgical History: Reports: None Respiratory Surgical History: Reports: None GI Surgical History: Reports: Bariatric Procedure, Cholecystectomy, EGD, Hernia Repair/Other, Fernando Fundoplication, Other (See Below) Other GI Surgeries/Procedures: laser surgery on gallbladder. S/P GASTRECTOMY Female Surgical History: Reports: Hysterectomy Other Female Surgeries/Procedures: partial hysterectomy Endocrine Surgical History: Reports: None Neurological Surgical History: Reports: None Musculoskeletal Surgical History: Reports: Other (See Below) Other Musculoskeletal Surgeries/Procedures:: SCREW LEFT BUNION REPAIR, left foot reconstruction. Screw right Bunion repair Oncologic Surgical History: Reports: None Dermatological Surgical History: Reports: None Social & Family History - Family History Family Medical History: No Pertinent Family History Cardiac: Reports: CAD, Heart Failure, High Cholesterol, Hypertension, [place] Respiratory: Reports: Asthma, COPD GI: Reports: GERD : Reports: Renal Disease/Insufficiency Musculoskeletal: Reports: Arthritis, Back pain, Chronic Neurological: Reports: CVA Endocrine/Metabolic: Reports: Diabetes, type II, Obesity/MBI 30+ Oncologic: Reports: Other (See Below) Other Oncologic Family History: MOTHER HAD STOMACH CA. - Tobacco Use Tobacco Use Status *Q: Former Tobacco User Used Tobacco, but Quit: Yes Month/Year Tobacco Last Used: 02/2019 - Caffeine Use Caffeine Use: Reports: Coffee Other Caffeine Use: COFFEE AVERAGE OF 6 CUPS DAILY - Recreational Drug Use Recreational Drug Use: No - Living Situation & Occupation Living situation: Reports: with Family Occupation: Unemployed ED ROS GENERAL - Review of Systems Review Of Systems: Comprehensive ROS is negative, except as noted in HPI. ED EXAM, GENERAL - Physical Exam Exam: See Below Exam Limited By: No Limitations General Appearance: Alert, Anxious Eye Exam: Bilateral Eye: EOMI Ears: Normal External Exam, Hearing Grossly Normal Nose: Normal Inspection Throat/Mouth: Normal Inspection Head: Atraumatic, Normocephalic Neck: Normal Inspection Respiratory/Chest: No Respiratory Distress, Decreased Breath Sounds, Wheezing (insp/exp throughout) Cardiovascular: Normal Peripheral Pulses, Regular Rate, Rhythm GI/Abdominal: Normal Bowel Sounds, Soft Back Exam: Normal Inspection, Full Range of Motion Neurological: Alert, Oriented Skin Exam: Warm, Dry, Intact #1 Interpretation EKG Date: 12/22/20 Time: 19:40 Rhythm: NSR Rate (Beats/Min): 79 Friend: Normal P-Wave: Present QRS: Normal ST-T: Normal Comparison: No Change Course - Vital Signs Last Recorded V/S: Last Vital Signs Temp 98.1 F 12/22/20 23:15 Pulse 74 12/22/20 23:15 Resp 18 12/22/20 23:15 BP 123/46 L 12/22/20 23:15 Pulse Ox 96 12/22/20 23:15 - Orders/Labs/Meds Labs: Laboratory Tests 12/22/20 12/22/20 12/22/20 Range/Units 19:45 22:20 22:20 WBC 7.2 (5.0-10.0) 10^3/uL RBC 4.26 (4.2-5.4) 10^6/uL Hgb 10.7 L (12.0-16.0) g/dL Hct 35.2 L (37.0-47.0) % MCV 82.6 (80-100) fL MCH 25.1 L (27.0-34.0) pg MCHC 30.4 L (33.0-35.0) g/dL Plt Count 344 (150-450) 10^3/uL Neut % (Auto) 50.7 (42.2-75.2) % Lymph % (Auto) 24.3 (20.5-50.1) % Warrick % (Auto) 6.0 (2-8) % Eos % (Auto) 18.3 H (1.0-3.0) % Baso % (Auto) 0.7 (0.0-1.0) % Sodium 141 (136-145) mmol/L Potassium 3.9 (3.5-5.1) mmol/L Chloride 106 (98-107) mmol/L Carbon Dioxide 25 (21-32) mmol/L Anion Gap 13.9 H (7-13) mEq/L BUN 16 (7-18) mg/dL Creatinine 0.73 (0.55-1.02) mg/dL Est Cr Clr Drug Dosing 64.82 mL/min Estimated GFR (MDRD) > 60 BUN/Creatinine Ratio 21.9 (No establ ref range) Glucose 122 H (70-99) mg/dL Lactic Acid (0.4-2.0) mmol/L Calcium 8.6 (8.5-10.1) mg/dL Total Bilirubin 0.4 (0.2-1.0) mg/dL AST 17 (15-37) U/L ALT 39 (14-59) U/L Alkaline Phosphatase 86 (46-116) U/L Total Protein 6.5 (6.4-8.2) g/dL Albumin 3.7 (3.4-5.0) g/dL Globulin 2.8 Albumin/Globulin Ratio 1.3 SARS-CoV-2 RNA (ROSA) Negative (NEGATIVE) 12/22/20 Range/Units 22:20 WBC (5.0-10.0) 10^3/uL RBC (4.2-5.4) 10^6/uL Hgb (12.0-16.0) g/dL Hct (37.0-47.0) % MCV (80-100) fL MCH (27.0-34.0) pg MCHC (33.0-35.0) g/dL Plt Count (150-450) 10^3/uL Neut % (Auto) (42.2-75.2) % Lymph % (Auto) (20.5-50.1) % Warrick % (Auto) (2-8) % Eos % (Auto) (1.0-3.0) % Baso % (Auto) (0.0-1.0) % Sodium (136-145) mmol/L Potassium (3.5-5.1) mmol/L Chloride (98-107) mmol/L Carbon Dioxide (21-32) mmol/L Anion Gap (7-13) mEq/L BUN (7-18) mg/dL Creatinine (0.55-1.02) mg/dL Est Cr Clr Drug Dosing mL/min Estimated GFR (MDRD) BUN/Creatinine Ratio (No establ ref range) Glucose (70-99) mg/dL Lactic Acid 0.7 (0.4-2.0) mmol/L Calcium (8.5-10.1) mg/dL Total Bilirubin (0.2-1.0) mg/dL AST (15-37) U/L ALT (14-59) U/L Alkaline Phosphatase (46-116) U/L Total Protein (6.4-8.2) g/dL Albumin (3.4-5.0) g/dL Globulin Albumin/Globulin Ratio SARS-CoV-2 RNA (ROSA) (NEGATIVE) Meds: Medications Discontinued Medications Generic Name Dose Route Start Last Admin Trade Name Pedro Luis PRN Reason Stop Dose Admin Albuterol 2.5 mg 12/22/20 23:00 12/22/20 23:07 Albuterol 0.083% 2.5 Mg/3 Ml Neb Soln NEB 12/22/20 23:01 2.5 mg ONETIME ONE Administration Albuterol/Ipratropium 3 ml 12/22/20 21:48 12/22/20 21:55 Albuterol/Ipratropium 3.0-0.5 Mg/3 Ml Neb Soln NEB 12/22/20 21:49 3 ml ONETIME ONE Administration Azithromycin 500 mg 12/22/20 23:01 12/22/20 23:06 Azithromycin 250 Mg Tab PO 12/22/20 23:02 500 mg ONETIME ONE Administration Methylprednisolone Sodium Succinate 125 mg 12/22/20 22:09 12/22/20 22:25 Methylprednisolone Sodium Succinate 125 Mg/2 Ml Sdv IVPUSH 12/22/20 22:10 125 mg ONETIME ONE Administration Departure - Departure Time of Disposition: 23:24 Disposition: Home, Self-Care 01 Condition: Good Clinical Impression: COPD exacerbation, Bronchitis - Discharge Information *PRESCRIPTION DRUG MONITORING PROGRAM REVIEWED*: No *COPY OF PRESCRIPTION DRUG MONITORING REPORT IN PATIENT FRANCO: No Instructions: Chronic Obstructive Pulmonary Disease, [id number] Referrals: PCP,None [Primary Care Provider] - Forms: ED Department Discharge Additional Instructions: prednisone taper azithromycin 250mg daily x 4 days albuterol nebulizer every 4 hours clinic follow up this week, follow up in regards to getting home oxygen set up. tylenol 500mg every 4 hours as needed for chills / discomfort Urgent follow up if severe difficulty breathing Sepsis Event Note (ED) - Evaluation Sepsis Screening Result: No Definite Risk
[2020-12-23 00:06] VITALS: BP 123/46; PULSE 74
== END 2020-12-22 23:33 | disposition home or self-care (01) ==
LOC: DL.ED 19:19
DX: J44.1 Chronic obstructive pulmonary disease with (acute) exacerbation (principal); E78.00 Pure hypercholesterolemia, unspecified; I25.2 Old myocardial infarction; J44.9 Chronic obstructive pulmonary disease, unspecified; E03.9 Hypothyroidism, unspecified; E66.9 Obesity, unspecified; Z88.1 Allergy status to other antibiotic agents; Z88.5 Allergy status to narcotic agent; Z88.8 Allergy status to other drugs, medicaments and biological substances; Z79.82 Long term (current) use of aspirin; Z79.899 Other long term (current) drug therapy; Z87.891 Personal history of nicotine dependence; Z20.822 Contact with and (suspected) exposure to COVID-19; Z68.41 Body mass index [BMI] 40.0-44.9, adult
CPT/HCPCS: 36415; 71045; 80053; 83605; 85025; 87040; 87635; 93005; 94640; 96374; 99285; A9270; J2930; J7613-GY; J7620-GY; U0002

== ENCOUNTER → 2021-06-04 | Day surgery (SDC) | payer MEDICAID ==
[~2021-06-04] MED LIST changes: -Clindamycin Phosphate 600 MG in Dextrose 5% in Water 50 ML IV ONE; +Dextrose 5%-0.45% NaCl 1,000 ML IV SCH; +Midazolam 1 MG/ML 2 ML SDV IV ONE; +Midazolam 1 MG/ML 2 ML SDV ONE; -Sodium Chloride 0.9% 10 ML Syringe FLUSH PRN; +fentaNYL 100 MCG/2 ML SDV IV ONE; +fentaNYL 100 MCG/2 ML SDV ONE
[2021-06-04 10:59] VITALS: BP 114/43; PULSE 59
== END | disposition home or self-care (01) ==
LOC: DL.ENDO 06:25
PROVIDERS: ATTEND Internal Medicine Gastroenterology
DX: K29.50 Unspecified chronic gastritis without bleeding (principal); K31.89 Other diseases of stomach and duodenum; K90.0 Celiac disease; K31.84 Gastroparesis; D50.9 Iron deficiency anemia, unspecified; E66.09 Other obesity due to excess calories; K44.9 Diaphragmatic hernia without obstruction or gangrene; J44.9 Chronic obstructive pulmonary disease, unspecified; N83.209 Unspecified ovarian cyst, unspecified side; F17.200 Nicotine dependence, unspecified, uncomplicated; K21.9 Gastro-esophageal reflux disease without esophagitis; F41.1 Generalized anxiety disorder; E06.3 Autoimmune thyroiditis; Z88.6 Allergy status to analgesic agent; Z88.5 Allergy status to narcotic agent; Z68.39 Body mass index [BMI] 39.0-39.9, adult; Z90.711 Acquired absence of uterus with remaining cervical stump; Z90.49 Acquired absence of other specified parts of digestive tract; Z98.890 Other specified postprocedural states; Z87.19 Personal history of other diseases of the digestive system; Z01.812 Encounter for preprocedural laboratory examination; Z20.822 Contact with and (suspected) exposure to COVID-19
CPT/HCPCS: 87077; J2250; J3010; J7042; U0002

== ENCOUNTER 2021-06-08 07:46 | Day surgery (SDC) | payer MEDICAID ==
[~2021-06-08 07:46] MED LIST changes: -Midazolam 1 MG/ML 2 ML SDV IV ONE; +Sodium Chloride 0.9% 10 ML Syringe FLUSH PRN; -fentaNYL 100 MCG/2 ML SDV IV ONE
[2021-06-08] MEDS ORDERED: Midazolam 1 MG/ML 2 ML SDV IV ONE ×7 (07:47→08:51)
[2021-06-08] MEDS ORDERED: fentaNYL 100 MCG/2 ML SDV IV ONE ×4 (07:47→08:53)
[2021-06-08] MEDS ORDERED: Sodium Chloride 0.9% 10 ML Syringe FLUSH SCH (09:00)
[2021-06-08 12:12] VITALS: BP 133/50; PULSE 60
== END 2021-06-08 11:10 | disposition home or self-care (01) ==
LOC: DL.ENDO 07:46
PROVIDERS: ATTEND Internal Medicine Gastroenterology
DX: R19.7 Diarrhea, unspecified (principal); R10.9 Unspecified abdominal pain; K64.8 Other hemorrhoids; E03.9 Hypothyroidism, unspecified; D50.9 Iron deficiency anemia, unspecified; E66.09 Other obesity due to excess calories; K44.9 Diaphragmatic hernia without obstruction or gangrene; F41.1 Generalized anxiety disorder; K21.9 Gastro-esophageal reflux disease without esophagitis; Z98.890 Other specified postprocedural states; Z68.39 Body mass index [BMI] 39.0-39.9, adult
CPT/HCPCS: J2250; J3010; J7042

== ENCOUNTER 2022-01-24 13:37 | Emergency (ER) | payer MEDICAID ==
[2022-01-24 13:49] VITALS: BP 126/70; PULSE 76
[2022-01-24 14:52] LABS: CORONAVIRUS COVID-19 NAA NEGATIVE (NEGATIVE); RESPIRATORY SYNCYTIAL VIR NAA NEGATIVE (NEGATIVE)
[2022-01-24 15:18] LABS: ANION GAP 12.8 mEq/L (7-13)
[2022-01-24] MEDS: Amoxicillin/Clavulanate K 875-125 MG Tab PO ONE (15:44)
[2022-01-24] MEDS: Albuterol/Ipratropium 3.0-0.5 MG/3 ML Neb Soln NEB ONE (15:45)
[2022-01-24] MEDS: methylPREDNISolone Sodium Succinate 125 MG/2 ML SDV IM ONE (15:46)
== END 2022-01-24 16:01 | disposition home or self-care (01) ==
LOC: DL.ED 13:37
DX: J44.1 Chronic obstructive pulmonary disease with (acute) exacerbation (principal); E78.00 Pure hypercholesterolemia, unspecified; I25.2 Old myocardial infarction; E66.9 Obesity, unspecified; Z68.41 Body mass index [BMI] 40.0-44.9, adult; Z88.1 Allergy status to other antibiotic agents; Z88.5 Allergy status to narcotic agent; Z88.8 Allergy status to other drugs, medicaments and biological substances; Z79.899 Other long term (current) drug therapy; Z79.82 Long term (current) use of aspirin; Z90.49 Acquired absence of other specified parts of digestive tract; Z90.710 Acquired absence of both cervix and uterus; Z20.822 Contact with and (suspected) exposure to COVID-19
CPT/HCPCS: 0241U; 36415; 71045; 80053; 83605; 85025; 87040; 96372; 99285; A9270; J2930; J7620-GY

== ENCOUNTER 2022-04-12 17:41 | Emergency (ER) | payer MEDICAID ==
[2022-04-12 17:49] VITALS: BP 159/78
[2022-04-12] MEDS ORDERED: Sodium Chloride 0.9% 10 ML Syringe FLUSH PRN (17:50)
[2022-04-12] MEDS ORDERED: methylPREDNISolone Sodium Succinate 125 MG/2 ML SDV IVPUSH ONE (17:52)
[2022-04-12] MEDS ORDERED: Albuterol/Ipratropium 3.0-0.5 MG/3 ML Neb Soln NEB ONE (17:52)
[2022-04-12 18:28] LABS: ANION GAP 14.7 mEq/L (7-13); CHLORIDE,CL 105 mmol/L (98-107); SODIUM,NA 141 mmol/L (136-145)
[2022-04-12 18:29] LABS: ESTIMATED GFR 65 mL/min (>=60)
[2022-04-12 18:40] VITALS: PULSE 91
[2022-04-12 19:02] LABS: CORONAVIRUS COVID-19 NAA NEGATIVE (NEGATIVE); RESPIRATORY SYNCYTIAL VIR NAA NEGATIVE (NEGATIVE)
== END 2022-04-12 18:47 | disposition home or self-care (01) ==
LOC: DL.ED 17:41
DX: J44.1 Chronic obstructive pulmonary disease with (acute) exacerbation (principal); E78.00 Pure hypercholesterolemia, unspecified; I25.2 Old myocardial infarction; K21.9 Gastro-esophageal reflux disease without esophagitis; M19.90 Unspecified osteoarthritis, unspecified site; E03.9 Hypothyroidism, unspecified; E66.9 Obesity, unspecified; Z68.41 Body mass index [BMI] 40.0-44.9, adult; Z87.891 Personal history of nicotine dependence; Z79.82 Long term (current) use of aspirin; Z79.899 Other long term (current) drug therapy; Z88.1 Allergy status to other antibiotic agents; Z88.5 Allergy status to narcotic agent; Z88.8 Allergy status to other drugs, medicaments and biological substances; Z20.822 Contact with and (suspected) exposure to COVID-19
CPT/HCPCS: 0241U; 36415; 71045; 80053; 83605; 83880; 84484; 85025; 93005; 94640; 96374; 99285; J2930; 93010; 99284; J7620-GY

== ENCOUNTER 2022-08-12 19:21 | Emergency (ER) | payer MEDICAID ==
[2022-08-12] MEDS ORDERED: Sodium Chloride 0.9% 10 ML Syringe FLUSH PRN (19:36)
[2022-08-12 19:51] LABS: BASOPHILS PERCENT AUTO 0.2 % (0.0-1.0); EOSINOPHILS PERCENT AUTO 4.2 % (1.0-3.0); HEMOGLOBIN 9.4 g/dL (12.0-16.0); LYMPHOCYTES PERCENT AUTO 7.9 % (20.5-50.1); MEAN CORPUSCULAR HEMOGLOBIN 20.8 pg (27.0-34.0); MEAN CORPUSCULAR HGB CONC 29.4 g/dL (33.0-35.0); MONOCYTES PERCENT AUTO 6.3 % (2-8); NEUTROPHILS PERCENT AUTO 81.4 % (42.2-75.2); PLATELET COUNT,PLT 335 10^3/uL (150-450); RED BLOOD CELL COUNT 4.51 10^6/uL (4.2-5.4)
[2022-08-12] MEDS ORDERED: Albuterol/Ipratropium 3.0-0.5 MG/3 ML Neb Soln NEB ONE (19:53)
[2022-08-12] MEDS ORDERED: methylPREDNISolone Sodium Succinate 125 MG/2 ML SDV IVPUSH ONE (19:53)
[2022-08-12] MEDS ORDERED: Ondansetron 4 MG/2 ML SDV IVPUSH ONE (19:53)
[2022-08-12 20:10] LABS: A/G RATIO 1.2; ALBUMIN 3.7 g/dL (3.4-5.0); ANION GAP 12.7 mEq/L (7-13); BILIRUBIN TOTAL 0.5 mg/dL (0.2-1.0); BUN/CREATININE RATIO 16.2 (No establ ref range); C-REACTIVE PROTEIN 5.2 mg/dL (0.0-0.9); CALCIUM 8.4 mg/dL (8.5-10.1); CREATININE 0.74 mg/dL (0.55-1.02); EST CRCL DRUG DOSING (CG) 62.34 mL/min; POTASSIUM,K 3.7 mmol/L (3.5-5.1); PROTEIN TOTAL,TP 6.8 g/dL (6.4-8.2)
[2022-08-12 20:14] LABS: LACTIC ACID 1.2 mmol/L (0.4-2.0)
[2022-08-12] MEDS ORDERED: Amoxicillin/Clavulanate K 875-125 MG Tab PO ONE (20:18)
[2022-08-12 20:44] VITALS: BP 125/76; PULSE 88
== END 2022-08-12 20:42 | disposition home or self-care (01) ==
LOC: DL.ED 19:21
DX: J44.1 Chronic obstructive pulmonary disease with (acute) exacerbation (principal); I25.2 Old myocardial infarction; E78.00 Pure hypercholesterolemia, unspecified; K21.9 Gastro-esophageal reflux disease without esophagitis; M19.90 Unspecified osteoarthritis, unspecified site; E03.9 Hypothyroidism, unspecified; E66.9 Obesity, unspecified; Z68.39 Body mass index [BMI] 39.0-39.9, adult; Z86.16 Personal history of COVID-19; Z88.1 Allergy status to other antibiotic agents; Z88.5 Allergy status to narcotic agent; Z88.8 Allergy status to other drugs, medicaments and biological substances; Z79.899 Other long term (current) drug therapy; Z79.82 Long term (current) use of aspirin
CPT/HCPCS: 36415; 71045; 80053; 83605; 84484; 85025; 86140; 87804; 93005; 94640; 96374; 96375; 99285-25; A9270-GY; J2405; J2930; J3490; J7620-GY; U0002

== ENCOUNTER 2022-10-31 11:37 | Emergency (ER) | payer MEDICAID ==
[2022-10-31 11:04] VITALS: BP 114/103; PULSE 89
[2022-10-31 11:12] LABS: BASOPHILS PERCENT AUTO 0.2 % (0.0-1.0); EOSINOPHILS PERCENT AUTO 5.6 % (1.0-3.0); HEMATOCRIT 36.4 % (37.0-47.0); HEMOGLOBIN 10.5 g/dL (12.0-16.0); LYMPHOCYTES PERCENT AUTO 2.4 % (20.5-50.1); MEAN CORPUSCULAR HEMOGLOBIN 21.3 pg (27.0-34.0); MEAN CORPUSCULAR HGB CONC 28.8 g/dL (33.0-35.0); MEAN CORPUSCULAR VOLUME 73.8 fL (80-100); MONOCYTES PERCENT AUTO 2.5 % (2-8); NEUTROPHILS PERCENT AUTO 89.3 % (42.2-75.2); PLATELET COUNT,PLT 279 10^3/uL (150-450); RED BLOOD CELL COUNT 4.93 10^6/uL (4.2-5.4); WHITE BLOOD CELL COUNT,WBC 10.2 10^3/uL (5.0-10.0)
[2022-10-31 11:33] LABS: A/G RATIO 1.3; ALANINE AMINOTRANSFERASE,ALT 37 U/L (14-59); ALBUMIN 3.7 g/dL (3.4-5.0); ALKALINE PHOSPHATASE 79 U/L (46-116); ASPARTATE AMNIOTRANSFERASE,AST 24 U/L (15-37); BILIRUBIN TOTAL 0.6 mg/dL (0.2-1.0); BLOOD UREA NITROGEN,BUN 19 mg/dL (7-18); C-REACTIVE PROTEIN 0.64 ng/dL (<=0.30); CALCIUM 7.7 mg/dL (8.5-10.1); CARBON DIOXIDE,CO2 24 mmol/L (21-32); CHLORIDE,CL 105 mmol/L (98-107); CREATININE 0.73 mg/dL (0.55-1.02); EST CRCL DRUG DOSING (CG) 62.65 mL/min; GLUCOSE RANDOM 124 mg/dL (70-99); LIPASE 34 U/L (16-77); MAGNESIUM 1.7 mg/dL (1.8-2.4); PROTEIN TOTAL,TP 6.5 g/dL (6.4-8.2); SODIUM,NA 138 mmol/L (136-145)
[2022-10-31 11:34] LABS: LACTIC ACID 1.5 mmol/L (0.4-2.0)
[2022-10-31 11:35] LABS: PROTHROMBIN TIME 10.1 SEC (9.0-12.0); PTT,PARTIAL THROMBOPLSTIN TIME 25.6 SEC (22.0-34.0)
[2022-10-31 11:36] LABS: ESTIMATED GFR 93 mL/min (>=60); ETHANOL BLOOD MEDICAL < 3 mg/dL (0)
[2022-10-31 11:36] LABS: APPEARANCE,URINE SLIGHTLY CLOUDY (CLEAR); BILIRUBIN,URINE NEGATIVE (NEGATIVE); COLOR,URINE YELLOW (YELLOW); GLUCOSE,URINE NEGATIVE (NEGATIVE); KETONES,URINE NEGATIVE (NEGATIVE); LEUKOCYTE ESTERASE,URINE NEGATIVE (NEGATIVE); NITRITE,URINE NEGATIVE (NEGATIVE); OCCULT BLOOD,URINE TRACE-INTACT (NEGATIVE); PROTEIN,URINE TRACE (NEGATIVE); UROBILINOGEN,URINE 0.2 mg/dL (0.2-1.0)
[2022-10-31 11:39] LABS: BENZODIAZEPINE,URINE NEGATIVE (NEGATIVE); MDMA (ECSTASY), URINE NEGATIVE (NEGATIVE); METHADONE,URINE NEGATIVE (NEGATIVE); METHAMPHETAMINES,URINE NEGATIVE (NEGATIVE); OPIATES,URINE NEGATIVE (NEGATIVE)
[2022-10-31 11:40] LABS: AMPHETAMINES,URINE NEGATIVE (NEGATIVE); BARBITURATES,URINE NEGATIVE (NEGATIVE); OXYCODONE,URINE NEGATIVE (NEGATIVE); PHENCYCLIDINE,URINE NEGATIVE (NEGATIVE); TCA,URINE POSITIVE (NEGATIVE)
[2022-10-31] MEDS ORDERED: Ondansetron 4 MG/2 ML SDV IVPUSH ONE (11:43)
[2022-10-31 11:45] LABS: BACTERIA,URINE RARE /HPF (0-FEW/HPF); EPITHELIAL CELLS,URINE MODERATE /HPF (NOT SEEN); MUCUS,URINE MANY /LPF (NOT SEEN); RBC,URINE 0-5 /HPF (0-5); WBC,URINE 0-5 /HPF (0-5/HPF)
== END 2022-10-31 12:14 | disposition home or self-care (01) ==
LOC: DL.ED 11:37
DX: R11.14 Bilious vomiting (principal); J44.1 Chronic obstructive pulmonary disease with (acute) exacerbation; E83.42 Hypomagnesemia; E83.51 Hypocalcemia; D50.9 Iron deficiency anemia, unspecified; I25.2 Old myocardial infarction; E78.00 Pure hypercholesterolemia, unspecified; E66.9 Obesity, unspecified; Z68.41 Body mass index [BMI] 40.0-44.9, adult; Z86.16 Personal history of COVID-19; Z88.1 Allergy status to other antibiotic agents; Z88.5 Allergy status to narcotic agent; Z88.8 Allergy status to other drugs, medicaments and biological substances; Z79.82 Long term (current) use of aspirin; Z79.899 Other long term (current) drug therapy
CPT/HCPCS: 36415; 80053; 80305-QW; 80307; 81001; 83605; 83690; 83735; 84484; 85025; 85610; 85730; 86140; 93010; 96374; 99284; 99284-25; J2405

== ENCOUNTER 2022-11-25 06:18 | Day surgery (SDC) | payer MEDICAID ==
[~2022-11-25 06:18] MED LIST changes: -Midazolam 1 MG/ML 2 ML SDV ONE; -Sodium Chloride 0.9% 10 ML Syringe FLUSH PRN; -fentaNYL 100 MCG/2 ML SDV ONE
[2022-11-25] MEDS ORDERED: Midazolam 1 MG/ML 2 ML SDV ONE (06:22)
[2022-11-25] MEDS ORDERED: fentaNYL 100 MCG/2 ML SDV ONE (06:22)
[2022-11-25] MEDS ORDERED: fentaNYL 100 MCG/2 ML SDV IV ONE ×2 (07:59)
[2022-11-25] MEDS ORDERED: Midazolam 1 MG/ML 2 ML SDV IV ONE ×2 (07:59→08:00)
[2022-11-25 12:20] VITALS: BP 117/60; PULSE 66
== END 2022-11-25 10:00 | disposition home or self-care (01) ==
LOC: DL.ENDO 06:18
PROVIDERS: ATTEND Internal Medicine Gastroenterology
DX: K29.50 Unspecified chronic gastritis without bleeding (principal); K31.9 Disease of stomach and duodenum, unspecified; K31.A0 Gastric intestinal metaplasia, unspecified; K44.9 Diaphragmatic hernia without obstruction or gangrene; J44.9 Chronic obstructive pulmonary disease, unspecified; K21.9 Gastro-esophageal reflux disease without esophagitis; E66.09 Other obesity due to excess calories; Z68.38 Body mass index [BMI] 38.0-38.9, adult; Z90.710 Acquired absence of both cervix and uterus; Z98.890 Other specified postprocedural states
CPT/HCPCS: 87077; J2250; J3010; J7042

== ENCOUNTER 2023-04-03 15:17 | Emergency (ER) | payer MEDICAID ==
[2023-04-03 15:36] VITALS: BP 121/72; PULSE 82
[2023-04-03] MEDS: Take Home: predniSONE 20 MG, 4 Tab Pack PO ONE (15:53)
== END 2023-04-03 15:55 | disposition home or self-care (01) ==
LOC: DL.ED 15:17
DX: R06.2 Wheezing (principal); I25.2 Old myocardial infarction; J44.9 Chronic obstructive pulmonary disease, unspecified; E78.00 Pure hypercholesterolemia, unspecified; E66.9 Obesity, unspecified; E03.9 Hypothyroidism, unspecified; K21.9 Gastro-esophageal reflux disease without esophagitis; Z79.899 Other long term (current) drug therapy; Z87.891 Personal history of nicotine dependence; Z79.82 Long term (current) use of aspirin; Z88.5 Allergy status to narcotic agent; Z88.8 Allergy status to other drugs, medicaments and biological substances; Z68.26 Body mass index [BMI] 26.0-26.9, adult
CPT/HCPCS: 99282; A9270

== ENCOUNTER 2023-08-21 02:00 | Emergency (ER) | payer MEDICAID ==
[2023-08-21 02:09] VITALS: BP 148/67; PULSE 72
[2023-08-21 02:11] LABS: BASOPHILS PERCENT AUTO 0.3 % (0.0-1.0); EOSINOPHILS PERCENT AUTO 0.3 % (1.0-3.0); HEMATOCRIT 36.9 % (37.0-47.0); HEMOGLOBIN 11.2 g/dL (12.0-16.0); LYMPHOCYTES PERCENT AUTO 18.8 % (20.5-50.1); MEAN CORPUSCULAR HGB CONC 30.4 g/dL (33.0-35.0); MEAN CORPUSCULAR VOLUME 85.8 fL (80-100); MONOCYTES PERCENT AUTO 7.4 % (2-8); NEUTROPHILS PERCENT AUTO 73.2 % (42.2-75.2); PLATELET COUNT,PLT 271 10^3/uL (150-450); WHITE BLOOD CELL COUNT,WBC 6.6 10^3/uL (5.0-10.0)
[2023-08-21 02:35] LABS: A/G RATIO 1.3; ALBUMIN 3.5 g/dL (3.4-5.0); ANION GAP 11.4 mEq/L (7-13); BILIRUBIN TOTAL 0.4 mg/dL (0.2-1.0); CALCIUM 8.3 mg/dL (8.5-10.1); CREATININE 0.75 mg/dL (0.55-1.02); EST CRCL DRUG DOSING (CG) 60.72 mL/min; POTASSIUM,K 3.4 mmol/L (3.5-5.1); PROTEIN TOTAL,TP 6.2 g/dL (6.4-8.2)
[2023-08-21 02:38] LABS: INR 0.9 (0.9-1.2); PROTHROMBIN TIME 9.7 SEC (9.0-12.0); PTT,PARTIAL THROMBOPLSTIN TIME 23.7 SEC (22.0-34.0)
[2023-08-21] MEDS: Ketorolac 30 MG/ML SDV IVPUSH ONE (02:38)
[2023-08-21] MEDS: GI Cocktail Oral Solution 30 ML PO ONE (03:51)
== END 2023-08-21 04:39 | disposition home or self-care (01) ==
LOC: DL.ED 02:00
DX: R07.89 Other chest pain (principal); K21.9 Gastro-esophageal reflux disease without esophagitis; I25.2 Old myocardial infarction; J44.9 Chronic obstructive pulmonary disease, unspecified; E78.00 Pure hypercholesterolemia, unspecified; M19.90 Unspecified osteoarthritis, unspecified site; E03.9 Hypothyroidism, unspecified; E66.9 Obesity, unspecified; Z86.16 Personal history of COVID-19; Z79.82 Long term (current) use of aspirin; Z79.899 Other long term (current) drug therapy; Z88.8 Allergy status to other drugs, medicaments and biological substances; Z88.5 Allergy status to narcotic agent
CPT/HCPCS: 36415; 71045; 80053; 83690; 83735; 83880; 84484; 85025; 85610; 85730; 93005; 96374; 99285; A9270; J1885